=== PATIENT | male | born 1935 | race Caucasian/White ===

== ENCOUNTER 2019-09-14 13:17 | Outpatient (CLI) | payer MEDICARE, SELFPAY ==
--- NOTE | ~2019-09-14 | XR_ITS ---
EXAMINATION: XR lg joint inject/asp w image DATE: 09/14/2019 14:19 INDICATION: Right hip pain TECHNIQUE: A time-out was performed to verify the patient's name, date of , and procedure to b e performed. The procedure including the risks, benefits, and alternatives was discussed with the pat ient. Risks discussed included bleeding and infection. The patient understood the risks and agreed to proceed. The skin overlying the right hip joint was prepped and draped in usual sterile fashion. A nesthetic was administered with 1% lidocaine subcutaneously. A 22 G needle was advanced under fluoro scopic guidance into the joint. Injection of 0.6 mL of Omnipaque 240 confirmed intra-articular posit ion of the needle. Subsequently, injectate consisting of 5 mm of a 3:2 mixture of 1% lidocaine: 10 m g/mL Kenalog for a total dosage of 20 mg Kenalog was instilled. Washout of contrast was seen confirmi ng intra-articular administration. The needle was removed and the entry site was cleaned and dressed. There were no immediate complications. Fluoroscopy exposure time was 0.1 minutes. The total number of images was 2. FINDINGS: Real-time fluoroscopy demonstrates the needle in the right hip joint. Severe right hip oste oarthritis. Patient's pain prior to procedure:5/10. Patient's pain following the procedure: 4/10. IMPRESSION: 1. Right hip injection of local anesthetic and steroid with mild decrease in the patient's presenting pain. Reviewed, dictated and finalized at location A. UNICATIONS MANAGER IMPRESSION: 1. Right hip injection of local anesthetic and steroid with mild decrease in th e patient's presenting pain.
== END 2019-09-14 13:18 | disposition home or self-care (01) ==
PROVIDERS: PCP Family Medicine; Visit Provider Orthopaedic Surgery
DX: M16.11 Unilateral primary osteoarthritis, right hip (principal)
CPT/HCPCS: 20610; 77002; J3301; Q9966

== ENCOUNTER 2020-01-04 11:39 | Outpatient (CLI) | payer MEDICARE, SELFPAY ==
--- NOTE | ~2020-01-04 | XR_ITS ---
EXAMINATION: XR lg joint inject/asp w image DATE: 01/04/2020 12:52 INDICATION: Unilateral primary osteoarthritis of the right hip TECHNIQUE: A time-out was performed to verify the patient's name, date of , and procedure to b e performed. The procedure including the risks, benefits, and alternatives was discussed with the pat ient. Risks discussed included bleeding and infection. The patient understood the risks and agreed to proceed. The skin overlying the right hip joint was prepped and draped in usual sterile fashion. A nesthetic was administered with 1% lidocaine subcutaneously. A 22 G needle was advanced under fluoro scopic guidance into the joint. Injection of 0.6 mL of Omnipaque 240 confirmed intra-articular posit ion of the needle. Subsequently, injectate consisting of 7 mm of a 5:2 mixture of 1% lidocaine: 10 m g/mL Kenalog for a total dose of 20 mg Kenalog was instilled. Washout of contrast was seen confirming intra-articular administration. The needle was removed and the entry site was cleaned and dressed. There were no immediate complications. Fluoroscopy exposure time was 0.1 minutes. The total number of images was 2. FINDINGS: Real-time fluoroscopy demonstrates the needle in the right hip joint. Patient's pain prior to procedure:6/10. Patient's pain following the procedure: 2/10. Severe osteoarthritis of the right hip. IMPRESSION: 1. Right hip injection of local anesthetic and steroid with decrease in the patient's presenting pain . Reviewed, dictated and finalized at location A. IMPRESSION: 1. Right hip injection of local anesthetic and steroid with decrease in the pat ient's presenting pain.
== END 2020-01-04 11:40 | disposition home or self-care (01) ==
PROVIDERS: PCP Family Medicine; Visit Provider Orthopaedic Surgery
DX: M16.11 Unilateral primary osteoarthritis, right hip (principal)
CPT/HCPCS: 20610; 77002; J3301; Q9966

== ENCOUNTER 2020-07-07 13:03 | Outpatient (CLI) | payer MEDICARE, SELFPAY ==
--- NOTE | ~2020-07-07 | XR_ITS ---
EXAMINATION: XR lg joint inject/asp w image DATE: 07/07/2020 13:59 INDICATION: Unilateral primary osteoarthritis of the right hip TECHNIQUE: A time-out was performed to verify the patient's name, date of , and procedure to b e performed. The procedure including the risks, benefits, and alternatives was discussed with the pat ient. Risks discussed included bleeding and infection. The patient understood the risks and agreed to proceed. The skin overlying the right hip joint was prepped and draped in usual sterile fashion. A nesthetic was administered with 1% lidocaine subcutaneously. A 22 G needle was advanced under fluoro scopic guidance into the joint. Injection of 0.4 mL of Omnipaque 240 confirmed intra-articular posit ion of the needle. Subsequently, injectate consisting of 7 mL of a 5:2 mixture of 1% lidocaine: 10 m g/mL Kenalog for a total dosage of 20 mg Kenalog was instilled. Washout of contrast was seen confirmi ng intra-articular administration. The needle was removed and the entry site was cleaned and dressed. There were no immediate complications. Fluoroscopy exposure time was 0.2 minutes. The total number of images was 2. FINDINGS: Real-time fluoroscopy demonstrates the needle in the right hip joint. Patient's pain prior to procedure:9/10. Patient's pain following the procedure: 0/10. IMPRESSION: 1. Right hip joint injection of local anesthetic and steroid with decrease in the patient's presentin g pain. Reviewed, dictated and finalized at location A. MACHINIST IMPRESSION: 1. Right hip joint injection of local anesthetic and steroid with decrease in t he patient's presenting pain.
== END 2020-07-07 13:04 | disposition home or self-care (01) ==
PROVIDERS: PCP Family Medicine; Visit Provider Orthopaedic Surgery
DX: M16.11 Unilateral primary osteoarthritis, right hip (principal)
CPT/HCPCS: 20610; 77002; J3301; Q9966

== ENCOUNTER 2020-09-29 07:59 | Outpatient (CLI) | payer MEDICARE, SELFPAY ==
--- NOTE | 2020-09-29 09:08 | ECG_ITS ---
Measurements Intervals [place] Rate: 80 P: 26 MS: 155 QRS: -51 QRSD: 100 T: 30 QT: 361 QTc: 417 Interpretive Statements SINUS RHYTHM ATRIAL AND VENTRICULAR PREMATURE COMPLEXES LEFT AXIS DEVIATION VOLTAGE CRITERIA FOR LVH BORDERLINE R WAVE PROGRESSION, ANTERIOR LEADS BORDERLINE T WAVE ABNORMALITY- INFERIOR LEADS BASELINE ARTIFACT- I, II, III, AVR, AVL, AVF, V1 BORDERLINE ECG Electronically Signed On 09-29-2020 9:30:46 [employer] by Joseph Devries D.O.
[2020-09-29 09:55] LABS: Basophils Absolute Auto 0.1 K/mm3 (0.0-0.1); Eosinophils Absolute Auto 0.2 K/mm3 (0-0.3); Hematocrit 44.7 % (42.0-52.0); Immature Granulocyte Absolute 0.02 K/mm3 (0.00-0.031); Immature Granulocyte Percent A 0.4 % (0-0.5); Lymphocytes Absolute Auto 1.14 K/mm3 (0.9-3.2); Lymphocytes Percent Auto 22.4 % (18.3-44.2); Mean Corpuscular HGB Conc 33.6 g/dl (32-36); Mean Corpuscular Hemoglobin 32.9 pg (26-34); Mean Platelet Volume 10.6 fl (7.4-10.4); Monocytes Absolute Auto 0.6 K/mm3 (0.1-0.6); Monocytes Percent Auto 10.8 % (2.6-8.5); Neutrophils Absolute Auto 3.2 K/mm3 (1.3-6.7); Neutrophils Percent Auto 62.4 % (45.5-73.1); Platelet Count Result 158 k/mm3 (150-375); Red Blood Count 4.56 M/mm3 (4.6-6.20); Red Cell Distribution Width 12.7 % (11.5-14.5); White Blood Count 5.1 K/mm3 (4.5-10.0)
[2020-09-29 10:04] LABS: Hemoglobin A1C 5.1 % (<5.7)
[2020-09-29 10:15] LABS: Albumin Level 3.8 g/dL (3.5-5.1); Estimated Glomerular Filt Rate > 60; Glucose 90 mg/dL (75-110)
[2020-09-29 18:32] LABS: Urine Cotinine NEGATIVE
== END 2020-09-29 08:00 | disposition home or self-care (01) ==
LOC: ANHSURGERY 08:01
PROVIDERS: PCP Family Medicine; Visit Provider Orthopaedic Surgery
DX: M16.11 Unilateral primary osteoarthritis, right hip (principal); Z01.818 Encounter for other preprocedural examination; R94.31 Abnormal electrocardiogram [ECG] [EKG]
CPT/HCPCS: 80307; 82040; 82565; 82947; 83036; 85025; 86850; 86900; 86901; 87081; 93005

== ENCOUNTER 2020-10-05 12:35 | Outpatient (CLI) | payer MEDICARE, SELFPAY ==
--- NOTE | 2020-10-05 13:00 | ECHO_ITS ---
Patient Info Name: Pablo Isaac Age: 84 years : 1935 Gender: Male Ht: 69 in Wt: 225 lbs BSA: 2.26 m2 HR: 75 bpm BP: 125 / 72 mmHg Technical Quality: Good Exam Date: 10/05/2020 1:24 PM Exam Location: [facility] Patient Status: Outpatient Admit Date: 10/05/2020 Staff Ordering Physician: Gonzalez Braxton MD Manager Quality Systems: Gregg Peters, TEO, RT Attending Provider: Gonzalez Braxton MD Referring Physician: Fox CURRY; Exam Type: CA echo doppler color flow Study Info Indications R01.1 - Cardiac murmur, unspecified Complete two-dimensional, color flow and Doppler transthoracic echocardiogram is performed. Strain analysis performed. Summary 1. Complete two-dimensional, color flow and Doppler transthoracic echocardiogram is performed. 2. Left ventricular chamber dimension is normal. 3. Left ventricular systolic function is normal, estimated at 65-70%. 4. There is moderately increased left ventricular wall thickness. 5. The left ventricular diastolic function is grade I diastolic dysfunction. 6. E/e '11 is mildly elevated. 7. Global longitudinal strain is normal at -22.1%. 8. Left atrial chamber dimension is mildly enlarged. 9. There is moderate aortic valve sclerosis. 10. There is mild to moderate aortic valve regurgitation. 11. There is mild tricuspid valve regurgitation. 12. No pulmonary hypertension, estimated pulmonary arterial systolic pressure is 31 mmHg. Left Ventricle E/e '11 is mildly elevated. Global longitudinal strain is normal at -22.1%. Left ventricular chamber dimension is normal. Left ventricular systolic function is normal, estimated at 65-70%. There is moderately increased left ventricular wall thickness. The left ventricular diastolic function is grade I diastolic dysfunction. Right Ventricle Right ventricular chamber dimension is normal. Right ventricular systolic function is normal. Left Atria Left atrial chamber dimension is mildly enlarged. Right Atria Right atrial chamber dimension is normal. Aortic Valve The aortic valve is trileaflet. There is moderate aortic valve sclerosis. There is no aortic valve stenosis. There is mild to moderate aortic valve regurgitation. Pulmonic Valve There is no pulmonic regurgitation. Mitral Valve There is no mitral valve stenosis. There is no mitral valve regurgitation. Tricuspid Valve There is mild tricuspid valve regurgitation. No pulmonary hypertension, estimated pulmonary arterial systolic pressure is 31 mmHg. Pericardium/Pleural There is no pericardial effusion. Inferior Vena Cava Normal inferior vena cava with >50% collapse upon inspiration consistent with normal right atrial pressure, 5 mmHg. Aorta The aortic root size at the sinus of Valsalva is normal. Left Ventricular Outflow Tract Name Value Normal LVOT 2D LVOT Diameter 2.2 cm LVOT Doppler LVOT Peak Gradient 6 mmHg LVOT Mean Gradient 2 mmHg LVOT VTI 23 cm LVOT VTI/AV VTI Ratio 0.4 LVOT Stroke Vo
== END 2020-10-05 12:36 | disposition home or self-care (01) ==
LOC: ANHCARD 12:36
PROVIDERS: PCP Family Medicine; Visit Provider Family Medicine
DX: R01.1 Cardiac murmur, unspecified (principal); I36.1 Nonrheumatic tricuspid (valve) insufficiency; I35.1 Nonrheumatic aortic (valve) insufficiency
CPT/HCPCS: 93306

== ENCOUNTER → 2020-10-07 00:14 | Outpatient (CLI) | payer MEDICARE, SELFPAY ==
[2020-10-07 18:59] LABS: SARS-CoV-2 RNA PCR Negative
== END ==
PROVIDERS: PCP Family Medicine; Visit Provider Orthopaedic Surgery
DX: Z01.812 Encounter for preprocedural laboratory examination (principal); Z20.822 Contact with and (suspected) exposure to COVID-19
CPT/HCPCS: C9803; U0003; U0005

== ENCOUNTER 2020-10-11 15:28 | Inpatient (IN) | payer MEDICARE, SELFPAY ==
[2020-09-29 08:10] VITALS: BMI 32.3
[2020-09-29 09:12] VITALS: BP 136/75; PULSE 72; RESP 16; TEMP 37.1; O2SAT 98
[2020-10-10] VITALS (15 sets, daily range): BP systolic 106–167; BP diastolic 52–85; PULSE 77–101; RESP 15–26; TEMP 36.3–37; O2SAT 93–100; BMI 31.9
[2020-10-10] MEDS: ACETAMINOPHEN 500 MG TABLET 1000 MG PO ×3 (06:23→21:51)
[2020-10-10] MEDS: LACTATED RINGERS 1,000 ML 30 ML IV CONT ×2 (06:35→10:40)
[2020-10-10] MEDS: TRANEXAMIC ACID 1,000MG/ISO100 1,000 MG/100 ML BAG 200 MG IVPB (06:35)
--- NOTE | 2020-10-10 06:35 | WPDANESEPPF ---
Anes - Initial Pre Proc Eval Procedure: Operation Date: 10/10/20 07:30 Proposed Procedures p Right Total Hip Arthroplasty, Standard Approach - Omer Leger MD Date/Time: 10/10/20 06:35 Surgeon: Omer Leger MD Pre Op Diagnosis: OA Right Hip Patient Data Age: 84 Gender: M Height: 1.78 m Weight: 102.2 kg Last Vital Signs Temp 37.1 C 09/29/20 09:12 Pulse 72 09/29/20 09:12 Resp 16 09/29/20 09:12 BP 136/75 09/29/20 09:12 Pulse Ox 98 09/29/20 09:12 Allergies Allergy/AdvReac Type Severity Reaction Status Date / Time Aminoglycosides Allergy Mild FACIAL Verified 10/04/20 11:42 SWELLING hydrocortisone Allergy Mild FACIAL Verified 10/04/20 11:42 SWELLING neomycin Allergy Mild FACIAL Verified 10/04/20 11:42 SWELLING atropine Allergy Unknown itching Verified 10/04/20 11:42 polymyxin B Allergy FACIAL Verified 10/04/20 11:42 SWELLING codeine AdvReac Unknown Unknown Verified 10/04/20 11:42 hydrocodone AdvReac Unknown caused Verified 10/04/20 11:42 more pain Home Medications Medication Instructions Recorded Confirmed Type oxybutynin chloride 10 mg 10 mg PO PRN PRN 07/08/19 10/04/20 History tablet,extended release 24 hr aspirin 81 mg tablet,delayed 81 mg PO QNOON 08/26/19 10/04/20 History release calcium carbonate 600 mg calcium 600 mg PO DAILY 01/22/20 10/04/20 History (1,500 mg) tablet carboxymethylcellulose sodium 0.5 2 drop EACH EYE DAILY ml 01/22/20 10/04/20 History % eye drops ibuprofen 200 mg tablet 600 mg PO BID PRN tablet 01/22/20 10/04/20 History naproxen sodium 220 mg capsule 440 mg PO BID PRN cap 01/22/20 10/04/20 History polyethylene glycol 3350 17 17 gm PO PRN PRN 01/22/20 10/04/20 History gram/dose oral powder vit C 250 mg-vit E 90 mg-zinc 40 2 tablet PO ONCE cap 01/22/20 10/04/20 History mg-copper 1 ke-rbkabv-htwvfl capsule acetaminophen [Tylenol Arthritis 650 mg PO Q12H PRN 09/29/20 10/04/20 History Pain] cholecalciferol (vitamin D3) 25 mcg PO DAILY 09/29/20 10/04/20 History diclofenac sodium 2 gm TOPICAL DAILY 09/29/20 10/04/20 History doxazosin 8 mg PO QPM 09/29/20 10/04/20 History ketoconazole 1 applic TOPICAL PRN PRN 09/29/20 10/04/20 History vitamin B complex 1 tablet PO DAILY 09/29/20 10/04/20 History rivaroxaban 10 mg tablet 10 mg PO DAILY #14 tablet 10/04/20 10/04/20 Rx Patient hx anesthesia problems: none Family hx anesthesia problems: none PMFSH Past Medical History Medical History (Updated 10/10/20 @ 06:39 by Marco Stuart DO) Aortic regurgitation mild - moderate Cataracts, bilateral Essential (primary) hypertension History of cancer prostate 2010 Osteoarthritis of right hip Surgical History Surgical History H/O cataract extraction H/O hemorrhoidectomy H/O hernia repair H/O prostatectomy History of appendectomy History of knee replacement Hx of tonsillectomy Family History Family History Grandparent Family history of mental disorder Family history of sudden Father Hypertension Family history of malignant neoplasm of stomach Family history of primary malignant neoplasm of liver Social History Social History Additional smoking assessment comments: DENIES ANY FORM OF TOBACCO USE Alcohol intake: current Living arrangements: with family Spiritual care concerns: No Anes - Eval Final PreProcedure Day of Procedure 10/10/20 06:35 Patient weight: obese Heart: regular rate and rhythm Lungs: clear to auscultation and normal air movement Airway: Mallampati scale class III Neurological: alert and oriented Last oral intake: >/= 8 hours ASA classification: III Emergent: no Anesthetic plan: proceed Anesthesia type and monitoring: general ETT and standard monitoring Informed Consent: The patient's
--- NOTE | 2020-10-10 07:16 | WPDHPUPDATE1 ---
History and Physical Update Update Date/Time: 10/10/20 07:16 History and Physical has been reviewed, including an updated exam of the patient. There are NO changes in the patient's condition. Risks, benefits, and alternatives have been discussed and questions answered. Patient agrees to proceed with procedure.
[2020-10-10] MEDS: ceFAZolin 2 GM/D5W 50 ML 2 GM/50 ML BAG IVPB ×3 (07:28→23:34)
[2020-10-10] MEDS: TRANEXAMIC ACID 1,000 MG/10 ML AMPUL 1000 MG TOPICAL (08:40)
[2020-10-10] MEDS: BUPIVACAINE/EPINEPHRINE 0.25% 50 ML VIAL INFILTRATE (08:40)
[2020-10-10] MEDS: ceFAZolin SODIUM 1 GM VIAL IV PUSH (09:33)
--- NOTE | 2020-10-10 10:34 | P.OP_ITS ---
Procedure Note - Detailed Date of procedure: 10/10/20 Pre-op diagnosis: OA Right Hip Post-op diagnosis: same Procedure performed: right total hip replacement - anterolateral approach Description of procedure: Patient was identified and proper site identified. He was taken back to the operating room and transferred to the OR table. After general anesthetic induction and intubation, he was put in the left lateral decubitus position in the usual manner for a right hip procedure taking care to properly pad and position is torso and extremities. The right hip and thigh were prepped and draped in usual sterile fashion. A curvilinear incision was made over proximal femur. Subcutaneous tissue was sharply dissected down to the gluteus fascia and ITB band was divided in line with the incision. The anterior 1/2 of the abductors were dissected sharply off of the greater trochanter. There is an area of abductor insufficiency anteriorly. Capsule was identified and divided in an inverted T-fashion. The hip was dislocated and a neck cut made one fingerbreadth above the level of the lesser trochanter. The acetabulum was exposed and cleared of debris. It was sequentially reamed up to 57 mm. A 58 G7 cup was impacted into position in about 40? of abduction and 15? of anteversion following the patient's anatomy. Trial liner was placed. Attention was turned to the femur. It was reamed and broached up to a size 12 ingrowth s tem. Intraoperative x-rays showed good position of the hardware but that the femur could be sized up one more size. The trial liner was removed and the real liner for the 36 head seated. The femur was reamed and broached up to size 13. A 13 Integral high offset stem was then seated. This construct with a 36+ 0 head gave good sikh of leg lengths with excellent stability. The neck of the femoral component was cleaned and dried and real 36+ 0 ceramic head was seated. Hip again reduced and stability assessed and was noted be stable through range of motion. Wound was irrigated with a copious amount of sterile saline. 60 cc of 0.25% Marcaine and epinephrine solution was injected around the surgical site and 1 g tranexamic acid was left deep in the wound. The capsule was repaired with 2. Vicryl and 2. Ethibond suture. The abductor was repaired back to the greater trochanter with 5. Ethibond passed through a bony bridge and margin oversewn with 2. Vicryl. IT band was reapproximated with 0 looped PDS suture as was the deeper layers of the subcu. Skin reapproximated with two 0 strata fix and tissue adhesive. Sterile dressing was applied. He tolerated procedure well. He was returned to the supine position awakened, extubated transferred to a bed and taken recovery in stable condition. There were no known intraoperative complications. Estimated blood loss 20 50 cc. He received perioperative antibiotics. Anesthesia: GETA Surgeon: Omer Leger MD Regional Climate Change Analyst: Zunilda Martinez Estimated blood loss (mL): 250 Drains: No Packing: No Pathology: none sent Complications: No immediate complications Condition: stable Disposition: PACU
--- NOTE | 2020-10-10 11:00 | ECG_ITS ---
Measurements Intervals [place] Rate: 86 P: 48 MA: 184 QRS: 13 QRSD: 89 T: 57 QT: 348 QTc: 417 Interpretive Statements SINUS RHYTHM ATRIAL PREMATURE COMPLEX LOW QRS VOLTAGE IN LIMB LEADS BASELINE ARTIFACT- III, AVF, V1, V4-V6 BORDERLINE ECG Electronically Signed On 10-10-2020 11:28:39 CDT by Joseph Devries D.O.
[2020-10-10 12:03] LABS: Troponin I < 0.012 ng/mL (0.000-0.034)
--- NOTE | 2020-10-10 12:14 | ADMGEN ---
This patient, Pablo Isaac, was admitted to 2 Medical Room 256-. Patient/family oriented to hospital policies and general routines including ID bracelet, bed and alarms, visiting hours, pain management, procedures, bathroom and other care routines, personal items, smoking policy, room service/diet, and visiting hours. Information on how to activate the Rapid Response Team has been discussed. Patient/Family are encouraged to report perceived risks to care and to ask questions if they do not understand what they are told or what they should do.
[2020-10-10] MEDS: SODIUM CHLORIDE 0.9% IV 1,000 ML 100 ML IV CONT (12:30)
[2020-10-10] MEDS: oxyCODONE HCL (*CRX) 5 MG TAB IR PO ×4 (12:31→21:51)
[2020-10-10 12:35] LABS: Hematocrit 41.7 % (42.0-52.0); Hemoglobin 14.2 g/dL (14.0-18.0)
[2020-10-10 14:40] LABS: Troponin I < 0.012 ng/mL (0.000-0.034)
--- NOTE | 2020-10-10 15:22 | PM.IMCN ---
Assessment and Plan Assessment and plan (1) Chest pain: Code(s): R07.9 - Chest pain, unspecified Status: Acute Assessment and Plan: Pablo sIaac is a 84 year old male with history of hypertension cardiac murmur for which patient had echo which was essentially normal with ejection fraction of 65% and no significant valvular stenosis, patient with severe osteoarthritis of the right knee had right knee total arthroplasty, surgery was uncomplicated however after the surgery patient felt left-sided chest pain and described as a pressure I do recall from anesthesiologist and we were consulted for further management, from OR first trope was ordered and it was negative and there were no acute changes on EKG. Patient currently sitting in the chair, patient is still complains of left-sided chest pain with deep breath and pain is not reproducible, so far 2 sets of cardiac enzymes are negative will follow-up on the 3rd however patient is clinically stable does not appear to be in acute coronary syndrome, does complaint of right hip and knee pain which is chronic and status post right knee total arthroplasty. Patient is present in the room. (2) Essential (primary) hypertension: Code(s): I10 - Essential (primary) hypertension Status: Acute Assessment and Plan: will monitor (3) Knee pain: Code(s): M25.569 - Pain in unspecified knee Status: Acute Assessment and Plan: Plan is above HPI Data of Consult Consult date: 10/10/20 Requesting Physician: Omer Leger MD Primary Care Provider: Gonzalez Braxton MD Consult Narrative Narrative: Pablo Isaac is a 84 year old male with history of hypertension cardiac murmur for which patient had echo which was essentially normal with ejection fraction of 65% and no significant valvular stenosis, patient with severe osteoarthritis of the right knee had right knee total arthroplasty, surgery was uncomplicated however after the surgery patient felt left-sided chest pain and described as a pressure I do recall from anesthesiologist and we were consulted for further management, from OR first trope was ordered and it was negative and there were no acute changes on EKG. Patient currently sitting in the chair, patient is still complains of left-sided chest pain with deep breath and pain is not reproducible, so far 2 sets of cardiac enzymes are negative will follow-up on the 3rd however patient is clinically stable does not appear to be in acute coronary syndrome, does complaint of right hip and knee pain which is chronic and status post right knee total arthroplasty. Patient is present in the room. Review of Systems Review of Systems: All systems reviewed & are unremarkable except as noted in HPI and below PMFSH Past Medical History Medical History (Updated 10/10/20 @ 16:06 by Bobby Yoo MD) Aortic regurgitation mild - moderate Cataracts, bilateral Essential (primary) hypertension History of cancer prostate 2010 Osteoarthritis of right hip Surgical History Surgical History H/O cataract extraction H/O hemorrhoidectomy H/O hernia repair H/O prostatectomy History of appendectomy History of knee replacement Hx of tonsillectomy Family History Family History Grandparent Family history of mental disorder Family history of sudden Father Hypertension Family history of malignant neoplasm of stomach Family history of primary malignant neoplasm of liver Social History Social History Additional smoking assessment comments: DENIES ANY FORM OF TOBACCO USE Alcohol intake: never Substance use: never Substance use type: does not use Spiritual care concerns: No Meds Home Medications and Allergies Home Medications Medication Instructions Rec
[2020-10-10] MEDS: DOCUSATE SODIUM 100 MG CAPSULE PO (17:52)
[2020-10-10] MEDS: DOXAZOSIN MESYLATE 4 MG TABLET 8 MG PO (18:49)
[2020-10-10] MEDS: FAMOTIDINE 20 MG TABLET PO (21:52)
[2020-10-11] VITALS (7 sets, daily range): BP systolic 113–158; BP diastolic 42–85; PULSE 92–106; RESP 16; TEMP 36.3–37; O2SAT 92–97
--- NOTE | ~2020-10-11 | XR_ITS ---
EXAMINATION: XR chest 1V portable DATE: 10/12/2020 05:41 INDICATION: Left pneumothorax. TECHNIQUE: A single frontal view of the chest was obtained. COMPARISON: Chest single view 10/11/2020 FINDINGS: There are airspace opacities in all lung zones bilaterally. No pleural effusion. There is a small left pneumothorax. There is a left-sided chest tube in expected position. The heart size is no rmal. There are prominent paracardial fat pads. IMPRESSION: 1. Worsened small left pneumothorax. Left-sided chest tube in expected position. 2. Stable diffuse lung disease, consistent with pulmonary edema versus pneumonia. Reviewed, dictated and finalized at location A. IMPRESSION: 1. Worsened small left pneumothorax. Left-sided chest tube in expected position . 2. Stable diffuse lung disease, consistent with pulmonary edema versus pneumoni a.
--- NOTE | ~2020-10-11 | XR_ITS ---
EXAMINATION: XR chest 1V portable DATE: 10/15/2020 05:47 INDICATION: Pneumothorax TECHNIQUE: frontal view of the chest was obtained. COMPARISON: Chest radiograph dated 10/14/2020 FINDINGS: Unchanged left chest tube projecting over the mid left lung zone. Tiny residual left pneumothorax. Th ere is extensive chest wall gas projecting over the left and right hemithoraces. Small lung volumes. Opacities in the bilateral lower lung zones. No pneumothorax or definitive pleural effusion. Cardiome les. IMPRESSION: 1. No interval change in a left chest tube or of a tiny residual left pneumothorax. 2. Small lung volumes with opacities in bilateral lower lung zones which could represent atelectasis and/or pneumonia. Reviewed, dictated and finalized at location A. IMPRESSION: 1. No interval change in a left chest tube or of a tiny residual left pneumotho rax. 2. Small lung volumes with opacities in bilateral lower lung zones which could represent atelectasis and/or pneumonia.
--- NOTE | ~2020-10-11 | XR_ITS ---
EXAMINATION: XR chest 1V portable DATE: 10/14/2020 05:54 INDICATION: Left pneumothorax. TECHNIQUE: A single frontal view of the chest was obtained. COMPARISON: Chest single view 10/13/2020 FINDINGS: There are airspace opacities in the mid and lower lung zones. No pleural effusion or pneumo thorax. There is a left-sided chest tube in expected position. The heart size is normal. There are pr ominent paracardial fat pads. There is gas in left chest wall. IMPRESSION: 1. Left-sided chest tube in expected position. No pneumothorax. 2. Stable airspace opacities in the mid and lower lung zones, consistent with atelectasis versus pneu monia. Reviewed, dictated and finalized at location A. IMPRESSION: 1. Left-sided chest tube in expected position. No pneumothorax. 2. Stable airspace opacities in the mid and lower lung zones, consistent with a telectasis versus pneumonia.
--- NOTE | ~2020-10-11 | XR_ITS ---
EXAMINATION: XR chest 1V portable EXAM DATE: 10/14/2020 14:03 INDICATION: Follow-up left-sided pneumothorax. TECHNIQUE: Portable AP frontal chest x-ray was obtained. Comparison is made to prior examination from earlier same date. FINDINGS: Much more extensive subcutaneous gas is present. There is a left-sided chest tube in positi on. Probable identification of the small left pneumothorax, pleural reflection indicated. This appear s unchanged compared to prior study. There is patchy bibasilar atelectasis, edema or pneumonia. There is tortuosity of the aorta. No sizable pleural effusion. Cardiac silhouette is enlarged but stable i n size compared to prior exam. Thoracic spondylosis and diffuse idiopathic skeletal hyperostosis. IMPRESSION: 1. Small left pneumothorax unchanged. 2. Patchy bibasilar atelectasis, edema and/or pneumonia. 3. Progression of subcutaneous emphysema. Reviewed, dictated and finalized at location A.
--- NOTE | ~2020-10-11 | XR_ITS ---
EXAMINATION: XR surgery orthopedic DATE: 10/10/2020 09:27 INDICATION: Intraoperative evaluation during right total hip arthroplasty TECHNIQUE: Frontal view of the right hip was obtained. COMPARISON: 10/04/2020 FINDINGS: Intraoperative image during a right total hip arthroplasty demonstrate placement of an acetabular com ponent which appears in near anatomic alignment on the single image provided. Again seen is some mixe d lucency and sclerosis at the cephalad aspect of the acetabulum likely related to the prior advanced osteoarthritis. A femoral broach is in place with the proximal tip centered over the acetabular comp onent. Portions of the pelvis are obscured by overlying surgical instrumentation. No fractures in the visualized bones. IMPRESSION: 1. Expected appearance during right total hip arthroplasty. Reviewed, dictated and finalized at location B.
--- NOTE | ~2020-10-11 | XR_ITS ---
EXAMINATION: XR chest 1V portable DATE: 10/14/2020 08:37 INDICATION: Left pneumothorax. Chest tube placed to waterseal. TECHNIQUE: A single frontal view of the chest was obtained. COMPARISON: Chest single view at 5:37 AM FINDINGS: There are airspace opacities in the mid and lower lung zones. No pleural. There is a small left pneumothorax. The heart size is normal. There are prominent paracardial fat pads. There is a lef t-sided chest tube in expected position. There is gas in left chest wall. IMPRESSION: 1. Worsened small left pneumothorax. Left-sided chest tube in expected position. 2. Stable airspace opacities in the mid and lower lung zones, consistent with atelectasis versus pneu monia. Reviewed, dictated and finalized at location A. IMPRESSION: 1. Worsened small left pneumothorax. Left-sided chest tube in expected position . 2. Stable airspace opacities in the mid and lower lung zones, consistent with a telectasis versus pneumonia.
--- NOTE | ~2020-10-11 | XR_ITS ---
EXAMINATION: XR hip RT min 2V EXAM DATE: 10/10/2020 10:51 INDICATION: Postoperative right hip replacement. TECHNIQUE: Portable frontal projection right hip obtained immediately following arthroplasty. Proce soniyae performed by Omer Leger MD. FINDINGS: Patient is status post right hip arthroplasty. The orthopedic hardware is in expected pos ition. There is small amount of subcutaneous gas, some soft tissue swelling. Correlate with proce dure note. IMPRESSION: Status post right hip arthroplasty. Reviewed, dictated and finalized at location A.
--- NOTE | ~2020-10-11 | XR_ITS ---
EXAMINATION: XR chest 1V portable DATE: 10/16/2020 05:46 INDICATION: Pneumothorax TECHNIQUE: frontal view of the chest was obtained. COMPARISON: Chest radiograph dated 10/15/2020 FINDINGS: No interval change in a chest tube projecting obliquely across the mid left hemithorax. There is exte nsive subcutaneous edema bilaterally throughout the chest and extending into the neck which somewhat limits assessment of underlying fine pulmonary parenchymal detail. No evident pneumothorax or pleural effusion. Persistent opacities in the bilateral mid and lower lung zones. Borderline heart size acco unting for AP technique. IMPRESSION: 1. Unchanged left chest tube with no discernible residual pneumothorax. Sensitivity for small pneumot horax is however decreased by the superimposed pattern of extensive subcutaneous edema. Line 2. Persistent mild opacities in the bilateral mid and lower lung zones which could represent atelecta sis and/or pneumonia. Reviewed, dictated and finalized at location A. IMPRESSION: 1. Unchanged left chest tube with no discernible residual pneumothorax. Sensiti vity for small pneumothorax is however decreased by the superimposed pattern of extensive subcutaneous edema. Line 2. Persistent mild opacities in the bilateral mid and lower lung zones which co uld represent atelectasis and/or pneumonia.
--- NOTE | ~2020-10-11 | XR_ITS ---
EXAMINATION: XR chest-chest tube insert/pos EXAM DATE: 10/11/2020 15:20 INDICATION: Chest tube placement. TECHNIQUE: Portable AP frontal chest x-ray was obtained. Comparison is made to prior examination from earlier same date. FINDINGS: Interval insertion of a left-sided chest tube, reexpansion of the left lung. There is some residual reexpansion atelectasis. There is cardiomegaly and pulmonary vascular congestion. Indistinct bilateral reticulation, consider edema and/or infection. Possible small pleural effusions. There are bony degenerative changes. IMPRESSION: 1. Resolution left pneumothorax following chest tube insertion. Reexpanding atelectasis. 2. Bilateral indistinct reticulation, moderate amount of edema and/or infection. Reviewed, dictated and finalized at location A. IMPRESSION: 1. Resolution left pneumothorax following chest tube insertion. Reexpanding at [facility]. 2. Bilateral indistinct reticulation, moderate amount of edema and/or infectio n.
--- NOTE | ~2020-10-11 | XR_ITS ---
EXAMINATION: XR chest 1V portable DATE: 10/11/2020 13:55 INDICATION: Dyspnea. TECHNIQUE: A single frontal view of the chest was obtained. COMPARISON: Chest 2 views 05/01/13 FINDINGS: The patient is rotated to his left. There is a large left pneumothorax. There are mild airs pace opacities in right lung. No pleural effusion. The heart size is normal. IMPRESSION: 1. Large left pneumothorax. I called this result to Dr. Yoo. 2. Mild airspace opacities in right lung, consistent with atelectasis versus pulmonary edema versus p neumonia. Reviewed, dictated and finalized at location A. IMPRESSION: 1. Large left pneumothorax. I called this result to Dr. Yoo. 2. Mild airspace opacities in right lung, consistent with atelectasis versus pu lmonary edema versus pneumonia.
--- NOTE | ~2020-10-11 | XR_ITS ---
XR chest 1V portable 10/17/2020 05:57 Indication: Follow-up pneumothorax Procedure: AP portable chest Comparison: Comparison to multiple prior studies sequentially, with oldest reviewed study dated 10/14. Findings: Interval removal of left chest tube. No definite residual pneumothorax identified. There is extensive subcutaneous emphysema of the chest wall. There is diffuse bilateral airspace disease whic h may represent edema or pneumonia. Small left pleural effusion. Impression: 1: Persistent unchanged bilateral airspace disease which comparison pneumonia or edema. 2: No definite pneumothorax identified post chest tube removal. Reviewed, dictated and finalized at location A. Impression: 1: Persistent unchanged bilateral airspace disease which comparison pneumonia o r edema. 2: No definite pneumothorax identified post chest tube removal.
--- NOTE | ~2020-10-11 | XR_ITS ---
EXAMINATION: XR chest 1V portable DATE: 10/13/2020 05:45 INDICATION: Left pneumothorax. TECHNIQUE: A single frontal view of the chest was obtained. COMPARISON: Chest single view 10/12/2020 FINDINGS: There are airspace opacities in all lung zones bilaterally with a lower lung predominance. No pleural effusion or pneumothorax. There is a left-sided chest tube in expected position. The heart size is normal. There are prominent paracardial fat pads. There is gas in left chest wall. IMPRESSION: 1. No pneumothorax. Left-sided chest tube in expected position. 2. Stable diffuse lung disease, consistent with pulmonary edema versus pneumonia. Reviewed, dictated and finalized at location A. IMPRESSION: 1. No pneumothorax. Left-sided chest tube in expected position. 2. Stable diffuse lung disease, consistent with pulmonary edema versus pneumoni a.
[2020-10-11] MEDS: oxyCODONE HCL (*CRX) 5 MG TAB IR 10 MG PO (01:53)
[2020-10-11 05:48] LABS: Anion Gap 2 mmol/L (8-16); Blood Urea Nitrogen 20 mg/dL (9-20); Calcium 8.2 mg/dL (8.4-10.2); Carbon Dioxide 27 mmol/L (22-30); Chloride 101 mmol/L (98-107); Estimated CRCL calculation 74 ml/min; Estimated Glomerular Filt Rate > 60; Glucose 134 mg/dL (75-110); Potassium 4.2 mmol/L (3.4-5.0); Sodium 130 mmol/L (137-145)
[2020-10-11] MEDS: ACETAMINOPHEN 500 MG TABLET 1000 MG PO ×3 (06:38→20:41)
[2020-10-11] MEDS: ceFAZolin 2 GM/D5W 50 ML 2 GM/50 ML BAG IVPB (06:38)
[2020-10-11] MEDS: oxyCODONE HCL (*CRX) 5 MG TAB IR PO ×3 (06:38→15:50)
--- NOTE | 2020-10-11 07:30 | PM.PNORT ---
Progress Note: A&P Assessment and Plan (1) History of hip replacement: Qualifiers: Laterality: right Qualified Code(s): Z96.641 - Presence of right artificial hip joint Code(s): Z96.649 - Presence of unspecified artificial hip joint Status: Acute Assessment and Plan: 84-year-old male postop day 1 right total hip replacement done through an anterolateral approach. So far he is doing well. I think the chest wall pain that he had was likely secondary to the position of the axillary roll. It has completely resolved. Given his age and ability to get around, I think that he would probably be be a good candidate for a short-term rehab stay. We will work on that and see if that would be available for him tomorrow. Appreciate hospitalist input. Time Spent With Patient Time with patient: 15 - 25 minutes Subjective Subjective Date/Time Seen: 10/11/20 07:30 Interval history: This document created with [id number] technology and is subject to pediatric physician irregularities. 84-year-old male postop day 1 right total hip replacement. Chest wall pain that he had yesterday afternoon and evening has resolved. EKG noted to be unremarkable and troponins as well. Review of Systems Constitutional: Constitutional: Denies chills and Denies fever(s) Eyes: Eyes: Reports no additional eye complaints ENT: Reports system reviewed and no additional complaints, except as documented Cardiovascular: Cardiovascular: Denies chest pain and Denies dyspnea on exertion Respiratory: Respiratory: Reports no additional respiratory complaints and Denies dyspnea on exertion Gastrointestinal: Gastrointestinal: Denies abdominal pain and Denies bloating Exam Const: General: cooperative, no acute distress and alert Nutritional Appearance: other Orientation/consciousness: patient oriented x3 Limitations: no limitations HENMT: Head: normal to inspection Ears: hearing grossly normal bilaterally Face and sinus: face symmetric Mouth: Yes moist mucous membranes Teeth and gingiva: fair dentition Eyes: Alignment and Position: alignment normal and position normal Sclera: sclerae normal Neck: Neck: normal visual inspection and nontender Chest: Chest palpation & inspection: normal inspection of the chest Resp: Effort & Inspection: normal respiratory effort and able to speak in complete sentences GI: Inspection: other (Obese but nondistended) Skin: General skin exam: normal color Rashes: no rashes Neuro: General: patient oriented x3 Cognition (Neuro): normal cognition Speech: normal speech Gait exam (Neuro): Other gait observations present Sensory Exam: normal sensation Extrem: General: normal to inspection and other Other: Exam of the right hip wound shows it to be well opposed and the dressing is dry. No erythema and very little swelling. CT is negative. Grossly motor and sensory function intact to right lower extremity. Exam limited somewhat secondary to right hip. Pain. Psych: Appearance: grossly normal Mental Status: mental status grossly normal Objective Data Vital Signs Vital Signs: Vital Signs - 24 hr 10/10/20 10:40 10/10/20 10:45 10/10/20 11:00 Temperature 98.6 F Pulse Rate 77 79 83 Respiratory Rate 18 20 26 H Blood Pressure 119/52 L 138/54 L 124/64 Pulse Oximetry 98 99 95 10/10/20 11:15 10/10/20 11:30 10/10/20 11:45 Temperature Pulse Rate 86 91 90 Respiratory Rate 21 H 24 H 15 Blood Pressure 143/68 H 137/65 145/72 H Pulse Oximetry 96 95 96 10/10/20 12:00 10/10/20 12:07 10/10/20 12:15 Temperature 97.3 F L Pulse Rate 94 91 92 Respiratory Rate 21 H 20 16 Blood Pressure 148/79 H 144/75 H 146/68 H Pulse Oximetry 99 98 96 10/10/20 12:30 10/10/20 13:00 10/10/20 14:00 Temperature 97.4 F L 97.4 F L 97.8 F Pulse Rate 98 101 H 98 Respiratory Rate 16 16 16 Blood Pressure 147/63 H 149/65 H 106/85 Pulse Oximetry 97 100 93 10/10/20 18:00 10/10/20 22:00 10/11/20 01:54 Temperat
[2020-10-11] MEDS: CHOLECALCIFEROL 1,000 UNITS TABLET 1000 UNITS PO (08:21)
[2020-10-11] MEDS: CALCIUM CARBONATE (OSCAL) 500 MG TABLET PO (08:21)
[2020-10-11] MEDS: DOCUSATE SODIUM 100 MG CAPSULE PO ×2 (08:21→17:26)
[2020-10-11] MEDS: RIVAROXABAN 10 MG TABLET PO (08:22)
[2020-10-11] MEDS: FAMOTIDINE 20 MG TABLET PO ×2 (08:22→20:41)
--- NOTE | 2020-10-11 09:07 | WPDANESPN ---
Anes - Prog Note Post-Op Date/Time: 10/11/20 09:07 Cardiovascular status: normal Respiratory status: normal Airway patency: baseline Mental status: baseline Post-Op hydration status: normal Vital Signs: Last Vital Signs Temp 36.4 C L 10/11/20 05:54 Pulse 92 10/11/20 05:54 Resp 16 10/11/20 05:54 BP 130/42 L 10/11/20 05:54 Pulse Ox 94 10/11/20 05:54 Pain Score (VAS): 0/10. Patient resting up to bedside chair at time of assessment, appears comfortable. PT at bedside. I/O: Intake & Output 10/10/20 10/11/20 10/11/20 23:59 07:59 15:59 Intake Total 1490 500 480 Output Total 300 500 Balance 1190 0 480 Laboratory Tests 10/10/20 12:28 10/11/20 05:14 10/10/20 10/10/20 10/10/20 11:33 12:28 14:11 Hgb 14.2 Hct 41.7 L Sodium Potassium Chloride Carbon Dioxide Anion Gap BUN Creatinine Estim Creat Clear Calc Estimated GFR Glucose Calcium Troponin I < 0.012 < 0.012 10/11/20 05:14 Hgb Hct Sodium 130 L Potassium 4.2 Chloride 101 Carbon Dioxide 27 Anion Gap 2 L BUN 20 Creatinine 0.80 Estim Creat Clear Calc 74 Estimated GFR > 60 Glucose 134 H Calcium 8.2 L Troponin I Post-procedural complaints: none Patient Feedback: Patient satisfied with anesthetic care.
--- NOTE | 2020-10-11 09:57 | PCOTNOTE ---
Attempted to see patient, patient declined at this time due to fatigue. Will attempt patient later this AM or early PM to see for OT.
[2020-10-11 11:36] LABS: Glucose Point of Care 151 (65-105)
--- NOTE | 2020-10-11 13:16 | PM.IMPN ---
Progress Note: A&P Assessment and Plan (1) Chest pain: Code(s): R07.9 - Chest pain, unspecified Status: Acute Assessment and Plan: 10/11/20 13:16 10/10 Pablo Isaac is a 84 year old male with history of hypertension cardiac murmur for which patient had echo which was essentially normal with ejection fraction of 65% and no significant valvular stenosis, patient with severe osteoarthritis of the right knee had right knee total arthroplasty, surgery was uncomplicated however after the surgery patient felt left-sided chest pain and described as a pressure I receive a call from anesthesiologist and we were consulted for further management, from OR first trope was ordered and it was negative and there were no acute changes on EKG. Patient currently sitting in the chair, patient is still complains of left-sided chest pain with deep breath and pain is not reproducible, so far 2 sets of cardiac enzymes are negative will follow-up on the however patient is clinically stable does not appear to be in acute coronary syndrome, does complaint of right hip and knee pain which is chronic and status post right knee total arthroplasty. Patient is present in the room. 10/05 today patient lying in the bed chest pain has resolved patient 3 sets of cardiac enzymes are negative unlikely coronary artery syndrome most likely secondary to mechanical support placed on the left side to to prevent injury to left brachial plexus, did participate in physical therapy, discussed with orthopedic surgeon will monitor patient overnight and continue physical therapy, patient will benefit going to rehab before going home. (2) Essential (primary) hypertension: Code(s): I10 - Essential (primary) hypertension Status: Acute Assessment and Plan: will monitor (3) Knee pain: Code(s): M25.569 - Pain in unspecified knee Status: Acute Assessment and Plan: Plan is above Subjective Date/time seen: 10/11/20 13:16 10/10 Pablo Isaac is a 84 year old male with history of hypertension cardiac murmur for which patient had echo which was essentially normal with ejection fraction of 65% and no significant valvular stenosis, patient with severe osteoarthritis of the right knee had right knee total arthroplasty, surgery was uncomplicated however after the surgery patient felt left-sided chest pain and described as a pressure I receive a call from anesthesiologist and we were consulted for further management, from OR first trope was ordered and it was negative and there were no acute changes on EKG. Patient currently sitting in the chair, patient is still complains of left-sided chest pain with deep breath and pain is not reproducible, so far 2 sets of cardiac enzymes are negative will follow-up on the however patient is clinically stable does not appear to be in acute coronary syndrome, does complaint of right hip and knee pain which is chronic and status post right knee total arthroplasty. Patient is present in the room. 10/05 today patient lying in the bed chest pain has resolved patient 3 sets of cardiac enzymes are negative unlikely coronary artery syndrome most likely secondary to mechanical support placed on the left side to to prevent injury to left brachial plexus, did participate in physical therapy, discussed with orthopedic surgeon will monitor patient overnight and continue physical therapy, patient will benefit going to rehab before going home. Review of Systems Review of Systems: All systems reviewed & are unremarkable except as noted in HPI and below Exam Narrative: Exam Narrative: Moderately obese Patient is comfortable, NAD HEENT: eyes are clear and none icteric LUNGS:CTA HEART: RR S1S2 ABD: BS+, Soft and nontender Lower extremities: no edema MS: Right knee in wound dressing SKIN: nonjaundiced Neuro: grossly intact. Objective Data Vital Signs Vital Signs: Vital Signs - 24 hr 10/10/20
--- NOTE | 2020-10-11 13:30 | PC.NURSE ---
Patient has not voided since catheter removed at 0600 this morning. Patient has attempted to void several times without success. Patient sitting up in chair and denies urge to void. Patient has been drinking po fluids all day. Assisted patient back to bed with assistance of MACHINE OPERATOR HAY STACKER, walker and gait belt. Bladder scanned patient. Scanner reveals < 100 cc urine in bladder. VS obtained. Patient noted to be tachycardic with HR in the low 100s and O2 sat 79-80% on room air. O2 applied at 2 liters per nasal cannula. After taking deep breaths for several minutes, O2 sat increased to 94% on 2 liters. Patient appears slightly short of breath but also c/o pain to right hip after transferring to bed. Notified Dr. Yoo of O2 sat and patient's bladder scan results. Orders received for stat portable CXR.
--- NOTE | 2020-10-11 14:00 | PC.NURSE ---
CXR results revealed large left sided pneumothorax. Dr. Liang consult obtained. Supplies ordered for chest tube insertion and consent obtained. Results explained to patient by Dr. Yoo. Attempted to call patient's without success. Will discuss with her when she arrives back at the hospital.
--- NOTE | 2020-10-11 14:30 | PC.NURSE ---
Kay Leger of pneumothorax and chest tube insertion.
--- NOTE | 2020-10-11 15:00 | PC.NURSE ---
Patient's here. Discussed chest tube insertion with and gave her education on pneumothorax and chest tube. verbalized her understanding of both.
[2020-10-11] MEDS: LIDO 1%/EPINEPHRINE 1:100,000 20 ML VIAL INFILTRATE ×2 (15:10)
[2020-10-11] MEDS: MORPHINE SULFATE (*CRX) 2 MG/ML INJ IV PUSH (15:12)
--- NOTE | 2020-10-11 15:16 | PM.CNGS ---
Assessment and Plan Assessment and plan (1) Pneumothorax, left: Code(s): J93.9 - Pneumothorax, unspecified Status: Acute Assessment and Plan: Patient is post-op day 1 right total hip replacement. Found to have a large left pneumothorax on chest x-ray today. Discussed the patient's case with Dr. Liang. He will urgently place a left-sided chest tube at the bedside today (see procedure note). I discussed the treatment plan with the patient, including the procedure, risks, benefits, and expected outcomes. I also discussed with him that we would expect the chest tube to remain in place for a few days while this resolves. We will continue to monitor him with serial chest x-rays and exams. Will put the chest tube to -20 cm wall suction for today and repeat a chest x-ray in the morning. Encouraged him to continue IS use. Thank you for allowing us to see the patient in consultation and we will continue to follow along with you. (2) Chest pain: Code(s): R07.9 - Chest pain, unspecified Status: Acute Assessment and Plan: Secondary to the left pneumothorax. Cardiac work-up negative. See plan above. (3) History of hip replacement: Qualifiers: Laterality: right Qualified Code(s): Z96.641 - Presence of right artificial hip joint Code(s): Z96.649 - Presence of unspecified artificial hip joint Status: Acute (4) Essential (primary) hypertension: Code(s): I10 - Essential (primary) hypertension Status: Acute Additional Plan Discussed the patient's case and plan of care with Dr. Liang. 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 Following surgery, he had complaints of left-sided chest pain and Hospitalist was consulted. EKG showed no acute ischemic changes. Labs showed negative Troponins x 2. The patient has been on the medical floor and apparently got up with nursing staff to try and use the urinal. He was noted to have increased shortness of breath with exertion. After getting back to bed, the patient remained short of breath and his vital signs were checked with an oxygen saturation of 79%. Chest x-ray was obtained and showed a large left pneumothorax. Our service was subsequently consulted for chest tube placement. The patient is now seen on the medical floor. He is still short of breath at rest. His oxygen saturation is 95% on 3L O2 and his heart rate is 105. No other complaints at this time. Denies ever having a pneumothorax in the past. Lifelong non-smoker. Review of Systems Constitutional: Constitutional: Reports as per HPI, Denies chills, Denies fatigue, Denies fever(s) and Denies headache(s) Eyes: Eyes: Reports no additional eye complaints, Denies change in vision, Denies diplopia and Denies loss of vision ENT: Reports Normal hearing present, Denies dizziness and Denies headache(s) Cardiovascular: Cardiovascular: Reports no additional cardiovascular complaints, Reports chest pain (left-sided chest pain, resolved) and Reports dyspnea Respiratory: Respiratory: Reports no additional respiratory complaints, Reports dyspnea, Reports dyspnea on exertion and Reports wheezing Gastrointestinal: Gastrointestinal: Reports no additional gastrointestinal complaints, Denies abdominal pain and Denies vomiting Genitourinary: Genitourinary: Reports no additional male genitourinary complaints and Reports oliguria Musculoskeletal: Musculoskeletal: Reports no additional musculoskeletal complaints, Reports as per HPI and Reports arthralgias (right hip, s/p YOSI) Neurologic: Reports system reviewed and no additional complaints, except as documented, Denies confusion and Denies dizziness PMFSH Past Medical History Medical History (Reviewed 10/11/20 @ 15:3
--- NOTE | 2020-10-11 15:24 | PCPTNOTE ---
The patient treatment was not able to be completed this afternoon due to patient having procedure bedside. Will plan to continue treatment per plan of care.
--- NOTE | 2020-10-11 16:46 | P.OP_ITS ---
Procedure Note - Detailed Date of procedure: 10/11/20 Pre-op diagnosis: Spontaneous left pneumothorax Spontaneous left pneumothorax Post-op diagnosis: same Procedure performed: Placement left chest tube Description of procedure: Patient was in his hospital bed slightly short of breath but in no acute distress. The left anterior chest was prepped with chlorhexidine. Local anesthetic was infiltrated medial to the nipple areola complex overlying the 6th rib in the midclavicular line. Additional local was infiltrated in the subcutaneous and in the pectoralis major muscle. More local was infiltrated overlying the 6th rib into the intercostal muscle. I then used a curved clamp and bluntly dissected a tunnel down into the intercostal muscle over the 6th rib. A 28 Cuban trocar chest tube was then slowly advanced just over the 6th rib and into the left pleural space. A bateman of air came through the chest tube. Little or no pleural fluid came back. The tube was placed immediately to Pleur-Evac suction. There was some bubbling consistent with air leak but not a severe leak. A sterile occlusive dressing was placed over the site. Portable chest x-ray was performed and showed the chest tube to be in go od position with complete re-expansion of the lung. Patient tolerated the procedure well. Anesthesia: local (0.5% lidocaine with epinephrine) Surgeon: Leobardo iLang MD Software Engineer Developer: ISELA Rahman Estimated blood loss (mL): 2 Drains: Yes (Left chest tube) Packing: No Pathology: none sent Complications: No immediate complications Condition: stable Disposition: floor Findings: Left chest tube in good position by postprocedure chest x-ray, left lung fully re-expanded.
[2020-10-11 17:21] LABS: Hematocrit 39.2 % (42.0-52.0); Hemoglobin 13.5 g/dL (14.0-18.0); Mean Corpuscular HGB Conc 34.4 g/dl (32-36); Mean Corpuscular Hemoglobin 33.5 pg (26-34); Mean Corpuscular Volume 97.3 fl (80-100); Mean Platelet Volume 10.2 fl (7.4-10.4); Platelet Count Result 148 k/mm3 (150-375); Red Blood Count 4.03 M/mm3 (4.6-6.20); Red Cell Distribution Width 12.6 % (11.5-14.5); White Blood Count 13.6 K/mm3 (4.5-10.0)
[2020-10-11] MEDS: DOXAZOSIN MESYLATE 4 MG TABLET 8 MG PO (17:26)
[2020-10-11 23:58] LABS: SARS-CoV-2 RNA PCR Negative
[2020-10-12] VITALS (8 sets, daily range): BP systolic 127–153; BP diastolic 57–76; PULSE 97–108; RESP 16–18; TEMP 36.3–36.9; O2SAT 94–96
[2020-10-12] MEDS: oxyCODONE HCL (*CRX) 5 MG TAB IR 10 MG PO ×2 (01:34→20:33)
[2020-10-12 05:52] LABS: Anion Gap 4 mmol/L (8-16); Blood Urea Nitrogen 19 mg/dL (9-20); Calcium 8.6 mg/dL (8.4-10.2); Carbon Dioxide 29 mmol/L (22-30); Chloride 101 mmol/L (98-107); Estimated CRCL calculation 60 ml/min; Estimated Glomerular Filt Rate > 60; Glucose 110 mg/dL (75-110); Potassium 4.2 mmol/L (3.4-5.0); Sodium 134 mmol/L (137-145)
[2020-10-12] MEDS: ACETAMINOPHEN 500 MG TABLET 1000 MG PO ×3 (06:08→20:34)
[2020-10-12] MEDS: CHOLECALCIFEROL 1,000 UNITS TABLET 1000 UNITS PO (08:59)
[2020-10-12] MEDS: DOCUSATE SODIUM 100 MG CAPSULE PO ×2 (08:59→16:43)
[2020-10-12] MEDS: FAMOTIDINE 20 MG TABLET PO ×2 (08:59→20:34)
[2020-10-12] MEDS: FUROSEMIDE INJ 40 MG/4 ML VIAL IV PUSH (08:59)
[2020-10-12] MEDS: CALCIUM CARBONATE (OSCAL) 500 MG TABLET PO (09:00)
[2020-10-12] MEDS: RIVAROXABAN 10 MG TABLET PO (09:00)
--- NOTE | 2020-10-12 09:16 | PM.PNGS ---
Progress Note: A&P Assessment and Plan (1) Pneumothorax, left: Code(s): J93.9 - Pneumothorax, unspecified Status: Acute Assessment and Plan: Continue chest tube to continuous suction today. Doubt a tiny apical pneumothorax will change his progress significantly. Recheck chest x-ray again tomorrow. Probably place chest tube to water seal tomorrow. Hopefully remove chest tube Saturday or at latest Saturday. Subjective Subjective Date/Time Seen: 10/12/20 09:16 Post Op day: 1 Patient reports: no new complaints, feels better and pain is less Review of Systems Review of Systems: All systems reviewed & are unremarkable except as noted in HPI and below Constitutional: Constitutional: Denies headache(s) Cardiovascular: Cardiovascular: Denies chest pain and Denies dyspnea Respiratory: Respiratory: Denies cough and Denies dyspnea Neurologic: Denies confusion and Denies headache(s) Exam Const: General: comfortable and no acute distress; No confusion Orientation/consciousness: patient oriented x3 and No confusion Resp: Effort & Inspection: normal respiratory effort and other (No pleural leak noted) Auscultation: clear to auscultation bilaterally Neuro: General: patient oriented x3, no focal motor deficits and No confusion Objective Data Vital Signs Vital Signs: Vital Signs - 24 hr 10/11/20 10:00 10/11/20 13:57 10/11/20 17:55 Temperature 36.3 C L 37.0 C Pulse Rate 106 H 100 Respiratory Rate 16 16 Blood Pressure 113/44 L 140/52 L Pulse Oximetry 93 92 97 10/11/20 20:00 10/11/20 22:00 10/12/20 02:00 Temperature 36.9 C 36.7 C Pulse Rate 100 95 97 Respiratory Rate 16 16 18 Blood Pressure 158/85 H 128/71 Pulse Oximetry 97 94 96 10/12/20 06:00 10/12/20 07:45 Temperature 36.3 C L 36.9 C Pulse Rate 102 H 108 H Respiratory Rate 18 18 Blood Pressure 148/76 H 140/75 Pulse Oximetry 96 95 Intake/Output Intake/Output: Intake & Output 10/09/20 10/10/20 10/11/20 10/12/20 23:59 23:59 23:59 23:59 Intake Total 1840 1610 550 Output Total 500 950 800 Balance 1340 660 -250 Meds/Results Medications: Active Medications Generic Name Dose Route Start Last Admin Trade Name Freq PRN Reason Stop Dose Admin Acetaminophen 1,000 mg 10/10/20 14:00 10/12/20 06:08 Acetaminophen 500 Mg Tablet PO 1,000 mg Q8H MAIKEL Administration Calcium Carbonate 500 mg 10/11/20 09:00 10/12/20 09:00 Calcium Carbonate (Oscal) 500 Mg Tablet PO 500 mg QAM MIAKEL Administration Docusate Sodium 100 mg 10/10/20 17:00 10/12/20 08:59 Docusate Sodium 100 Mg Capsule PO 100 mg BID MAIKEL Administration Doxazosin Mesylate 8 mg 10/10/20 18:00 10/11/20 17:26 Doxazosin Mesylate 4 Mg Tablet PO 8 mg QPM MAIKEL Administration Famotidine 20 mg 10/10/20 21:00 10/12/20 08:59 Famotidine 20 Mg Tablet PO 20 mg Q12HR MAIKEL Administration Hydroxyzine HCl 50 mg 10/10/20 12:09 Hydroxyzine Hcl 25 Mg Tablet PO Q4H PRN Itching Cefazolin Sodium 1 gm in 50 mls @ 100 mls/hr 10/11/20 17:00 10/12/20 09:00 Ancef 1 Gm/D5w 50 Ml Pm IVPB 100 mls/hr Q8H MAIKEL Administration Magnesium Hydroxide 30 ml 10/10/20 12:09 Magnesium Hydroxide Susp 30 Ml Udc PO BID PRN Constipation Morphine Sulfate 1 mg 10/11/20 16:52 Morphine Sulfate (*Crx) 2 Mg/Ml Inj IV PUSH Q2H PRN Pain Rated 4-6 Morphine Sulfate 2 mg 10/11/20 16:55 Morphine Sulfate (*Crx) 2 Mg/Ml Inj IV PUSH Q2H PRN Pain Rated 7-10 Naloxone HCl 0.1 mg 10/10/20 12:09 Naloxone Hcl 0.4 Mg/Ml Vial IV PUSH Q2M PRN Opiate Reversal Ondansetron HCl 4 mg 10/10/20 12:09 Ondansetron Inj 4 Mg/2 Ml Vial IV PUSH Q4H PRN Nausea And Vomiting Oxybutynin Chloride 10 mg 10/10/20 12:09 10/12/20 06:11 Oxybutynin Chloride Xl 5 Mg Tab.Er.24 PO 10 mg PRN PRN Administration Bladder Spasms Oxycodone HCl 5 mg 10/10/20 12:09 10/11/20 15:50 Oxycod
--- NOTE | 2020-10-12 12:07 | PM.IMPN ---
Progress Note: A&P Assessment and Plan (1) Chest pain: Code(s): R07.9 - Chest pain, unspecified Status: Acute Assessment and Plan: 10/12/20 12:07 10/10 Pablo Isaac is a 84 year old male with history of hypertension cardiac murmur for which patient had echo which was essentially normal with ejection fraction of 65% and no significant valvular stenosis, patient with severe osteoarthritis of the right knee had right knee total arthroplasty, surgery was uncomplicated however after the surgery patient felt left-sided chest pain and described as a pressure I receive a call from anesthesiologist and we were consulted for further management, from OR first trope was ordered and it was negative and there were no acute changes on EKG. Patient currently sitting in the chair, patient is still complains of left-sided chest pain with deep breath and pain is not reproducible, so far 2 sets of cardiac enzymes are negative will follow-up on the however patient is clinically stable does not appear to be in acute coronary syndrome, does complaint of right hip and knee pain which is chronic and status post right knee total arthroplasty. Patient is present in the room. 10/11 today patient lying in the bed chest pain has resolved patient 3 sets of cardiac enzymes are negative unlikely coronary artery syndrome most likely secondary to mechanical support placed on the left side to to prevent injury to left brachial plexus, did participate in physical therapy, discussed with orthopedic surgeon will monitor patient overnight and continue physical therapy, patient will benefit going to rehab before going home. 10/12, late afternoon pm 10/11 patient left sided chest patient was getting worse and he was short of breath, to further evaluate patient had CXR, received the call from radiologist that patient has a large left sided pneumothorax, I called Dr. Liang and Dr Liang came and place a chest tube and repeat chest x-ray showed resolution of the pneumothorax, this morning patient was seen by Garth, repeat chest x-ray showed small apical pneumo, patient chest tube continous suction, will continue to monitor and further recommendation to follow, chest x-ray is concerning for pulmonary congestion will give Laxis 40mg IV x1. patient will be seen by his orthopedic and further recommendation to follow. (2) Essential (primary) hypertension: Code(s): I10 - Essential (primary) hypertension Status: Acute Assessment and Plan: will monitor (3) Knee pain: Code(s): M25.569 - Pain in unspecified knee Status: Acute Assessment and Plan: Plan is above Subjective Date/time seen: 10/12/20 12:07 10/10 Pablo Isaac is a 84 year old male with history of hypertension cardiac murmur for which patient had echo which was essentially normal with ejection fraction of 65% and no significant valvular stenosis, patient with severe osteoarthritis of the right knee had right knee total arthroplasty, surgery was uncomplicated however after the surgery patient felt left-sided chest pain and described as a pressure I receive a call from anesthesiologist and we were consulted for further management, from OR first trope was ordered and it was negative and there were no acute changes on EKG. Patient currently sitting in the chair, patient is still complains of left-sided chest pain with deep breath and pain is not reproducible, so far 2 sets of cardiac enzymes are negative will follow-up on the however patient is clinically stable does not appear to be in acute coronary syndrome, does complaint of right hip and knee pain which is chronic and status post right knee total arthroplasty. Patient is present in the room. 10/11 today patient lying in the bed chest pain has resolved patient 3 sets of cardiac enzymes are negative unlikely coronary artery syndrome most likely secondary to mechanical support placed on the left side to to prevent injur
--- NOTE | 2020-10-12 12:08 | PM.PNORT ---
Progress Note: A&P Assessment and Plan (1) History of hip replacement: Qualifiers: Laterality: right Qualified Code(s): Z96.641 - Presence of right artificial hip joint Code(s): Z96.649 - Presence of unspecified artificial hip joint Status: Acute Assessment and Plan: Continue with the rehab at this point as his comfort allows. Currently on the total hip therapy protocol. Anticipate discharge to SNF later this week. Appreciate the input of the hospitalists and General surgery. (2) Pneumothorax, left: Code(s): J93.9 - Pneumothorax, unspecified Status: Acute Assessment and Plan: Chest tube management plans per Dr. Liang. Subjective Subjective Date/Time Seen: 10/12/20 12:08 Post Op day: 2 Principal diagnosis: Status post right total hip replacement Interval history: This document created with [id number] technology and is subject to plug making operator irregularities. 82-year-old male who is postop day two right total hip replacement. He was diagnosed with a left pneumothorax yesterday and had a chest tube placed. He feels much better today. Does complain of some stiffness in his right hip area. Pain is well controlled. Review of Systems Constitutional: Constitutional: Denies chills and Denies fever(s) Eyes: Eyes: Reports no additional eye complaints ENT: Reports system reviewed and no additional complaints, except as documented Cardiovascular: Cardiovascular: Denies chest pain and Denies dyspnea on exertion Respiratory: Respiratory: Reports no additional respiratory complaints and Denies dyspnea on exertion Gastrointestinal: Gastrointestinal: Denies abdominal pain and Denies bloating Exam Const: General: cooperative, no acute distress and alert Nutritional Appearance: other Orientation/consciousness: patient oriented x3 Limitations: no limitations HENMT: Head: normal to inspection Ears: hearing grossly normal bilaterally Face and sinus: face symmetric Mouth: Yes moist mucous membranes Teeth and gingiva: fair dentition Eyes: Alignment and Position: alignment normal and position normal Sclera: sclerae normal Neck: Neck: normal visual inspection and nontender Chest: Chest palpation & inspection: normal inspection of the chest Resp: Effort & Inspection: normal respiratory effort and able to speak in complete sentences GI: Inspection: other (Nondistended) Skin: General skin exam: normal color Rashes: no rashes Neuro: General: patient oriented x3 Cognition (Neuro): normal cognition Speech: normal speech Gait exam (Neuro): Other gait observations present Motor exam (neuro): 5/5 motor strength present throughout Sensory Exam: normal sensation Extrem: General: normal to inspection and other Other: Exam of the right hip shows dry dressing, minimal swelling, no erythema. Neurovascular status right lower extremity unremarkable. Psych: Appearance: grossly normal Mental Status: mental status grossly normal Objective Data Vital Signs Vital Signs: Vital Signs - 24 hr 10/11/20 13:57 10/11/20 17:55 10/11/20 20:00 Temperature 98.6 F Pulse Rate 100 100 Respiratory Rate 16 16 Blood Pressure 140/52 L Pulse Oximetry 92 97 97 10/11/20 22:00 10/12/20 02:00 10/12/20 06:00 Temperature 98.4 F 98.0 F 97.4 F L Pulse Rate 95 97 102 H Respiratory Rate 16 18 18 Blood Pressure 158/85 H 128/71 148/76 H Pulse Oximetry 94 96 96 10/12/20 07:45 10/12/20 08:45 Temperature 98.4 F Pulse Rate 108 H Respiratory Rate 18 Blood Pressure 140/75 132/76 Pulse Oximetry 95 96 Intake/Output Intake/Output: Intake & Output 10/09/20 10/10/20 10/11/20 10/12/20 23:59 23:59 23:59 23:59 Intake Total 1840 / 1840 1610 / 1610 600 / 600 Output Total 500 / 500 950 / 950 800 / 800 Balance 1340 / 1340 660 / 660 -200 / -200 Meds/Results Medications: Active Medications Generic Name Dose Route Start Last Admin Trade Name Freq PRN Reason Stop Dose Admin A
--- NOTE | 2020-10-12 15:16 | PC.NURSE ---
On 10/12/20, the student, [Cristina Garnett ], provided care and completed [facility] documentation on this patient. I have reviewed the student's documentation and agree with the findings.
[2020-10-12] MEDS: DOXAZOSIN MESYLATE 4 MG TABLET 8 MG PO (16:46)
[2020-10-12 17:37] LABS: Hematocrit 38.9 % (42.0-52.0); Hemoglobin 13.5 g/dL (14.0-18.0); Mean Corpuscular HGB Conc 34.7 g/dl (32-36); Mean Corpuscular Hemoglobin 33.6 pg (26-34); Mean Corpuscular Volume 96.8 fl (80-100); Mean Platelet Volume 10.4 fl (7.4-10.4); Platelet Count Result 147 k/mm3 (150-375); Red Blood Count 4.02 M/mm3 (4.6-6.20); Red Cell Distribution Width 12.7 % (11.5-14.5); White Blood Count 13.8 K/mm3 (4.5-10.0)
[2020-10-13] VITALS (11 sets, daily range): BP systolic 117–134; BP diastolic 68–77; PULSE 86–107; RESP 16–22; TEMP 36.3–36.6; O2SAT 95–97
[2020-10-13 06:01] LABS: Anion Gap 5 mmol/L (8-16); Blood Urea Nitrogen 31 mg/dL (9-20); Calcium 8.9 mg/dL (8.4-10.2); Carbon Dioxide 26 mmol/L (22-30); Chloride 100 mmol/L (98-107); Estimated CRCL calculation 38 ml/min; Estimated Glomerular Filt Rate 42; Glucose 106 mg/dL (75-110); Potassium 4.1 mmol/L (3.4-5.0); Sodium 131 mmol/L (137-145)
[2020-10-13] MEDS: ACETAMINOPHEN 500 MG TABLET 1000 MG PO ×3 (06:07→21:50)
--- NOTE | 2020-10-13 09:58 | PM.PNGS ---
Progress Note: A&P Assessment and Plan (1) Pneumothorax, left: Code(s): J93.9 - Pneumothorax, unspecified Status: Acute Assessment and Plan: Still has an air leak. Will continue chest tube to suction again today. Recheck chest x-ray again tomorrow. (2) History of hip replacement: Qualifiers: Laterality: right Qualified Code(s): Z96.641 - Presence of right artificial hip joint Code(s): Z96.649 - Presence of unspecified artificial hip joint Status: Acute Subjective Subjective Date/Time Seen: 10/13/20 09:58 Post Op day: 2 Patient reports: feels better, pain is less and other (Breathing better today) Review of Systems Review of Systems: All systems reviewed & are unremarkable except as noted in HPI and below Constitutional: Constitutional: Denies headache(s) Cardiovascular: Cardiovascular: Denies chest pain and Denies dyspnea Respiratory: Respiratory: Denies cough and Denies dyspnea Neurologic: Denies confusion and Denies headache(s) Exam Const: General: comfortable and no acute distress; No confusion Orientation/consciousness: patient oriented x3 and No confusion Resp: Effort & Inspection: normal respiratory effort, able to speak in complete sentences, no audible wheezes, no cough and other (Still has some bubbling consistent with air leak from chest tube.) Auscultation: clear to auscultation bilaterally Neuro: General: patient oriented x3, no focal motor deficits and No confusion Extrem: General: no calf tenderness and no edema Psych: Affect: normal affect Insight: Good insight present (Psych) Judgement: Good judgement present (Psych) Objective Data Vital Signs Vital Signs: Vital Signs - 24 hr 10/12/20 14:00 10/12/20 18:00 10/12/20 20:00 Temperature 36.7 C 36.9 C Pulse Rate 105 H 106 H 106 H Respiratory Rate 18 18 18 Blood Pressure 153/76 H 127/57 L Pulse Oximetry 95 95 95 10/12/20 22:00 10/13/20 02:00 10/13/20 06:00 Temperature 36.8 C 36.6 C 36.5 C Pulse Rate 100 86 100 Respiratory Rate 16 16 16 Blood Pressure 130/64 117/68 126/72 Pulse Oximetry 94 95 95 10/13/20 08:10 Temperature Pulse Rate Respiratory Rate Blood Pressure Pulse Oximetry 96 Intake/Output Intake/Output: Intake & Output 10/10/20 10/11/20 10/12/20 10/13/20 23:59 23:59 23:59 23:59 Intake Total 1840 1610 1280 540 Output Total 326 278 3814 160 Balance 1340 660 280 380 Meds/Results Medications: Active Medications Generic Name Dose Route Start Last Admin Trade Name Freq PRN Reason Stop Dose Admin Acetaminophen 1,000 mg 10/10/20 14:00 10/13/20 06:07 Acetaminophen 500 Mg Tablet PO 1,000 mg Q8H MAIKEL Administration Calcium Carbonate 500 mg 10/11/20 09:00 10/12/20 09:00 Calcium Carbonate (Oscal) 500 Mg Tablet PO 500 mg QAM MAIKEL Administration Docusate Sodium 100 mg 10/10/20 17:00 10/12/20 16:43 Docusate Sodium 100 Mg Capsule PO 100 mg BID MAIKEL Administration Doxazosin Mesylate 8 mg 10/10/20 18:00 10/12/20 16:46 Doxazosin Mesylate 4 Mg Tablet PO 8 mg QPM MAIKEL Administration Famotidine 20 mg 10/10/20 21:00 10/12/20 20:34 Famotidine 20 Mg Tablet PO 20 mg Q12HR MAIKEL Administration Hydroxyzine HCl 50 mg 10/10/20 12:09 Hydroxyzine Hcl 25 Mg Tablet PO Q4H PRN Itching Cefazolin Sodium 1 gm in 50 mls @ 100 mls/hr 10/11/20 17:00 10/13/20 01:51 Ancef 1 Gm/D5w 50 Ml Pm IVPB Infused Q8H MAIKEL Infusion Magnesium Hydroxide 30 ml 10/10/20 12:09 Magnesium Hydroxide Susp 30 Ml Udc PO BID PRN Constipation Morphine Sulfate 1 mg 10/11/20 16:52 Morphine Sulfate (*Crx) 2 Mg/Ml Inj IV PUSH Q2H PRN Pain Rated 4-6 Morphine Sulfate 2 mg 10/11/20 16:55 Morphine Sulfate (*Crx) 2 Mg/Ml Inj IV PUSH Q2H PRN Pain Rated 7-10 Naloxone HCl 0.1 mg 10/10/20 12:09 Naloxone Hcl 0.4 Mg/Ml Vial IV PUSH Q2M PRN Opiate Reversal Ondansetron HCl 4 mg
[2020-10-13] MEDS: RIVAROXABAN 10 MG TABLET PO (09:59)
[2020-10-13] MEDS: CALCIUM CARBONATE (OSCAL) 500 MG TABLET PO (10:00)
[2020-10-13] MEDS: DOCUSATE SODIUM 100 MG CAPSULE PO ×2 (10:00→17:06)
[2020-10-13] MEDS: MAGNESIUM HYDROXIDE SUSP 30 ML UDC PO (10:00)
[2020-10-13] MEDS: FAMOTIDINE 20 MG TABLET PO ×2 (10:00→20:06)
[2020-10-13] MEDS: CHOLECALCIFEROL 1,000 UNITS TABLET 1000 UNITS PO (10:00)
--- NOTE | 2020-10-13 12:08 | PM.PNORT ---
Progress Note: A&P Assessment and Plan (1) History of hip replacement: Qualifiers: Laterality: right Qualified Code(s): Z96.641 - Presence of right artificial hip joint Code(s): Z96.649 - Presence of unspecified artificial hip joint Status: Acute (2) Pneumothorax, left: Code(s): J93.9 - Pneumothorax, unspecified Status: Acute Assessment and Plan: 84-year-old male postop day three right hip replacement. He is doing well with respect to that. Chest to being managed by Dr. Liang. His note was reviewed and his input/management appreciated. It looks like the patient may be able to go to the skilled facility over the weekend possibly. No change in therapy orders at this point. Currently on Xarelto for DVT prophylaxis. Subjective Subjective Date/Time Seen: 10/13/20 12:08 Post Op day: 3 Principal diagnosis: Status post right total hip replacement Interval history: This document created with [id number] technology and is subject to business intelligence developer irregularities. 84-year-old male postop day three right total hip replacement. Still as the chest to but not having any breathing difficulties. Tolerating therapy. Review of Systems Constitutional: Constitutional: Denies chills and Denies fever(s) Eyes: Eyes: Reports no additional eye complaints ENT: Reports system reviewed and no additional complaints, except as documented Cardiovascular: Cardiovascular: Denies chest pain and Denies dyspnea on exertion Respiratory: Respiratory: Reports no additional respiratory complaints and Denies dyspnea on exertion Gastrointestinal: Gastrointestinal: Denies abdominal pain and Denies bloating Exam Const: General: cooperative, no acute distress and alert Nutritional Appearance: other Orientation/consciousness: patient oriented x3 Resp: Effort & Inspection: normal respiratory effort and able to speak in complete sentences GI: Inspection: other (Nondistended, nontender) Extrem: General: normal to inspection and other Other: Exam of right hip wound shows that the dressing is dry. Very little swelling and no erythema. Neurovascular status right lower extremity is intact. Psych: Appearance: grossly normal Mental Status: mental status grossly normal Objective Data Vital Signs Vital Signs: Vital Signs - 24 hr 10/12/20 14:00 10/12/20 18:00 10/12/20 20:00 Temperature 98.1 F 98.5 F Pulse Rate 105 H 106 H 106 H Respiratory Rate 18 18 18 Blood Pressure 153/76 H 127/57 L Pulse Oximetry 95 95 95 10/12/20 22:00 10/13/20 02:00 10/13/20 06:00 Temperature 98.3 F 97.9 F 97.7 F Pulse Rate 100 86 100 Respiratory Rate 16 16 16 Blood Pressure 130/64 117/68 126/72 Pulse Oximetry 94 95 95 10/13/20 08:10 Temperature Pulse Rate Respiratory Rate Blood Pressure Pulse Oximetry 96 Intake/Output Intake/Output: Intake & Output 10/10/20 10/11/20 10/12/20 10/13/20 23:59 23:59 23:59 23:59 Intake Total 1840 / 1840 1610 / 1610 1280 / 1280 590 / 590 Output Total 500 / 500 950 / 950 1000 / 1000 160 / 160 Balance 1340 / 1340 660 / 660 280 / 280 430 / 430 Meds/Results Medications: Active Medications Generic Name Dose Route Start Last Admin Trade Name Freq PRN Reason Stop Dose Admin Acetaminophen 1,000 mg 10/10/20 14:00 10/13/20 06:07 Acetaminophen 500 Mg Tablet PO 1,000 mg Q8H MAIKEL Administration Calcium Carbonate 500 mg 10/11/20 09:00 10/13/20 10:00 Calcium Carbonate (Oscal) 500 Mg Tablet PO 500 mg QAM MAIKEL Administration Docusate Sodium 100 mg 10/10/20 17:00 10/13/20 10:00 Docusate Sodium 100 Mg Capsule PO 100 mg BID MAIKEL Administration Doxazosin Mesylate 8 mg 10/10/20 18:00 10/12/20 16:46 Doxazosin Mesylate 4 Mg Tablet PO 8 mg QPM MAIKEL Administration Famotidine 20 mg 10/10/20 21:00 10/13/20 10:00 Famotidine 20 Mg Tablet PO 20 mg Q12HR MAIKEL Administration Hydroxyzine HCl 50 mg 10/10/20 12:09 Hydroxyzine Hcl 25 Mg Ta
--- NOTE | 2020-10-13 12:18 | PM.IMPN ---
Progress Note: A&P Assessment and Plan (1) Chest pain: Code(s): R07.9 - Chest pain, unspecified Status: Acute Assessment and Plan: 10/13/20 12:18 10/10 Pablo Isaac is a 84 year old male with history of hypertension cardiac murmur for which patient had echo which was essentially normal with ejection fraction of 65% and no significant valvular stenosis, patient with severe osteoarthritis of the right knee had right knee total arthroplasty, surgery was uncomplicated however after the surgery patient felt left-sided chest pain and described as a pressure I receive a call from anesthesiologist and we were consulted for further management, from OR first trope was ordered and it was negative and there were no acute changes on EKG. Patient currently sitting in the chair, patient is still complains of left-sided chest pain with deep breath and pain is not reproducible, so far 2 sets of cardiac enzymes are negative will follow-up on the however patient is clinically stable does not appear to be in acute coronary syndrome, does complaint of right hip and knee pain which is chronic and status post right knee total arthroplasty. Patient is present in the room. 10/11 today patient lying in the bed chest pain has resolved patient 3 sets of cardiac enzymes are negative unlikely coronary artery syndrome most likely secondary to mechanical support placed on the left side to to prevent injury to left brachial plexus, did participate in physical therapy, discussed with orthopedic surgeon will monitor patient overnight and continue physical therapy, patient will benefit going to rehab before going home. 10/12, late afternoon pm 10/11 patient left sided chest patient was getting worse and he was short of breath, to further evaluate patient had CXR, received the call from radiologist that patient has a large left sided pneumothorax, I called Dr. Liang and Dr Liang came and place a chest tube and repeat chest x-ray showed resolution of the pneumothorax, this morning patient was seen by Garth, repeat chest x-ray showed small apical pneumo, patient chest tube continous suction, will continue to monitor and further recommendation to follow, chest x-ray is concerning for pulmonary congestion will give Laxis 40mg IV x1. patient will be seen by his orthopedic and further recommendation to follow. 10/13 today patient stats he is feeling better and not as short of breath and denies any CP, currently working with PT, chest x-ray shows resolution however seen by Dr. Liang, still has air leak, recommended to continue chest tube to suction today and reassess tomorrow. will continue to monitor and plan. (2) Essential (primary) hypertension: Code(s): I10 - Essential (primary) hypertension Status: Acute Assessment and Plan: will monitor (3) Knee pain: Code(s): M25.569 - Pain in unspecified knee Status: Acute Assessment and Plan: Plan is above Subjective Date/time seen: 10/13/20 12:18 10/10 Pablo Isaac is a 84 year old male with history of hypertension cardiac murmur for which patient had echo which was essentially normal with ejection fraction of 65% and no significant valvular stenosis, patient with severe osteoarthritis of the right knee had right knee total arthroplasty, surgery was uncomplicated however after the surgery patient felt left-sided chest pain and described as a pressure I receive a call from anesthesiologist and we were consulted for further management, from OR first trope was ordered and it was negative and there were no acute changes on EKG. Patient currently sitting in the chair, patient is still complains of left-sided chest pain with deep breath and pain is not reproducible, so far 2 sets of cardiac enzymes are negative will follow-up on the however patient is clinically stable does not appear to be in acute coronary syndrome, does complaint of right hip and knee pain which is chronic and statu
[2020-10-13] MEDS: oxyCODONE HCL (*CRX) 5 MG TAB IR PO (14:51)
--- NOTE | 2020-10-13 15:37 | PC.NURSE ---
On 10/13/20, the student, [Little Jean ], provided care and [facility] I have reviewed the student's documentation and agree with the findings.
--- NOTE | 2020-10-13 15:41 | PC.NURSE ---
On 10/13/20, the student, [ Little Jean], provided care and completed [facility]. I have reviewed the student's documentation and agree with the findings.
[2020-10-13] MEDS: DOXAZOSIN MESYLATE 4 MG TABLET 8 MG PO (17:06)
[2020-10-13 17:31] LABS: Hematocrit 39.8 % (42.0-52.0); Hemoglobin 13.7 g/dL (14.0-18.0); Mean Corpuscular HGB Conc 34.4 g/dl (32-36); Mean Corpuscular Hemoglobin 33.3 pg (26-34); Mean Corpuscular Volume 96.6 fl (80-100); Mean Platelet Volume 10.5 fl (7.4-10.4); Platelet Count Result 177 k/mm3 (150-375); Red Blood Count 4.12 M/mm3 (4.6-6.20); Red Cell Distribution Width 12.7 % (11.5-14.5); White Blood Count 14.3 K/mm3 (4.5-10.0)
[2020-10-14] VITALS (10 sets, daily range): BP systolic 130–167; BP diastolic 54–77; PULSE 98–101; RESP 18–22; TEMP 36.2–36.9; O2SAT 91–98
[2020-10-14 05:48] LABS: Anion Gap 4 mmol/L (8-16); Blood Urea Nitrogen 38 mg/dL (9-20); Calcium 8.9 mg/dL (8.4-10.2); Carbon Dioxide 29 mmol/L (22-30); Chloride 98 mmol/L (98-107); Estimated CRCL calculation 34 ml/min; Estimated Glomerular Filt Rate 36; Glucose 112 mg/dL (75-110); Sodium 131 mmol/L (137-145)
[2020-10-14] MEDS: ACETAMINOPHEN 500 MG TABLET 1000 MG PO ×3 (06:03→22:04)
--- NOTE | 2020-10-14 07:18 | PM.PNGS ---
Progress Note: A&P Assessment and Plan (1) Pneumothorax, left: Code(s): J93.9 - Pneumothorax, unspecified Status: Acute Assessment and Plan: Pleural leak appears to have resolved. Will place chest tube to water seal. If leak remains resolved and chest x-ray looks good tomorrow, chest tube can be removed tomorrow. (2) History of hip replacement: Qualifiers: Laterality: right Qualified Code(s): Z96.641 - Presence of right artificial hip joint Code(s): Z96.649 - Presence of unspecified artificial hip joint Status: Acute Subjective Subjective Date/Time Seen: 10/14/20 07:18 Post Op day: 3 (Left chest tube placed 10/11/2020) Patient reports: feels better (Feels a little better each day), pain is less, afebrile and other (Breathing continues to improve) Review of Systems Review of Systems: All systems reviewed & are unremarkable except as noted in HPI and below Constitutional: Constitutional: Denies headache(s) Cardiovascular: Cardiovascular: Denies chest pain and Denies dyspnea Respiratory: Respiratory: Denies cough and Denies dyspnea Neurologic: Denies confusion and Denies headache(s) Exam Const: General: comfortable and no acute distress; No confusion Orientation/consciousness: patient oriented x3 and No confusion Resp: Effort & Inspection: normal respiratory effort, able to speak in complete sentences, no cough and other (No pleural leak this morning) Auscultation: clear to auscultation bilaterally Neuro: General: patient oriented x3, no focal motor deficits and No confusion Extrem: General: no calf tenderness and no edema Psych: Affect: normal affect Insight: Good insight present (Psych) Judgement: Good judgement present (Psych) Objective Data Vital Signs Vital Signs: Vital Signs - 24 hr 10/13/20 08:10 10/13/20 10:35 10/13/20 12:12 Temperature 36.4 C Pulse Rate 102 H 102 H Respiratory Rate 22 H 22 H Blood Pressure 128/69 Pulse Oximetry 96 95 95 10/13/20 14:20 10/13/20 15:00 10/13/20 16:22 Temperature 36.6 C 36.6 C Pulse Rate 107 H 107 H Respiratory Rate 22 H 22 H Blood Pressure 127/77 127/77 Pulse Oximetry 95 95 95 10/13/20 18:00 10/13/20 20:00 10/13/20 22:00 Temperature 36.6 C 36.3 C L Pulse Rate 98 101 H Respiratory Rate 22 H 18 Blood Pressure 134/73 123/69 Pulse Oximetry 96 97 96 10/14/20 02:00 Temperature 36.3 C L Pulse Rate 98 Respiratory Rate 18 Blood Pressure 130/70 Pulse Oximetry 97 Intake/Output Intake/Output: Intake & Output 10/11/20 10/12/20 10/13/20 10/14/20 23:59 23:59 23:59 23:59 Intake Total 1610 1280 1120 50 Output Total 950 1000 160 Balance 660 280 960 50 Meds/Results Medications: Active Medications Generic Name Dose Route Start Last Admin Trade Name Freq PRN Reason Stop Dose Admin Acetaminophen 1,000 mg 10/10/20 14:00 10/14/20 06:03 Acetaminophen 500 Mg Tablet PO 1,000 mg Q8H MAIKEL Administration Calcium Carbonate 500 mg 10/11/20 09:00 10/13/20 10:00 Calcium Carbonate (Oscal) 500 Mg Tablet PO 500 mg QAM MAIKEL Administration Docusate Sodium 100 mg 10/10/20 17:00 10/13/20 17:06 Docusate Sodium 100 Mg Capsule PO 100 mg BID MAIKEL Administration Doxazosin Mesylate 8 mg 10/10/20 18:00 10/13/20 17:06 Doxazosin Mesylate 4 Mg Tablet PO 8 mg QPM MAIKEL Administration Famotidine 20 mg 10/10/20 21:00 10/13/20 20:06 Famotidine 20 Mg Tablet PO 20 mg Q12HR MAIKEL Administration Hydroxyzine HCl 50 mg 10/10/20 12:09 Hydroxyzine Hcl 25 Mg Tablet PO Q4H PRN Itching Cefazolin Sodium 1 gm in 50 mls @ 100 mls/hr 10/11/20 17:00 10/14/20 01:28 Ancef 1 Gm/D5w 50 Ml Pm IVPB Infused Q8H MAIKEL Infusion Magnesium Hydroxide 30 ml 10/10/20 12:09 10/13/20 10:00 Magnesium Hydroxide Susp 30 Ml Udc PO 30 ml BID PRN Administration Constipation Morphine Sulfate 1 mg 10/11/20 16:52 Morphine Sulfate (*Crx) 2 Mg/Ml Inj I
--- NOTE | 2020-10-14 07:35 | PC.NURSE ---
Filter Changing Technician placed pt on water seal per MD orders, Radiology notified.
--- NOTE | 2020-10-14 08:02 | PM.PNORT ---
Progress Note: A&P Assessment and Plan (1) History of hip replacement: Qualifiers: Laterality: right Qualified Code(s): Z96.641 - Presence of right artificial hip joint Code(s): Z96.649 - Presence of unspecified artificial hip joint Status: Acute (2) Pneumothorax, left: Code(s): J93.9 - Pneumothorax, unspecified Status: Acute Assessment and Plan: 84-year-old male four days out right hip replacement. Day three of chest tube placement. Dr. rodriguez note indicates water-seal today possibly removal of chest tube tomorrow. Would anticipate being able to go to SNF on Saturday then. Appreciate input from all services. Time Spent With Patient Time with patient: 15 - 25 minutes Subjective Subjective Date/Time Seen: 10/14/20 08:02 Post Op day: 4 (Status post right total hip replacement) Principal diagnosis: Left pneumothorax Interval history: This document created with [id number] technology and is subject to venetian blind cleaner and repairer irregularities. 84-year-old male who is postop day for right total hip replacement. No issues regarding the hip. Very little chest discomfort and no breathing difficulties noted. Review of Systems Constitutional: Constitutional: Denies chills and Denies fever(s) Eyes: Eyes: Reports no additional eye complaints ENT: Reports system reviewed and no additional complaints, except as documented Cardiovascular: Cardiovascular: Denies chest pain and Denies dyspnea on exertion Respiratory: Respiratory: Reports no additional respiratory complaints and Denies dyspnea on exertion Gastrointestinal: Gastrointestinal: Denies abdominal pain and Denies bloating Exam Const: General: cooperative, no acute distress and alert Nutritional Appearance: obese Orientation/consciousness: patient oriented x3 Limitations: no limitations HENMT: Head: normal to inspection Ears: hearing grossly normal bilaterally Face and sinus: face symmetric Mouth: Yes moist mucous membranes Teeth and gingiva: fair dentition Eyes: Alignment and Position: alignment normal and position normal Sclera: sclerae normal Neck: Neck: normal visual inspection and nontender Chest: Chest palpation & inspection: normal inspection of the chest Resp: Effort & Inspection: normal respiratory effort and able to speak in complete sentences GI: Inspection: other (Obese but nondistended and nontender) Skin: General skin exam: normal color Rashes: no rashes Neuro: General: patient oriented x3 Cognition (Neuro): normal cognition Speech: normal speech Sensory Exam: normal sensation Extrem: General: normal to inspection and other Other: Exam of right hip shows dry incision with no erythema and very little swelling. Grossly motor and sensory function intact to right lower extremity. Calves negative. Psych: Appearance: grossly normal Mental Status: mental status grossly normal Objective Data Vital Signs Vital Signs: Vital Signs - 24 hr 10/13/20 08:10 10/13/20 10:35 10/13/20 12:12 Temperature 97.6 F Pulse Rate 102 H 102 H Respiratory Rate 22 H 22 H Blood Pressure 128/69 Pulse Oximetry 96 95 95 10/13/20 14:20 10/13/20 15:00 10/13/20 16:22 Temperature 97.9 F 97.9 F Pulse Rate 107 H 107 H Respiratory Rate 22 H 22 H Blood Pressure 127/77 127/77 Pulse Oximetry 95 95 95 10/13/20 18:00 10/13/20 20:00 10/13/20 22:00 Temperature 97.8 F 97.3 F L Pulse Rate 98 101 H Respiratory Rate 22 H 18 Blood Pressure 134/73 123/69 Pulse Oximetry 96 97 96 10/14/20 02:00 10/14/20 06:00 Temperature 97.4 F L 97.1 F L Pulse Rate 98 101 H Respiratory Rate 18 18 Blood Pressure 130/70 139/77 Pulse Oximetry 97 96 Intake/Output Intake/Output: Intake & Output 10/11/20 10/12/20 10/13/20 10/14/20 23:59 23:59 23:59 23:59 Intake Total 1610 / 1610 1280 / 1280 1120 / 1120 700 / 700 Output Total 950 / 950 1000 / 1000 160 / 160 Balance 660 / 660 280 / 280 960 / 960 700 / 700 Meds/Results M
[2020-10-14] MEDS: CALCIUM CARBONATE (OSCAL) 500 MG TABLET PO (09:10)
[2020-10-14] MEDS: RIVAROXABAN 10 MG TABLET PO (09:11)
[2020-10-14] MEDS: CHOLECALCIFEROL 1,000 UNITS TABLET 1000 UNITS PO (09:11)
[2020-10-14] MEDS: FAMOTIDINE 20 MG TABLET PO ×2 (09:11→20:06)
[2020-10-14] MEDS: DOCUSATE SODIUM 100 MG CAPSULE PO ×2 (09:25→17:03)
[2020-10-14] MEDS: polyethylene glycoL 3350 17 GM POWD.PACK PO (09:30)
--- NOTE | 2020-10-14 09:49 | PC.NURSE ---
0900 Met[employer] Yarn Slitting Machine Operator callled Dr. Liang regarding X-ray results. MD report keep on water seal and recheck chest-x ray at 1400
--- NOTE | 2020-10-14 14:31 | PC.NURSE ---
Pants Busheler spoke with Fredo regarding pt c/o unable to void, racebook writer bladder scanned pt and showed 600ml Dr. Yoo reports to place order to consult urology
--- NOTE | 2020-10-14 14:57 | PC.NURSE ---
On 10/14/20, the student, [ Blayne Bonilla], provided care and completed [facility] documentation on this patient. I have reviewed the student's documentation and agree with the findings.
--- NOTE | 2020-10-14 15:00 | PC.NURSE ---
Clerk Travel Reservations called 1400 chest x-ray results to Dr. Liang.
--- NOTE | 2020-10-14 15:15 | PC.NURSE ---
Car Worker Helper spoke with Dr. Yoo who reports may give ditropan for retention, and st. Cath pt times one.
--- NOTE | 2020-10-14 15:37 | PM.IMPN ---
Progress Note: A&P Assessment and Plan (1) Chest pain: Code(s): R07.9 - Chest pain, unspecified Status: Acute Assessment and Plan: 10/14/20 15:37 10/10 Pablo Isaac is a 84 year old male with history of hypertension cardiac murmur for which patient had echo which was essentially normal with ejection fraction of 65% and no significant valvular stenosis, patient with severe osteoarthritis of the right knee had right knee total arthroplasty, surgery was uncomplicated however after the surgery patient felt left-sided chest pain and described as a pressure I receive a call from anesthesiologist and we were consulted for further management, from OR first trope was ordered and it was negative and there were no acute changes on EKG. Patient currently sitting in the chair, patient is still complains of left-sided chest pain with deep breath and pain is not reproducible, so far 2 sets of cardiac enzymes are negative will follow-up on the however patient is clinically stable does not appear to be in acute coronary syndrome, does complaint of right hip and knee pain which is chronic and status post right knee total arthroplasty. Patient is present in the room. 10/11 today patient lying in the bed chest pain has resolved patient 3 sets of cardiac enzymes are negative unlikely coronary artery syndrome most likely secondary to mechanical support placed on the left side to to prevent injury to left brachial plexus, did participate in physical therapy, discussed with orthopedic surgeon will monitor patient overnight and continue physical therapy, patient will benefit going to rehab before going home. 10/12, late afternoon pm 10/11 patient left sided chest patient was getting worse and he was short of breath, to further evaluate patient had CXR, received the call from radiologist that patient has a large left sided pneumothorax, I called Dr. Liang and Dr Liang came and place a chest tube and repeat chest x-ray showed resolution of the pneumothorax, this morning patient was seen by Garth, repeat chest x-ray showed small apical pneumo, patient chest tube continous suction, will continue to monitor and further recommendation to follow, chest x-ray is concerning for pulmonary congestion will give Laxis 40mg IV x1. patient will be seen by his orthopedic and further recommendation to follow. 10/13 today patient stats he is feeling better and not as short of breath and denies any CP, currently working with PT, chest x-ray shows resolution however seen by Dr. Liang, still has air leak, recommended to continue chest tube to suction today and reassess tomorrow. will continue to monitor 10/14 today patient stats he is feeling better and not as short of breath and denies any CP, currently working with PT, patient was seen by Dr. Liang, air leak has resolved and chest tube placed on water seal, will reassess tomorrow if leaks remain resolved and patient is clinically stable, will remove the tube, patient is having significant urinary retention, 600ml in bladder will do straight cath and consult urologist for further recommendation. (2) Essential (primary) hypertension: Code(s): I10 - Essential (primary) hypertension Status: Acute Assessment and Plan: will monitor (3) Knee pain: Code(s): M25.569 - Pain in unspecified knee Status: Acute Assessment and Plan: Plan is above Subjective Date/time seen: 10/14/20 15:37 10/10 Pablo Isaac is a 84 year old male with history of hypertension cardiac murmur for which patient had echo which was essentially normal with ejection fraction of 65% and no significant valvular stenosis, patient with severe osteoarthritis of the right knee had right knee total arthroplasty, surgery was uncomplicated however after the surgery patient felt left-sided chest pain and described as a pressure I receive a call from anesthesiologist and we were consulted for further management, from [facility]
--- NOTE | 2020-10-14 16:56 | WPDURCON ---
Assessment and Plan Assessment and plan (1) Urinary retention: Code(s): R33.9 - Retention of urine, unspecified Status: Acute Assessment and Plan: Place 16fr walker catheter and keep in for 7-10 days likely secondary to anesthesia. He is unable to perform CIC. Stop Oxybutynin. No further evaluation needed. Follow up in the office in 7-10 days for a voiding trial. (2) Acute kidney injury: Code(s): N17.9 - Acute kidney failure, unspecified Status: Acute Assessment and Plan: Secondary to retention, will continue to monitor, but will likely resolve after catheter placement. Urology Consult Note HPI Date Seen: 10/14/20 Requesting Physician: Omer Leger MD Primary Care Provider: Gonzalez Braxton MD Consult Narrative Narrative: Pablo Isaac is a 84 year old male who initially had a right total hip replacement on 10/10/2020, then a left chest tube placement on 10/11/2020. He is on Oxybutynin for incontinence and urgency s/p prostatectomy in 2012. He is also on doxazosin. The patient states he has struggled with OAB symptoms for years and only takes Oxybutynin when his symptoms are worse but not daily. He denies dysuria, hematuria, flank pain, abdominal pain, nausea or vomiting. He was straight catheterized d/t inability to empty his bladder and 600cc were noted on return. The patient is not a candidate for CIC d/t limited dexterity. His WBC is elevated at 14.3 and creatinine has increased since admission, it is now 1.80 and was 0.80 three days ago. He has not had a UA done. Review of Systems Cardiovascular: Cardiovascular: Denies chest pain Respiratory: Respiratory: Reports no additional respiratory complaints Gastrointestinal: Gastrointestinal: Denies abdominal pain, Denies nausea and Denies vomiting Genitourinary: Genitourinary: Denies hematuria, Denies dysuria, Denies flank pain, Reports urinary frequency, Reports urinary hesitancy and Reports urinary urgency PMFSH Past Medical History Medical History Aortic regurgitation mild - moderate Cataracts, bilateral Essential (primary) hypertension History of cancer prostate 2010 Osteoarthritis of right hip Surgical History Surgical History H/O cataract extraction H/O hemorrhoidectomy H/O hernia repair H/O prostatectomy History of appendectomy History of hip replacement Right YOSI September 30, 2020 History of knee replacement Hx of tonsillectomy Family History Family History Grandparent Family history of mental disorder Family history of sudden Father Hypertension Family history of malignant neoplasm of stomach Family history of primary malignant neoplasm of liver Social History Social History Smoking status: Never smoker Additional smoking assessment comments: DENIES ANY FORM OF TOBACCO USE Alcohol intake: never Substance use: never Substance use type: does not use Living arrangements: with family Spiritual care concerns: No Meds Home Medications and Allergies Home Medications Medication Instructions Recorded Confirmed Type oxybutynin chloride 10 mg 10 mg PO PRN PRN 07/08/19 10/10/20 History tablet,extended release 24 hr aspirin 81 mg tablet,delayed 81 mg PO QNOON 08/26/19 10/10/20 History release calcium carbonate 600 mg calcium 600 mg PO DAILY 01/22/20 10/10/20 History (1,500 mg) tablet carboxymethylcellulose sodium 0.5 2 drop EACH EYE DAILY ml 01/22/20 10/10/20 History % eye drops ibuprofen 200 mg tablet 600 mg PO BID PRN tablet 01/22/20 10/10/20 History naproxen sodium 220 mg capsule 440 mg PO BID PRN cap 01/22/20 10/10/20 History polyethylene glycol 3350 17 17 gm PO PRN PRN 01/22/20 10/04/20 History gram/dose oral powder vit C 250 mg-vit E
[2020-10-14] MEDS: DOXAZOSIN MESYLATE 4 MG TABLET 8 MG PO (17:03)
[2020-10-14] MEDS: MAGNESIUM HYDROXIDE SUSP 30 ML UDC PO (17:04)
[2020-10-14 17:42] LABS: Hematocrit 37.6 % (42.0-52.0); Hemoglobin 12.9 g/dL (14.0-18.0); Mean Corpuscular HGB Conc 34.3 g/dl (32-36); Mean Corpuscular Volume 96.2 fl (80-100); Mean Platelet Volume 10.5 fl (7.4-10.4); Platelet Count Result 184 k/mm3 (150-375); Red Blood Count 3.91 M/mm3 (4.6-6.20); Red Cell Distribution Width 12.8 % (11.5-14.5); White Blood Count 15.6 K/mm3 (4.5-10.0)
[2020-10-15] MEDS: ACETAMINOPHEN 500 MG TABLET 1000 MG PO ×3 (05:20→21:36)
[2020-10-15 06:00] VITALS: BP 138/68; PULSE 92; RESP 20; TEMP 36.9; O2SAT 95
[2020-10-15 08:17] VITALS: O2SAT 91
--- NOTE | 2020-10-15 08:29 | PM.PNORT ---
Progress Note: A&P Assessment and Plan (1) History of hip replacement: Qualifiers: Laterality: right Qualified Code(s): Z96.641 - Presence of right artificial hip joint Code(s): Z96.649 - Presence of unspecified artificial hip joint Status: Acute (2) Pneumothorax, left: Code(s): J93.9 - Pneumothorax, unspecified Status: Acute (3) Urinary retention: Code(s): R33.9 - Retention of urine, unspecified Status: Acute Assessment and Plan: 84-year-old male postop day five right hip replacement. Regarding hip he is doing fine. Question of pneumonia on chest x-ray. Discussed with Dr. Peterson. He is going to change the antibiotics. Urinary retention noted as well the plan. Possible chest tube removal today per General surgery. Continue with PT/OT. Discussed with patient. Subjective Subjective Date/Time Seen: 10/15/20 08:29 Post Op day: 5 Principal diagnosis: Right total hip replacement Interval history: This document created with [id number] technology and is subject to sawmill or timber yard worker irregularities. 84-year-old male postop day five right total hip replacement. Regarding the pneumothorax he is really not having any breathing difficulty. He is having very little in the way of right hip discomfort at this point and tolerating the little bit therapy that he is getting. Review of Systems Constitutional: Constitutional: Denies chills and Denies fever(s) Eyes: Eyes: Reports no additional eye complaints ENT: Reports system reviewed and no additional complaints, except as documented Cardiovascular: Cardiovascular: Denies chest pain Respiratory: Respiratory: Reports no additional respiratory complaints Gastrointestinal: Gastrointestinal: Denies abdominal pain and Denies bloating Exam Const: General: cooperative, no acute distress and alert Nutritional Appearance: obese Orientation/consciousness: patient oriented x3 Limitations: no limitations HENMT: Head: normal to inspection Ears: hearing grossly normal bilaterally Face and sinus: face symmetric Mouth: Yes moist mucous membranes Teeth and gingiva: fair dentition Eyes: Alignment and Position: alignment normal and position normal Sclera: sclerae normal Neck: Neck: normal visual inspection and nontender Chest: Chest palpation & inspection: normal inspection of the chest Resp: Effort & Inspection: normal respiratory effort and able to speak in complete sentences GI: Inspection: other (Nontender, nondistended) Skin: General skin exam: normal color Rashes: no rashes Neuro: General: patient oriented x3 Cognition (Neuro): normal cognition Speech: normal speech Sensory Exam: normal sensation Extrem: General: normal to inspection and other Other: Exam of the right hip shows dry dressing, no erythema and very little swelling. Motor and sensory function right lower extremity grossly intact. Calves negative. Psych: Appearance: grossly normal Mental Status: mental status grossly normal Objective Data Vital Signs Vital Signs: Vital Signs - 24 hr 10/14/20 09:03 10/14/20 12:52 10/14/20 20:00 Temperature 98 F Pulse Rate 98 Respiratory Rate 22 H Blood Pressure 167/54 H Pulse Oximetry 91 98 95 10/14/20 20:28 10/14/20 22:00 10/15/20 06:00 Temperature 98.3 F 98.4 F Pulse Rate 101 H 98 92 Respiratory Rate 22 H 20 Blood Pressure 139/62 138/68 Pulse Oximetry 91 94 95 10/15/20 08:17 Temperature Pulse Rate Respiratory Rate Blood Pressure Pulse Oximetry 91 Intake/Output Intake/Output: Intake & Output 10/12/20 10/13/20 10/14/20 10/15/20 23:59 23:59 23:59 23:59 Intake Total 1280 / 1280 1120 / 1120 1880 / 1880 715 / 715 Output Total 1000 / 1000 1060 / 1060 30 / 30 2049 / 2049 Balance 280 / 280 60 / 60 1850 / 1850 -1335 / -1335 Meds/Results Medications: Active Medications Generic Name Dose Route Start Last Admin Trade Name Freq PRN Reason Stop Dose Admin Acetaminoph
[2020-10-15] MEDS: FAMOTIDINE 20 MG TABLET PO ×2 (08:54→21:36)
[2020-10-15] MEDS: CALCIUM CARBONATE (OSCAL) 500 MG TABLET PO (08:54)
[2020-10-15] MEDS: CHOLECALCIFEROL 1,000 UNITS TABLET 1000 UNITS PO (08:55)
[2020-10-15] MEDS: RIVAROXABAN 10 MG TABLET PO (08:55)
[2020-10-15 08:56] VITALS: RESP 20; O2SAT 91
[2020-10-15] MEDS: DOCUSATE SODIUM 100 MG CAPSULE PO ×2 (08:56→16:46)
--- NOTE | 2020-10-15 09:37 | PM.PNGS ---
Progress Note: A&P Assessment and Plan (1) Pneumothorax, left: Code(s): J93.9 - Pneumothorax, unspecified Status: Acute Assessment and Plan: still c small air leak and small apical PTX on CXR, will leave to water seal and recheck XR in am (2) History of hip replacement: Qualifiers: Laterality: right Qualified Code(s): Z96.641 - Presence of right artificial hip joint Code(s): Z96.649 - Presence of unspecified artificial hip joint Status: Acute Assessment and Plan: stable, mgmt per ortho (3) Acute kidney injury: Code(s): N17.9 - Acute kidney failure, unspecified Status: Acute Assessment and Plan: will recheck renal fxn this am, if worsening will get nephrology cx Subjective Subjective Date/Time Seen: 10/15/20 09:37 no acute issues overnight, denies any worsening SOB Review of Systems Review of Systems: All systems reviewed & are unremarkable except as noted in HPI and below Exam Const: General: cooperative, comfortable and no acute distress Nutritional Appearance: obese Orientation/consciousness: patient oriented x3 Limitations: no limitations Chest: Chest palpation & inspection: normal inspection of the chest Other: L CT - still c small air leak Resp: Effort & Inspection: normal respiratory effort and able to speak in complete sentences Auscultation: diminished lung sounds Cardio: Rate: regular rate Rhythm: regular rhythm GI: Inspection: normal to inspection and non-distended GI Palp: Yes Soft to palpation Objective Data Vital Signs Vital Signs: Vital Signs - 24 hr 10/14/20 12:52 10/14/20 20:00 10/14/20 20:28 Temperature 36.6 C Pulse Rate 98 101 H Respiratory Rate 22 H Blood Pressure 167/54 H Pulse Oximetry 98 95 91 10/14/20 22:00 10/15/20 06:00 10/15/20 08:17 Temperature 36.8 C 36.9 C Pulse Rate 98 92 Respiratory Rate 22 H 20 Blood Pressure 139/62 138/68 Pulse Oximetry 94 95 91 Intake/Output Intake/Output: Intake & Output 10/12/20 10/13/20 10/14/20 10/15/20 23:59 23:59 23:59 23:59 Intake Total 1280 1120 1880 715 Output Total 1000 1060 30 2050 Balance 170 22 6950 -1335 Meds/Results Medications: Active Medications Generic Name Dose Route Start Last Admin Trade Name Freq PRN Reason Stop Dose Admin Acetaminophen 1,000 mg 10/10/20 14:00 10/15/20 05:20 Acetaminophen 500 Mg Tablet PO 1,000 mg Q8H MAIKEL Administration Calcium Carbonate 500 mg 10/11/20 09:00 10/15/20 08:54 Calcium Carbonate (Oscal) 500 Mg Tablet PO 500 mg QAM MAIKEL Administration Docusate Sodium 100 mg 10/10/20 17:00 10/15/20 08:56 Docusate Sodium 100 Mg Capsule PO 100 mg BID MAIKEL Administration Doxazosin Mesylate 8 mg 10/10/20 18:00 10/14/20 17:03 Doxazosin Mesylate 4 Mg Tablet PO 8 mg QPM MAIKEL Administration Famotidine 20 mg 10/10/20 21:00 10/15/20 08:54 Famotidine 20 Mg Tablet PO 20 mg Q12HR MAIKEL Administration Hydroxyzine HCl 50 mg 10/10/20 12:09 Hydroxyzine Hcl 25 Mg Tablet PO Q4H PRN Itching Doxycycline Hyclate 100 mg in 100 mls @ 100 mls/hr 10/15/20 09:00 Vibramycin 100 Mg/D5w 100 Ml IVPB Q12H MAIKEL Magnesium Hydroxide 30 ml 10/10/20 12:09 10/14/20 17:04 Magnesium Hydroxide Susp 30 Ml Udc PO 30 ml BID PRN Administration Constipation Morphine Sulfate 1 mg 10/11/20 16:52 Morphine Sulfate (*Crx) 2 Mg/Ml Inj IV PUSH Q2H PRN Pain Rated 4-6 Morphine Sulfate 2 mg 10/11/20 16:55 Morphine Sulfate (*Crx) 2 Mg/Ml Inj IV PUSH Q2H PRN Pain Rated 7-10 Naloxone HCl 0.1 mg 10/10/20 12:09 Naloxone Hcl 0.4 Mg/Ml Vial IV PUSH Q2M PRN Opiate Reversal Ondansetron HCl 4 mg 10/10/20 12:09 Ondansetron Inj 4 Mg/2 Ml Vial IV PUSH Q4H PRN Nausea And Vomiting Oxycodone HCl 5 mg 10/10/20 12:09 10/13/20 14:51 Oxycodone Hcl (*Crx) 5 Mg Tab Ir PO 5 mg Q4H PRN Administration Pa
[2020-10-15 10:17] LABS: Anion Gap 5 mmol/L (8-16); Blood Urea Nitrogen 33 mg/dL (9-20); Calcium 8.5 mg/dL (8.4-10.2); Carbon Dioxide 27 mmol/L (22-30); Chloride 99 mmol/L (98-107); Estimated CRCL calculation 50 ml/min; Estimated Glomerular Filt Rate 58; Glucose 143 mg/dL (75-110); Potassium 4.3 mmol/L (3.4-5.0); Sodium 131 mmol/L (137-145)
[2020-10-15] MEDS: MAGNESIUM HYDROXIDE SUSP 30 ML UDC PO (13:30)
[2020-10-15 14:00] VITALS: BP 133/65; PULSE 91; RESP 18; TEMP 36.9; O2SAT 97
--- NOTE | 2020-10-15 14:15 | PM.IMPN ---
Progress Note: A&P Assessment and Plan (1) Chest pain: Code(s): R07.9 - Chest pain, unspecified Status: Acute Assessment and Plan: 10/15/20 14:15 10/10 Pablo Isaac is a 84 year old male with history of hypertension cardiac murmur for which patient had echo which was essentially normal with ejection fraction of 65% and no significant valvular stenosis, patient with severe osteoarthritis of the right knee had right knee total arthroplasty, surgery was uncomplicated however after the surgery patient felt left-sided chest pain and described as a pressure I receive a call from anesthesiologist and we were consulted for further management, from OR first trope was ordered and it was negative and there were no acute changes on EKG. Patient currently sitting in the chair, patient is still complains of left-sided chest pain with deep breath and pain is not reproducible, so far 2 sets of cardiac enzymes are negative will follow-up on the however patient is clinically stable does not appear to be in acute coronary syndrome, does complaint of right hip and knee pain which is chronic and status post right knee total arthroplasty. Patient is present in the room. 10/11 today patient lying in the bed chest pain has resolved patient 3 sets of cardiac enzymes are negative unlikely coronary artery syndrome most likely secondary to mechanical support placed on the left side to to prevent injury to left brachial plexus, did participate in physical therapy, discussed with orthopedic surgeon will monitor patient overnight and continue physical therapy, patient will benefit going to rehab before going home. 10/12, late afternoon pm 10/11 patient left sided chest patient was getting worse and he was short of breath, to further evaluate patient had CXR, received the call from radiologist that patient has a large left sided pneumothorax, I called Dr. Liang and Dr Liang came and place a chest tube and repeat chest x-ray showed resolution of the pneumothorax, this morning patient was seen by Garth, repeat chest x-ray showed small apical pneumo, patient chest tube continous suction, will continue to monitor and further recommendation to follow, chest x-ray is concerning for pulmonary congestion will give Laxis 40mg IV x1. patient will be seen by his orthopedic and further recommendation to follow. 10/13 today patient stats he is feeling better and not as short of breath and denies any CP, currently working with PT, chest x-ray shows resolution however seen by Dr. Liang, still has air leak, recommended to continue chest tube to suction today and reassess tomorrow. will continue to monitor 10/14 today patient stats he is feeling better and not as short of breath and denies any CP, currently working with PT, patient was seen by Dr. Liang, air leak has resolved and chest tube placed on water seal, will reassess tomorrow if leaks remain resolved and patient is clinically stable, will remove the tube, patient is having significant urinary retention, 600ml in bladder will do straight cath and consult urologist for further recommendation. 10/15 today repeat x-ray shows improvement in pneumothorax however developed pneumonia however clinically patient does not have significant complaint of cough shortness of breath fever or chills, will start the patient on Zosyn and doxycycline, encourage patient to use inspirometer, patient was seen by his surgeon recommending to monitor 1 more day with chest tube, will continue present management and further recommendation to follow (2) Essential (primary) hypertension: Code(s): I10 - Essential (primary) hypertension Status: Acute Assessment and Plan: will monitor (3) Knee pain: Code(s): M25.569 - Pain in unspecified knee Status: Acute Assessment and Plan: Plan is above Subjective Date/time seen: 10/15/20 14:15 10/10 aPblo Isaac is a 84 year old male with history of hypertension
[2020-10-15] MEDS: DOXAZOSIN MESYLATE 4 MG TABLET 8 MG PO (17:27)
[2020-10-16] VITALS (8 sets, daily range): BP systolic 131–143; BP diastolic 58–62; PULSE 90–95; RESP 18; TEMP 36.6–36.7; O2SAT 93–97
[2020-10-16 05:47] LABS: Potassium 4.4 mmol/L (3.4-5.0)
[2020-10-16 06:09] LABS: Anion Gap -3 mmol/L (8-16); Blood Urea Nitrogen 27 mg/dL (9-20); Calcium 8.3 mg/dL (8.4-10.2); Carbon Dioxide 31 mmol/L (22-30); Chloride 101 mmol/L (98-107); Estimated CRCL calculation 60 ml/min; Estimated Glomerular Filt Rate > 60; Glucose 95 mg/dL (75-110); Sodium 129 mmol/L (137-145)
[2020-10-16] MEDS: ACETAMINOPHEN 500 MG TABLET 1000 MG PO ×3 (06:10→22:06)
--- NOTE | 2020-10-16 07:21 | PM.PNORT ---
Progress Note: A&P Assessment and Plan (1) Urinary retention: Code(s): R33.9 - Retention of urine, unspecified Status: Acute (2) History of hip replacement: Qualifiers: Laterality: right Qualified Code(s): Z96.641 - Presence of right artificial hip joint Code(s): Z96.649 - Presence of unspecified artificial hip joint Status: Acute (3) Pneumothorax, left: Code(s): J93.9 - Pneumothorax, unspecified Status: Acute Assessment and Plan: 84-year-old male postop day six right hip replacement. The hip is doing well. Possibly to get the chest tube out today. Being treated for a bilateral lower lobe pneumonia. Continue deep breathing encouraged. Will check with urology to see of voiding trial could be done prior to his discharge from hospital. Xarelto for DVT prophylaxis. Subjective Subjective Date/Time Seen: 10/16/20 07:21 Post Op day: POD 6 Principal diagnosis: Right total hip replacement Interval history: This document created with [id number] technology and is subject to fraud investigator irregularities. A 4-year-old male postop day six right total hip replacement. Having no issues with his hip. Chest do not remove yesterday because a small apical residual pneumo. No breathing difficulties. Understandably a little bit frustrated about the situation but understands the need for thoroughness and be safe. Has Rice catheter in due to urinary retention. Review of Systems Constitutional: Constitutional: Denies chills and Denies fever(s) Eyes: Eyes: Reports no additional eye complaints ENT: Reports system reviewed and no additional complaints, except as documented Cardiovascular: Cardiovascular: Denies chest pain and Denies dyspnea on exertion Respiratory: Respiratory: Reports no additional respiratory complaints and Denies dyspnea on exertion Gastrointestinal: Gastrointestinal: Denies abdominal pain and Denies bloating Exam Const: General: cooperative, no acute distress and alert Nutritional Appearance: other Orientation/consciousness: patient oriented x3 Limitations: no limitations HENMT: Head: normal to inspection Ears: hearing grossly normal bilaterally Face and sinus: face symmetric Mouth: Yes moist mucous membranes Teeth and gingiva: fair dentition Eyes: Alignment and Position: alignment normal and position normal Sclera: sclerae normal Neck: Neck: normal visual inspection and nontender Chest: Chest palpation & inspection: normal inspection of the chest Resp: Effort & Inspection: normal respiratory effort and able to speak in complete sentences GI: Inspection: other (Nontender, nondistended) Skin: General skin exam: normal color Rashes: no rashes Neuro: General: patient oriented x3 Cognition (Neuro): normal cognition Speech: normal speech Gait exam (Neuro): Other gait observations present Motor exam (neuro): 5/5 motor strength present throughout (Extremities) Sensory Exam: normal sensation (Right lower extremity) Extrem: General: normal to inspection and other Other: Exam of right hip wound shows it to be dry, non erythematous and very little swelling. Healing well. Psych: Appearance: grossly normal Mental Status: mental status grossly normal Objective Data Vital Signs Vital Signs: Vital Signs - 24 hr 10/15/20 08:17 10/15/20 08:56 10/15/20 14:00 Temperature 98.5 F Pulse Rate 91 Respiratory Rate 20 18 Blood Pressure 133/65 Pulse Oximetry 91 91 97 10/16/20 00:36 Temperature Pulse Rate Respiratory Rate Blood Pressure Pulse Oximetry 93 Intake/Output Intake/Output: Intake & Output 10/13/20 10/14/20 10/15/20 10/16/20 23:59 23:59 23:59 23:59 Intake Total 1120 / 1120 1880 / 1880 2445 / 2445 Output Total 1060 / 1060 30 / 30 3250 / 3250 650 / 650 Balance 60 / 60 1850 / 1850 -805 / -805 -650 / -650 Meds/Results Medications: Active Medications Generic Name Dose Route Start Last Admin Trade Name
[2020-10-16] MEDS: RIVAROXABAN 10 MG TABLET PO (09:47)
[2020-10-16] MEDS: FAMOTIDINE 20 MG TABLET PO ×2 (09:47→20:12)
[2020-10-16] MEDS: CALCIUM CARBONATE (OSCAL) 500 MG TABLET PO (09:47)
[2020-10-16] MEDS: CHOLECALCIFEROL 1,000 UNITS TABLET 1000 UNITS PO (09:47)
[2020-10-16] MEDS: DOCUSATE SODIUM 100 MG CAPSULE PO ×2 (09:56→17:35)
--- NOTE | 2020-10-16 12:18 | PM.PNGS ---
Progress Note: A&P Assessment and Plan (1) Pneumothorax, left: Code(s): J93.9 - Pneumothorax, unspecified Status: Acute Assessment and Plan: resolved, no leak on exam this am, CT removed at bedside (2) Acute kidney injury: Code(s): N17.9 - Acute kidney failure, unspecified Status: Acute Assessment and Plan: kidney fxn normalized Subjective Subjective Date/Time Seen: 10/16/20 12:18 feels good, no acute issues, no air leak today Review of Systems Review of Systems: All systems reviewed & are unremarkable except as noted in HPI and below Exam Const: General: cooperative, comfortable and no acute distress Resp: Effort & Inspection: normal respiratory effort Auscultation: diminished lung sounds Other: L CT removed, no air leak Cardio: Rate: regular rate Rhythm: regular rhythm GI: Inspection: normal to inspection and non-distended GI Palp: Yes Soft to palpation and No Tenderness to palpation present (GI) Objective Data Vital Signs Vital Signs: Vital Signs - 24 hr 10/15/20 14:00 10/16/20 00:36 10/16/20 09:48 Temperature 36.9 C Pulse Rate 91 Respiratory Rate 18 18 Blood Pressure 133/65 Pulse Oximetry 97 93 96 10/16/20 10:15 Temperature 36.6 C Pulse Rate 93 Respiratory Rate 18 Blood Pressure 131/58 L Pulse Oximetry 96 Intake/Output Intake/Output: Intake & Output 10/13/20 10/14/20 10/15/20 10/16/20 23:59 23:59 23:59 23:59 Intake Total 1120 1880 2445 340 Output Total 1060 30 3250 650 Balance 60 5120 -135 -310 Meds/Results Medications: Active Medications Generic Name Dose Route Start Last Admin Trade Name Freq PRN Reason Stop Dose Admin Acetaminophen 1,000 mg 10/10/20 14:00 10/16/20 06:10 Acetaminophen 500 Mg Tablet PO 1,000 mg Q8H MAIKEL Administration Calcium Carbonate 500 mg 10/11/20 09:00 10/16/20 09:47 Calcium Carbonate (Oscal) 500 Mg Tablet PO 500 mg QAM MAIKEL Administration Docusate Sodium 100 mg 10/10/20 17:00 10/16/20 09:56 Docusate Sodium 100 Mg Capsule PO 100 mg BID MAIKEL Administration Doxazosin Mesylate 8 mg 10/10/20 18:00 10/15/20 17:27 Doxazosin Mesylate 4 Mg Tablet PO 8 mg QPM MAIKEL Administration Famotidine 20 mg 10/10/20 21:00 10/16/20 09:47 Famotidine 20 Mg Tablet PO 20 mg Q12HR MAIKEL Administration Hydroxyzine HCl 50 mg 10/10/20 12:09 Hydroxyzine Hcl 25 Mg Tablet PO Q4H PRN Itching Doxycycline Hyclate 100 mg in 100 mls @ 100 mls/hr 10/15/20 09:00 10/16/20 10:48 Vibramycin 100 Mg/D5w 100 Ml IVPB Infused Q12H MAIKEL Infusion Magnesium Hydroxide 30 ml 10/10/20 12:09 10/15/20 13:30 Magnesium Hydroxide Susp 30 Ml Udc PO 30 ml BID PRN Administration Constipation Morphine Sulfate 1 mg 10/11/20 16:52 Morphine Sulfate (*Crx) 2 Mg/Ml Inj IV PUSH Q2H PRN Pain Rated 4-6 Morphine Sulfate 2 mg 10/11/20 16:55 Morphine Sulfate (*Crx) 2 Mg/Ml Inj IV PUSH Q2H PRN Pain Rated 7-10 Naloxone HCl 0.1 mg 10/10/20 12:09 Naloxone Hcl 0.4 Mg/Ml Vial IV PUSH Q2M PRN Opiate Reversal Ondansetron HCl 4 mg 10/10/20 12:09 Ondansetron Inj 4 Mg/2 Ml Vial IV PUSH Q4H PRN Nausea And Vomiting Oxycodone HCl 5 mg 10/10/20 12:09 10/13/20 14:51 Oxycodone Hcl (*Crx) 5 Mg Tab Ir PO 5 mg Q4H PRN Administration Pain Rated 4-6 Oxycodone HCl 10 mg 10/11/20 01:51 10/12/20 20:33 Oxycodone Hcl (*Crx) 5 Mg Tab Ir PO 10 mg Q4H PRN Administration Pain Rated 7-10 Polyethylene Glycol 17 gm 10/10/20 12:09 10/14/20 09:30 Polyethylene Glycol 3350 17 Gm Powd.Pack PO 17 gm PRN PRN Administration Constipation Rivaroxaban 10 mg 10/11/20 09:00 10/16/20 09:47 Rivaroxaban 10 Mg Tablet PO 11/14/20 09:01 10 mg QAM MAIKEL Administration Vitamin D 1,000 units 10/11/20 09:00 10/16/20 09:47 Cholecalciferol 1,000 Units Tablet PO 1,000 units DAILY MAIKEL Administration
--- NOTE | 2020-10-16 14:09 | P.PNIM_ITS ---
Progress Note: A&P Assessment and Plan (1) Chest pain: Code(s): R07.9 - Chest pain, unspecified Status: Acute Assessment and Plan: 10/16/20 14:09 10/10 Pablo Isaac is a 84 year old male with history of hypertension cardiac murmur for which patient had echo which was essentially normal with ejection fraction of 65% and no significant valvular stenosis, patient with severe osteoarthritis of the right knee had right knee total arthroplasty, surgery was uncomplicated however after the surgery patient felt left-sided chest pain and described as a pressure I receive a call from anesthesiologist and we were consulted for further management, from OR first trope was ordered and it was negative and there were no acute changes on EKG. Patient currently sitting in the chair, patient is still complains of left-sided chest pain with deep breath and pain is not reproducible, so far 2 sets of cardiac enzymes are negative will follow-up on the however patient is clinically stable does not appear to be in acute coronary syndrome, does complaint of right hip and knee pain which is chronic and status post right knee total arthroplasty. Patient is present in the room. 10/11 today patient lying in the bed chest pain has resolved patient 3 sets of cardiac enzymes are negative unlikely coronary artery syndrome most likely secondary to mechanical support placed on the left side to to prevent injury to left brachial plexus, did participate in physical therapy, discussed with orthopedic surgeon will monitor patient overnight and continue physical therapy, patient will benefit going to rehab before going home. 10/12, late afternoon pm 10/11 patient left sided chest patient was getting worse and he was short of breath, to further evaluate patient had CXR, received the call from radiologist that patient has a large left sided pneumothorax, I called Dr. Liang and Dr Liang came and place a chest tube and repeat chest x-ray showed resolution of the pneumothorax, this morning patient was seen by Garth, repeat chest x-ray showed small apical pneumo, patient chest tube continous suction, will continue to monitor and further recommendation to follow, chest x- ray is concerning for pulmonary congestion will give Laxis 40mg IV x1. patient will be seen by his orthopedic and further recommendation to follow. 10/13 today patient stats he is feeling better and not as short of breath and denies any CP, currently working with PT, chest x-ray shows resolution however seen by Dr. Liang, still has air leak, recommended to continue chest tube to suction today and reassess tomorrow. will continue to monitor 10/14 today patient stats he is feeling better and not as short of breath and denies any CP, currently working with PT, patient was seen by Dr. Liang, air leak has resolved and chest tube placed on water seal, will reassess tomorrow if leaks remain resolved and patient is clinically stable, will remove the tube, patient is having significant urinary retention, 600ml in bladder will do straight cath and consult urologist for further recommendation. 10/15 today repeat x-ray shows improvement in pneumothorax however developed pneumonia however clinically patient does not have significant complaint of cough shortness of breath fever or chills, will start the patient on Zosyn and doxycycline, encourage patient to use inspirometer, patient was seen by his surgeon recommending to monitor 1 more day with chest tube, will continue present management and further recommendation to follow. 10/16 today a chest x-ray shows near resolution of pneumothorax seen by surgery service and chest tube is removed, patient states is feeling much better, chest x-ray also showed mild persistent atel
[2020-10-16] MEDS: DOXAZOSIN MESYLATE 4 MG TABLET 8 MG PO (17:35)
[2020-10-17 02:00] VITALS: BP 142/70; PULSE 88; RESP 18; TEMP 36.4; O2SAT 97
[2020-10-17] MEDS: ACETAMINOPHEN 500 MG TABLET 1000 MG PO ×3 (05:50→21:58)
[2020-10-17 06:00] VITALS: BP 115/52; PULSE 75; RESP 18; TEMP 36.2; O2SAT 96
[2020-10-17 06:01] LABS: Anion Gap -1 mmol/L (8-16); Blood Urea Nitrogen 22 mg/dL (9-20); Calcium 7.9 mg/dL (8.4-10.2); Carbon Dioxide 32 mmol/L (22-30); Chloride 102 mmol/L (98-107); Estimated CRCL calculation 66 ml/min; Estimated Glomerular Filt Rate > 60; Glucose 91 mg/dL (75-110); Potassium 4.5 mmol/L (3.4-5.0); Sodium 133 mmol/L (137-145)
[2020-10-17] MEDS: CALCIUM CARBONATE (OSCAL) 500 MG TABLET PO (08:43)
[2020-10-17] MEDS: RIVAROXABAN 10 MG TABLET PO (08:43)
[2020-10-17] MEDS: CHOLECALCIFEROL 1,000 UNITS TABLET 1000 UNITS PO (08:43)
[2020-10-17] MEDS: DOCUSATE SODIUM 100 MG CAPSULE PO ×2 (08:43→17:28)
[2020-10-17] MEDS: FAMOTIDINE 20 MG TABLET PO ×2 (08:43→20:14)
--- NOTE | 2020-10-17 08:44 | PM.PNGS ---
Progress Note: A&P Assessment and Plan (1) Pneumothorax, left: Code(s): J93.9 - Pneumothorax, unspecified Status: Acute Assessment and Plan: Chest x-ray this morning showed no pneumothorax. Leave dressing in place for 2 more days, then he may remove this on Saturday. Follow-up only as needed with our service. We will sign off at this point. Let us know if any other surgical needs arise in the future. Additional Plan Discussed plan of care with Dr. Liang. Subjective Subjective Date/Time Seen: 10/17/20 08:44 Patient reports: no new complaints and feels better Interval history: Denies any shortness of breath or difficulty breathing. Sitting in the chair for a sponge bath this morning. No other complaints. Review of Systems Review of Systems: All systems reviewed & are unremarkable except as noted in HPI and below Exam Const: General: comfortable, no acute distress, alert and awake Orientation/consciousness: patient oriented x3 Chest: Other: Left chest dressing dry and intact. Resp: Effort & Inspection: normal respiratory effort and able to speak in complete sentences Auscultation: clear to auscultation bilaterally Cardio: Rate: regular rate Rhythm: regular rhythm Neuro: General: moves all extremities and no focal motor deficits Extrem: General: normal to inspection and no clubbing, cyanosis or edema Objective Data Vital Signs Vital Signs: Vital Signs - 24 hr 10/16/20 09:48 10/16/20 10:15 10/16/20 12:10 Temperature 97.8 F Pulse Rate 93 Respiratory Rate 18 18 18 Blood Pressure 131/58 L Pulse Oximetry 96 96 97 10/16/20 14:03 10/16/20 15:21 10/16/20 21:31 Temperature 98.0 F Pulse Rate 95 90 Respiratory Rate 18 18 Blood Pressure 143/61 H Pulse Oximetry 97 95 97 10/16/20 22:00 10/17/20 02:00 10/17/20 06:00 Temperature 97.8 F 97.5 F L 97.2 F L Pulse Rate 90 88 75 Respiratory Rate 18 18 18 Blood Pressure 140/62 142/70 H 115/52 L Pulse Oximetry 95 97 96 Intake/Output Intake/Output: Intake & Output 10/14/20 10/15/20 10/16/20 10/17/20 23:59 23:59 23:59 23:59 Intake Total 1880 2445 1270 360 Output Total 30 9920 1450 1000 Balance 1850 -805 -180 -640 Meds/Results Medications: Active Medications Generic Name Dose Route Start Last Admin Trade Name Freq PRN Reason Stop Dose Admin Acetaminophen 1,000 mg 10/10/20 14:00 10/17/20 05:50 Acetaminophen 500 Mg Tablet PO 1,000 mg Q8H MAIKEL Administration Calcium Carbonate 500 mg 10/11/20 09:00 10/17/20 08:43 Calcium Carbonate (Oscal) 500 Mg Tablet PO 500 mg QAM MAIKEL Administration Docusate Sodium 100 mg 10/10/20 17:00 10/17/20 08:43 Docusate Sodium 100 Mg Capsule PO 100 mg BID [facility] Administration Doxazosin Mesylate 8 mg 10/10/20 18:00 10/16/20 17:35 Doxazosin Mesylate 4 Mg Tablet PO 8 mg QPM [facility] Administration Famotidine 20 mg 10/10/20 21:00 10/17/20 08:43 Famotidine 20 Mg Tablet PO 20 mg Q12HR MAIKEL Administration Hydroxyzine HCl 50 mg 10/10/20 12:09 Hydroxyzine Hcl 25 Mg Tablet PO Q4H PRN Itching Doxycycline Hyclate 100 mg in 100 mls @ 100 mls/hr 10/15/20 09:00 10/17/20 08:43 Vibramycin 100 Mg/D5w 100 Ml IVPB 100 mls/hr Q12H [facility] Administration Piperacillin/Tazobactam/Dextrose 3.375 gm in 50 mls @ 100 mls/hr 10/17/20 08:45 Zosyn 3.375 Gm/D5w 50ml Pm IVPB Q6HR [facility] Magnesium Hydroxide 30 ml 10/10/20 12:09 10/15/20 13:30 Magnesium Hydroxide Susp 30 Ml Udc PO 30 ml BID PRN Administration Constipation Morphine Sulfate 1 mg 10/11/20 16:52 Morphine Sulfate (*Crx) 2 Mg/Ml Inj IV PUSH Q2H PRN Pain Rated 4-6 Morphine Sulfate 2 mg 10/11/20 16:55 Morphine Sulfate (*Crx) 2 Mg/Ml Inj IV PUSH Q2H PRN Pain Rated 7-10 Naloxone HCl 0.1 mg 10/10/20 12:09 Naloxone Hcl 0.4 Mg/Ml Vial IV PUSH Q2M PRN Opiate Reversal Ondansetron HCl 4 mg 10/10/20 12:09 Ondansetron Inj
--- NOTE | 2020-10-17 13:42 | PM.PNORT ---
Progress Note: A&P Assessment and Plan (1) Urinary retention: Code(s): R33.9 - Retention of urine, unspecified Status: Acute (2) History of hip replacement: Qualifiers: Laterality: right Qualified Code(s): Z96.641 - Presence of right artificial hip joint Code(s): Z96.649 - Presence of unspecified artificial hip joint Status: Acute (3) Pneumothorax, left: Code(s): J93.9 - Pneumothorax, unspecified Status: Acute Assessment and Plan: 84-year-old male postop day seven right hip replacement. Overall he has done well with his hip. He is glad the chest tube out. Would anticipate him being in the be transferred to retirement facility tomorrow pending COVID swab. Will be on p.o. antibiotics for another week or so. Continue PT/OT. Subjective Subjective Date/Time Seen: 10/17/20 13:42 Post Op day: POD 7 Principal diagnosis: Status post right total hip replacement Interval history: This document created with [id number] technology and is subject to molten iron pourer irregularities. 84-year-old male postop day seven right hip replacement. No issues with the hip. Chest tube removed yesterday. No issues there. Still has walker in. We are checking to see whether or not voiding study could be done prior to discharge. Review of Systems Constitutional: Constitutional: Denies chills and Denies fever(s) Eyes: Eyes: Reports no additional eye complaints ENT: Reports system reviewed and no additional complaints, except as documented Cardiovascular: Cardiovascular: Denies chest pain and Denies dyspnea on exertion Respiratory: Respiratory: Reports no additional respiratory complaints and Denies dyspnea on exertion Gastrointestinal: Gastrointestinal: Denies abdominal pain and Denies bloating Exam Const: General: cooperative, no acute distress and alert Nutritional Appearance: other Orientation/consciousness: patient oriented x3 Limitations: no limitations HENMT: Head: normal to inspection Ears: hearing grossly normal bilaterally Face and sinus: face symmetric Mouth: Yes moist mucous membranes Teeth and gingiva: fair dentition Eyes: Alignment and Position: alignment normal and position normal Sclera: sclerae normal Neck: Neck: normal visual inspection and nontender Chest: Chest palpation & inspection: normal inspection of the chest Resp: Effort & Inspection: normal respiratory effort and able to speak in complete sentences GI: Inspection: other (Nontender, nondistended) Skin: General skin exam: normal color Rashes: no rashes Neuro: General: patient oriented x3 Cognition (Neuro): normal cognition Speech: normal speech Sensory Exam: normal sensation Extrem: General: normal to inspection and other Other: Exam of right hip shows wound healing very nicely. No drainage, no erythema and minimal swelling. Neurovascular status right lower extremity intact. Psych: Appearance: grossly normal Mental Status: mental status grossly normal Objective Data Vital Signs Vital Signs: Vital Signs - 24 hr 10/16/20 14:03 10/16/20 15:21 10/16/20 21:31 Temperature 98.0 F Pulse Rate 95 90 Respiratory Rate 18 18 Blood Pressure 143/61 H Pulse Oximetry 97 95 97 10/16/20 22:00 10/17/20 02:00 10/17/20 06:00 Temperature 97.8 F 97.5 F L 97.2 F L Pulse Rate 90 88 75 Respiratory Rate 18 18 18 Blood Pressure 140/62 142/70 H 115/52 L Pulse Oximetry 95 97 96 Intake/Output Intake/Output: Intake & Output 10/14/20 10/15/20 10/16/20 10/17/20 23:59 23:59 23:59 23:59 Intake Total 1880 / 1880 2445 / 2445 1270 / 1270 990 / 990 Output Total 30 / 30 3250 / 3250 1450 / 1450 1000 / 1000 Balance 1850 / 1850 -805 / -805 -180 / -180 -10 / -10 Meds/Results Medications: Active Medications Generic Name Dose Route Start Last Admin Trade Name Yas PRN Reason Stop Dose Admin Acetaminophen 1,000 mg 10/10/20 14:00 10/17/20 05:50 Acetaminophen 500 Mg Tablet PO 1,0
--- NOTE | 2020-10-17 14:14 | PM.DS ---
DS: Summary Time Spent with Patient Time attestation: Total time spent providing and/or coordinating discharge services: DS: Data Data Completed and Pending Labs on day of discharge: Labs from last 24 hours 10/17/20 10/17/20 12:27 05:21 Sodium 133 L Potassium 4.5 Chloride 102 Carbon Dioxide 32 H Anion Gap -1 L BUN 22 H Creatinine 0.90 Estim Creat Clear Calc 66 Estimated GFR > 60 Glucose 91 Calcium 7.9 L SARS-CoV-2 RNA (RT-PCR) Pending Preliminary micro results at discharge 10/15/20 09:33 Blood Culture - Preliminary Blood 10/15/20 09:37 Blood Culture - Preliminary Blood Discharge Plan Discharge Attending physician on discharge: Bobby Yoo Consulting providers: Bobby Yoo ; Leobardo Liang Discharging Clinician: Bobby Yoo Patient Disposition: Inpatient Rehab Facility Discharge Instructions: Orthopedic instructions: 3 times daily for 20 minutes each time, reclining in bed with ice packs over the incision and a pillow underneath the calf of the affected leg, not under the knee. Your wound is glued so it is okay to get into the shower and get the wound wet in two days. Be sure to read through all the information that came from a my office and the hospital. Most of the answers you will need can be found that material. Call the office with any questions that you cannot find answers to, or concerns you may have. After the Xarelto is completed, start taking one coated 325 mg aspirin daily and do this for four more weeks. Please call [facility] at as soon as possible to verify follow-up appointment to be seen in about 7 weeks from now. Also, call the office with any orthopedic/surgical related questions prior to follow-up. Be sure to get up and move around several times daily but do not overdo it. Take the arthritis formula Tylenol 650 mg tablet on an 8 hour schedule. A good 8 hour schedule is: 6:00 a.m., 2:00 p.m., 10:00 p.m. you may take the prescribed pain medication along with the Tylenol; it is not to be taken instead of the Tylenol. I would like for you to take the Tylenol on a schedule for 2-3 weeks. Once the Xarelto is completed, if you wish to supplement your pain regimen with [id number]-[id number] anti-inflammatory such as Advil or Aleve, that is fine. Follow the label instructions. Do not take this medicine if you have an allergy to NSAIDs. You will be using her walker for a minimum of eight weeks from the point of surgery.At the eight week point, we will discuss possibly using a cane. UROLOGY INSTRUCTIONS: Call office to set up a voiding trial in 7-10 days in the office. Call if catheter is obstructed and will not drain, bloody urine is present or cloudy/malodorous urine is present. GENERAL SURGERY INSTRUCTIONS: Leave chest dressing in place until Saturday, then you may remove this. After Saturday, you may apply gauze dressings daily just as needed.. If you begin having shortness of breath, chest pain, or any difficulty breathing, go to the nearest ER. Patient to follow discharge care instructions from his orthopedic surgeon, general surgeon, and urologist patient to follow up with his primary care provider as soon as possible. Patient Instructions: Antibiotic Form, Rivaroxaban (By mouth), Spontaneous Pneumothorax (GEN), Traumatic Pneumothorax (GEN), Chest Tubes (GEN) Stand Alone Forms: General Discharge Information, General Discharge Instructions Follow-up/Referrals: Bobby Yoo MD [Physician] - Gonzalez Braxton MD [Primary Care Provider] - Carolynn Franks APRN [Advanced Practice Nurse] - Omer Leger MD [Physician] - Discharge Medications: New oxycodone 5 mg Tablet 5 mg PO Q4H PRN (Reason: Pain Rated 4-6) Qty: 20 RF: 0 famotidine 20 mg Tablet 20 mg PO Q12HR Qty: 60 RF: 0 Xarelto 10 mg Tablet 10 mg PO QAM Qty: 28 RF: 0 amoxicillin-pot clavulanate [Augmentin] 500-125 mg tablet
[2020-10-17] MEDS: DOXAZOSIN MESYLATE 4 MG TABLET 8 MG PO (17:28)
[2020-10-17 20:23] LABS: SARS-CoV-2 RNA PCR Negative
[2020-10-17 22:00] VITALS: BP 138/60; PULSE 86; RESP 18; TEMP 36.4; O2SAT 96
[2020-10-18 02:00] VITALS: BP 141/68; PULSE 82; RESP 20; TEMP 36.1; O2SAT 98
[2020-10-18 05:42] LABS: Anion Gap 1 mmol/L (8-16); Blood Urea Nitrogen 16 mg/dL (9-20); Calcium 7.9 mg/dL (8.4-10.2); Carbon Dioxide 30 mmol/L (22-30); Chloride 102 mmol/L (98-107); Estimated CRCL calculation 66 ml/min; Estimated Glomerular Filt Rate > 60; Glucose 94 mg/dL (75-110); Potassium 4.4 mmol/L (3.4-5.0); Sodium 133 mmol/L (137-145)
[2020-10-18 06:00] VITALS: BP 128/69; PULSE 77; RESP 20; TEMP 36.3; O2SAT 98
[2020-10-18] MEDS: ACETAMINOPHEN 500 MG TABLET 1000 MG PO ×3 (06:00→21:02)
--- NOTE | 2020-10-18 06:58 | PM.DS ---
DS: Admitting Diagnosis Admitting Diagnosis Admitting Diagnosis: Osteoarthritis right hip DS: Discharge Diagnosis Discharge Diagnosis (1) History of hip replacement: Qualifiers: Laterality: right Qualified Code(s): Z96.641 - Presence of right artificial hip joint Code(s): Z96.649 - Presence of unspecified artificial hip joint Status: Acute (2) Urinary retention: Code(s): R33.9 - Retention of urine, unspecified Status: Acute (3) Pneumothorax, left: Code(s): J93.9 - Pneumothorax, unspecified Status: Acute Assessment and Plan: Plan on discharge to rehab facility. He is going to be on p.o. antibiotics for another week for the pneumonia. Chest tube dressing will be removed in two more days. Needs to be arranged for catheter removal. DS: Summary Hospital Course Reason for hospitalization: Initially following the patient's surgery he was admitted for observation and pain control following the right hip replacement surgery. See below. Hospital Course: Following the patient's surgery, he was admitted to the floor. Regarding the hip he did well postoperatively and had no issues. On postop day one, it was discovered that he had a left pneumothorax which was treated by Dr. Liang with a chest tube. He was also experiencing urinary retention so the fully catheter was inserted. Removal of that will be handled by Dr. Alicea' office. He was also diagnosed with a lower lobe pneumonia. He was put on IV antibiotics were switched to p.o.. These will be running for one more week in the nursing facility. Status at Discharge Functional status at discharge: uses cane/walker Overall status at discharge: patient is not back to baseline Time Spent with Patient Time attestation: Total time spent providing and/or coordinating discharge services: Time spent: Less than 30 minutes Exam Const: General: cooperative Nutritional Appearance: well nourished HENMT: Head: normal to inspection Neck: Neck: normal visual inspection Chest: Chest palpation & inspection: normal inspection of the chest Resp: Effort & Inspection: normal respiratory effort and able to speak in complete sentences Cardio: Rate: regular rate Peripheral pulses: Peripheral pulses 2+ throughout (Lower extremities) Extrem: Other: Right hip wound healing very nicely. No drainage. No bruising and very little swelling noted. Neurovascular status grossly intact right lower extremity Psych: Thought content: Yes Normal thought content present DS: Data Data Completed and Pending Labs on day of discharge: Labs from last 24 hours 10/18/20 10/17/20 05:14 12:27 Sodium 133 L Potassium 4.4 Chloride 102 Carbon Dioxide 30 Anion Gap 1 L BUN 16 Creatinine 0.90 Estim Creat Clear Calc 66 Estimated GFR > 60 Glucose 94 Calcium 7.9 L SARS-CoV-2 RNA (RT-PCR) Negative Preliminary micro results at discharge 10/15/20 09:33 Blood Culture - Preliminary Blood 10/15/20 09:37 Blood Culture - Preliminary Blood Discharge Plan Discharge Attending physician on discharge: Bobby Yoo Consulting providers: Bobby Yoo Discharging Clinician: Bobby Yoo Anticipated Discharge Date/Time: 10/18/20 12:00 Patient Disposition: Inpatient Rehab Facility Activity: may shower and other - see discharge instructions Diet: regular Wound Care Instructions: incision open to air and other - see discharge instructions Discharge Instructions: Orthopedic instructions: 3 times daily for 20 minutes each time, reclining in bed with ice packs over the incision and a pillow underneath the calf of the affected leg, not under the knee. Your wound is glued so it is okay to get into the shower and get the wound wet in the shower. Be sure to read through all the information that came from a my office and the hospital. Most of the answers you will need can be found those materials. Call the of
[2020-10-18] MEDS: CALCIUM CARBONATE (OSCAL) 500 MG TABLET PO (08:17)
[2020-10-18] MEDS: FAMOTIDINE 20 MG TABLET PO ×2 (08:18→21:00)
[2020-10-18] MEDS: RIVAROXABAN 10 MG TABLET PO (08:18)
[2020-10-18] MEDS: DOCUSATE SODIUM 100 MG CAPSULE PO (08:18)
[2020-10-18] MEDS: CHOLECALCIFEROL 1,000 UNITS TABLET 1000 UNITS PO (08:18)
[2020-10-18] MEDS: DOXYCYCLINE HYCLATE 100 MG TABLET PO ×2 (10:18→21:00)
--- NOTE | 2020-10-18 10:48 | PCNWS ---
Weekly nutritional screen. Patient is tolerating current diet with adequate intake consuming 100% of meals and enjoying the food. No weight loss reported. No nutritional needs at this time.
--- NOTE | 2020-10-18 11:07 | PCNSR ---
On 10/18/20, the student, Priscilla Steiner, provided care and completed [facility] documentation on this patient. I have reviewed the student's documentation and agree with the findings.
--- NOTE | 2020-10-18 13:40 | PM.IMPN ---
Progress Note: A&P Assessment and Plan (1) Chest pain: Code(s): R07.9 - Chest pain, unspecified Status: Acute Assessment and Plan: 10/17/2010/10 Pablo Isaac is a 84 year old male with history of hypertension cardiac murmur for which patient had echo which was essentially normal with ejection fraction of 65% and no significant valvular stenosis, patient with severe osteoarthritis of the right knee had right knee total arthroplasty, surgery was uncomplicated however after the surgery patient felt left-sided chest pain and described as a pressure I receive a call from anesthesiologist and we were consulted for further management, from OR first trope was ordered and it was negative and there were no acute changes on EKG. Patient currently sitting in the chair, patient is still complains of left-sided chest pain with deep breath and pain is not reproducible, so far 2 sets of cardiac enzymes are negative will follow-up on the however patient is clinically stable does not appear to be in acute coronary syndrome, does complaint of right hip and knee pain which is chronic and status post right knee total arthroplasty. Patient is present in the room. 10/11 today patient lying in the bed chest pain has resolved patient 3 sets of cardiac enzymes are negative unlikely coronary artery syndrome most likely secondary to mechanical support placed on the left side to to prevent injury to left brachial plexus, did participate in physical therapy, discussed with orthopedic surgeon will monitor patient overnight and continue physical therapy, patient will benefit going to rehab before going home. 10/12, late afternoon pm 10/11 patient left sided chest patient was getting worse and he was short of breath, to further evaluate patient had CXR, received the call from radiologist that patient has a large left sided pneumothorax, I called Dr. Liang and Dr Liang came and place a chest tube and repeat chest x-ray showed resolution of the pneumothorax, this morning patient was seen by Garth, repeat chest x-ray showed small apical pneumo, patient chest tube continous suction, will continue to monitor and further recommendation to follow, chest x-ray is concerning for pulmonary congestion will give Laxis 40mg IV x1. patient will be seen by his orthopedic and further recommendation to follow. 10/13 today patient stats he is feeling better and not as short of breath and denies any CP, currently working with PT, chest x-ray shows resolution however seen by Dr. Liang, still has air leak, recommended to continue chest tube to suction today and reassess tomorrow. will continue to monitor 10/14 today patient stats he is feeling better and not as short of breath and denies any CP, currently working with PT, patient was seen by Dr. Liang, air leak has resolved and chest tube placed on water seal, will reassess tomorrow if leaks remain resolved and patient is clinically stable, will remove the tube, patient is having significant urinary retention, 600ml in bladder will do straight cath and consult urologist for further recommendation. 10/15 today repeat x-ray shows improvement in pneumothorax however developed pneumonia however clinically patient does not have significant complaint of cough shortness of breath fever or chills, will start the patient on Zosyn and doxycycline, encourage patient to use inspirometer, patient was seen by his surgeon recommending to monitor 1 more day with chest tube, will continue present management and further recommendation to follow. 10/16 today a chest x-ray shows near resolution of pneumothorax seen by surgery service and chest tube is removed, patient states is feeling much better, chest x-ray also showed mild persistent atelectasis versus pneumonia patient is clinically improved has no fever, may discharge the patient home tomorrow on oral antibiotic, patient's sodium is trending low patient instructed to reduce free water intake and will continu
[2020-10-18] MEDS: DOXAZOSIN MESYLATE 4 MG TABLET 8 MG PO (17:47)
[2020-10-18 20:47] VITALS: BP 131/66; PULSE 90; RESP 18; TEMP 36.9; O2SAT 95
[2020-10-19] VITALS (7 sets, daily range): BP systolic 121–141; BP diastolic 43–78; PULSE 76–96; RESP 16–18; TEMP 36.4–36.8; O2SAT 94–99
[2020-10-19] MEDS: ACETAMINOPHEN 500 MG TABLET 1000 MG PO ×2 (08:00→13:24)
[2020-10-19] MEDS: FAMOTIDINE 20 MG TABLET PO (08:01)
[2020-10-19] MEDS: CALCIUM CARBONATE (OSCAL) 500 MG TABLET PO (08:01)
[2020-10-19] MEDS: DOCUSATE SODIUM 100 MG CAPSULE PO (08:02)
[2020-10-19] MEDS: RIVAROXABAN 10 MG TABLET PO (08:02)
[2020-10-19] MEDS: CHOLECALCIFEROL 1,000 UNITS TABLET 1000 UNITS PO (08:02)
[2020-10-19] MEDS: DOXYCYCLINE HYCLATE 100 MG TABLET PO (08:02)
--- NOTE | 2020-10-19 13:42 | PC.NURSE ---
On 10/19/20, the student, [Nanda Nevarez ], provided care and completed [employer] documentation on this patient. I have reviewed the student's documentation and agree with the findings.
--- NOTE | 2020-10-19 14:54 | PM.DS ---
DS: Admitting Diagnosis Admitting Diagnosis Admitting Diagnosis: Chest pain shortness of breath DS: Discharge Diagnosis Discharge Diagnosis (1) Chest pain: Code(s): R07.9 - Chest pain, unspecified Status: Acute Assessment and Plan: 10/18/20 13:57 10/10 Pablo Isaac is a 84 year old male with history of hypertension cardiac murmur for which patient had echo which was essentially normal with ejection fraction of 65% and no significant valvular stenosis, patient with severe osteoarthritis of the right knee had right knee total arthroplasty, surgery was uncomplicated however after the surgery patient felt left-sided chest pain and described as a pressure I receive a call from anesthesiologist and we were consulted for further management, from OR first trope was ordered and it was negative and there were no acute changes on EKG. Patient currently sitting in the chair, patient is still complains of left-sided chest pain with deep breath and pain is not reproducible, so far 2 sets of cardiac enzymes are negative will follow-up on the however patient is clinically stable does not appear to be in acute coronary syndrome, does complaint of right hip and knee pain which is chronic and status post right knee total arthroplasty. Patient is present in the room. 10/11 today patient lying in the bed chest pain has resolved patient 3 sets of cardiac enzymes are negative unlikely coronary artery syndrome most likely secondary to mechanical support placed on the left side to to prevent injury to left brachial plexus, did participate in physical therapy, discussed with orthopedic surgeon will monitor patient overnight and continue physical therapy, patient will benefit going to rehab before going home. 10/12, late afternoon pm 10/11 patient left sided chest patient was getting worse and he was short of breath, to further evaluate patient had CXR, received the call from radiologist that patient has a large left sided pneumothorax, I called Dr. Liang and Dr Liang came and place a chest tube and repeat chest x-ray showed resolution of the pneumothorax, this morning patient was seen by Garth, repeat chest x-ray showed small apical pneumo, patient chest tube continous suction, will continue to monitor and further recommendation to follow, chest x-ray is concerning for pulmonary congestion will give Laxis 40mg IV x1. patient will be seen by his orthopedic and further recommendation to follow. 10/13 today patient stats he is feeling better and not as short of breath and denies any CP, currently working with PT, chest x-ray shows resolution however seen by Dr. Liang, still has air leak, recommended to continue chest tube to suction today and reassess tomorrow. will continue to monitor 10/14 today patient stats he is feeling better and not as short of breath and denies any CP, currently working with PT, patient was seen by Dr. Liang, air leak has resolved and chest tube placed on water seal, will reassess tomorrow if leaks remain resolved and patient is clinically stable, will remove the tube, patient is having significant urinary retention, 600ml in bladder will do straight cath and consult urologist for further recommendation. 10/15 today repeat x-ray shows improvement in pneumothorax however developed pneumonia however clinically patient does not have significant complaint of cough shortness of breath fever or chills, will start the patient on Zosyn and doxycycline, encourage patient to use inspirometer, patient was seen by his surgeon recommending to monitor 1 more day with chest tube, will continue present management and further recommendation to follow. 10/16 today a chest x-ray shows near resolution of pneumothorax seen by surgery service and chest tube is removed, patient states is feeling much better, chest x-ray also showed mild persistent atelectasis versus pneumonia patient is clinically improved has no fever, may discharge the patient home tomorrow on
== END 2020-10-19 16:15 | disposition home health service (06) | DRG 469 ==
LOC: ANHSURGERY 15:34 → ANH2MED 15:34
PROVIDERS: Anesthesiology; Surgery; Admitting Provider Orthopaedic Surgery; PCP Family Medicine; Visit Provider Family Medicine
PROC: 0SR904Z Replacement of Right Hip Joint with Ceramic on Polyethylene Synthetic Substitute, Open Approach (ICD-10-PCS; CPT 27130; principal; 2020-10-10 07:30)
DX: M16.11 Unilateral primary osteoarthritis, right hip (principal); J18.9 Pneumonia, unspecified organism; J93.83 Other pneumothorax; N17.9 Acute kidney failure, unspecified; R33.9 Retention of urine, unspecified; Z20.828 Contact with and (suspected) exposure to other viral communicable diseases; I35.1 Nonrheumatic aortic (valve) insufficiency; I10 Essential (primary) hypertension; M25.561 Pain in right knee; Z79.01 Long term (current) use of anticoagulants; Z79.82 Long term (current) use of aspirin; Z85.46 Personal history of malignant neoplasm of prostate; Z90.79 Acquired absence of other genital organ(s); Z98.49 Cataract extraction status, unspecified eye
CPT/HCPCS: 36415; 71045; 73502; 80048; 82948; 84484; 85014; 85018; 85027; 87040; 93005; 97110; 97116; 97161; 97165; 97530; 97535; A9270; C1776; C9803; G0378; J0690; J1100; J1940; J2270; J2405; J2543; J2704; J2710; J3010; J7030; J7120; U0003; U0005

== ENCOUNTER 2020-10-24 13:09 | Outpatient (CLI) | payer MEDICARE, SELFPAY ==
--- NOTE | ~2020-10-24 | US_ITS ---
EXAMINATION: US venous doppler LE RT EXAM DATE: 10/24/2020 13:53 INDICATION: Right leg pain and swelling. Right hip replacement 2 weeks ago. TECHNIQUE: Multiple grayscale, color flow and Doppler images of the right lower extremity deep venous system were obtained and reviewed. Correlation is made to CT abdomen pelvis 02/19/2013. FINDINGS: The right common femoral, femoral and profunda veins demonstrate normal color flow, respira tory variation, augmentation and compressibility. Compressibility, color flow confirmed within the r ight popliteal, posterior tibial, peroneal, and greater saphenous veins. Focal region was measured in the right groin measuring 3.2 x 1.5 cm, nonspecific. Could be lipoma or inguinal fat-containing hernia, which was demonstrated on a CT scan in 2012. IMPRESSION: 1. No right lower extremity deep venous thrombosis. 2. Nonspecific subcutaneous right groin region, could be lipoma or fat-containing inguinal hernia. Reviewed, dictated and finalized at location A. IMPRESSION: 1. No right lower extremity deep venous thrombosis. 2. Nonspecific subcutaneous right groin region, could be lipoma or fat-contain ing inguinal hernia.
== END 2020-10-24 13:10 | disposition home or self-care (01) ==
PROVIDERS: PCP Family Medicine; Visit Provider Orthopaedic Surgery
DX: M79.661 Pain in right lower leg (principal); M79.89 Other specified soft tissue disorders
CPT/HCPCS: 93971

== ENCOUNTER 2021-03-03 08:15 | Outpatient (CLI) | payer MEDICARE, SELFPAY ==
--- NOTE | ~2021-03-03 | XR_ITS ---
XR ankle LT min 3V DATE: 03/03/2021 08:53 INDICATION: Left ankle pain TECHNIQUE: 4 views COMPARISON: None FINDINGS: Diffuse osteopenia. Pes planus. Plantar calcaneal enthesopathy. Prominent osteoarthritic changes are noted at the tarsal and tarsometatarsal joints. There is soft tissue swelling of the ankle, most prominent laterally. No ankle fracture or dislocation or disruption of the ankle mortise is detected. IMPRESSION: Soft tissue swelling, especially laterally Prominent osteoarthritic change of the tarsal and tarsometatarsal joints Plantar calcaneal enthesopathy Reviewed, dictated and finalized at location B.
--- NOTE | ~2021-03-03 | XR_ITS ---
XR knee LT min 4V DATE: 03/03/2021 08:53 INDICATION: Left knee pain TECHNIQUE: Standing AP and PA views. [place] and lateral views. COMPARISON: None FINDINGS: There is osteopenia. There is valgus deformity. There is severe narrowing at the patellofemoral and lateral compartments. There is prominent periarti cular spurring of the patellofemoral joint. Lesser periarticular spurring of the lateral tibial plate au. Chondrocalcinosis is noted at the medial and lateral compartments. No fracture or dislocation, periosteal reaction or bone destruction. Small suprapatellar knee joint e ffusion. IMPRESSION: Diffuse osteopenia Valgus deformity Severe osteoarthritic change at the patellofemoral and lateral compartments Chondrocalcinosis Reviewed, dictated and finalized at location B.
== END 2021-03-03 08:16 | disposition home or self-care (01) ==
PROVIDERS: PCP Family Medicine; Visit Provider Family Medicine
DX: M85.862 Other specified disorders of bone density and structure, left lower leg (principal); M17.12 Unilateral primary osteoarthritis, left knee; M19.072 Primary osteoarthritis, left ankle and foot; M77.32 Calcaneal spur, left foot
CPT/HCPCS: 73564; 73610

== ENCOUNTER 2022-04-09 13:04 | Outpatient (CLI) | payer MEDICARE, SELFPAY ==
--- NOTE | ~2022-04-09 | US_ITS ---
EXAMINATION: US soft tissue LE RT DATE: 04/09/2022 14:21 INDICATION: Soft tissue swelling lateral to right hip. Right hip pain. TECHNIQUE: Multiple grayscale and Doppler ultrasound images of the right lower limb were obtained. COMPARISON: Right hip radiographs 04/04/2022 FINDINGS: Lateral to right hip, there is a 4.3 x 1.5 x 3.1 cm hypoechoic mass. IMPRESSION: 1. Mass lateral to right hip, most likely a hematoma. Reviewed, dictated and finalized at location A.
== END 2022-04-09 13:05 | disposition home or self-care (01) ==
PROVIDERS: PCP Physician Assistant; Visit Provider Nurse Practitioner
DX: M79.89 Other specified soft tissue disorders (principal); M25.551 Pain in right hip
CPT/HCPCS: 76882

== ENCOUNTER 2022-09-28 09:00 | Outpatient (RCR) | payer MEDICARE, SELFPAY ==
--- NOTE | 2022-08-16 10:58 | PTOPEVAL1 ---
Assessment and note entered by Alexa Tariq DPT Evaluation Information Assessment Status Evaluation Subjective Information Pt reports previous R hip and knee replacements. Reports he needs a L replacement but he and MD are unsure due to complications with a previous surgery. Has been having cortisone injections in his L knee and wearing a brace and using a cane. Reports some relief of pain with the brace and his most recent injection. Was having significant difficulty with sit to stand and walking (used a walker at times). 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 MD wants to try therapy before anything else at this point. Highest pain 8-9/10 and lowest 2/10. Difficulty sleeping due to pain, standing more than 20 minutes to do activities at home. Reported Pain Level Pain Score 3: Self Report Assessment PT Clinical Summary The patient is presenting to skilled therapy with a diagnosis of L knee OA and knee pain. He presents with decreased range of motion, decreased strength, balance and gait impairments which are contributing to his pain and difficulty with walking, sit to stand, and standing to do activities at home. He will benefit from skilled therapy to address these impairments and safely reduce pain and dysfunction. Plan of Care Interventions Hot Pack/Cold Pack,Manual Therapy,Neuro Re- education,Patient/Caregiver Education,Therapeutic Activities,Therapeutic Exercise,Self-Care/Home Management PT Services Indicated Yes Treatment Frequency and 2 times a week for 6 weeks Duration These treatments will address the objective and functional deficits as defined above. The patient will be advanced safely and appropriately in order for the patient to progress towards his/her prior level of function. Additional exercises will be introduced and as well as a comprehensive home exercise program upon discharge, if needed, ?to ensure carryover of functional gains achieved in the clinic. This treatment plan has been reviewed and agreement upon by the patient.
--- NOTE | 2022-09-28 09:40 | PTOPEVAL1 ---
Assessment and note entered by Alexa Tariq DPT Evaluation Information Assessment Status Discharge Subjective Information Pt reports he has noticed a good improvement with therapy. Highest pain in the last week 2-3/10, lowest 0/10. States he can stand if he has to stand without a problem. Has been going to the [facility] and trying to work on standing up with using his hands Reported Pain Level Pain Score 0: Self Report Assessment PT Clinical Summary The patient has made good progress in therapy. He reports greatly decreased pain overall and less difficulty with standing activities. He demonstrates improved knee range of motion, improved LE strength, improved walking speed and 5 time sit to stand. Due to his progress, plan for discharge at this time. He has been educated in a thorough HEP and to follow up with MD and/or PT as needed. Plan of Care PT Services Indicated No These treatments will address the objective and functional deficits as defined above. The patient will be advanced safely and appropriately in order for the patient to progress towards his/her prior level of function. Additional exercises will be introduced and as well as a comprehensive home exercise program upon discharge, if needed, ?to ensure carryover of functional gains achieved in the clinic. This treatment plan has been reviewed and agreement upon by the patient.
== END 2022-09-28 14:23 | disposition home or self-care (01) ==
LOC: ANHPT 09:00
PROVIDERS: PCP Physician Assistant; Visit Provider Nurse Practitioner
DX: M17.12 Unilateral primary osteoarthritis, left knee (principal)
CPT/HCPCS: 97014; 97110; 97112; 97161; 97530; G0283

== ENCOUNTER 2025-01-20 13:43 | Outpatient (CLI) | payer MEDICARE, SELFPAY ==
--- NOTE | ~2025-01-20 | DEXA_ITS ---
Bone Density Report Name: KELLY CHAVEZ Age: 89 Sex: Male Ethnicity: White Date of : 1935 Indication: screening for osteoporosis; height loss; Referring Provider: SHARAN, IAM Johnson Study: Bone densitometry was performed. Exam Date: January 20, 2025 Accession number: [id number] Bone Density: Region BMD T-score Z-score Classification AP Spine(L1-L4) 1.093 0.0 1.3 Normal Femoral Neck (Left) 0.690 -1.8 -0.1 Osteopenia Total Hip (Left) 0.812 -1.5 -0.2 Osteopenia World Health Organization criteria for BMD impression classify patients as: Normal (T-score at or above -1.0), Osteopenia (T-score between -1.0 and -2.5), or Osteoporosis (T-score at or below -2.5). 10-year Fracture Risk(1): Major Osteoporotic Fracture 6.5% Hip Fracture 2.7% Reported Risk Factors: [place] (), Neck BMD=0.690, BMI=32.9 (1) FRAX(R) Version 3.08. Fracture probability calculated for an untreated patient. Fracture probability may be lower if the patient has received treatment. Previous Exams: -- Region Exam Age BMD T-score BMD Change BMD Change Date g/cm2 vs Baseline vs Previous -- AP Spine (L1-L4) 01/20/2025 89 1.093 0.0 1.9% 1.9% 05/30/2015 79 1.072 -0.2 Total Hip(Left) 01/20/2025 89 0.812 -1.5 -8.4%* -8.4%* 05/30/2015 79 0.887 -1.0 -- *Denotes significance at 95% confidence level, LSC for AP Spine = 0.022 g/cm2, LSC for Total Hip = 0.027 g/cm2 Clinical Information Provided by Patient: Has used the following medications: Vitamin D, Calcium Patient maximum height was 72 No regular weight bearing exercise Drinks caffeinated beverages Impression: The patient has low bone mass, based on the Left Femoral Neck T-score. The patient has an estimated ten-year risk of hip fracture of 2.7% and an estimated ten-year risk of major fracture of 6.5%, based on the WHO FRAX algorithm. The BMD for the Total Hip(Left) decreased, changing by -8.4% since the last DXA exam. Discussion: BONE DENSITY IS LOW AT ONE OR MORE SKELETAL SITES. This patient's lowest T-score is low at one or more skeletal sites. It meets the World Health Organization's (WHO) criteria for ?low bone mass? (T-score between -1.0 and -2.5). The patient's 10-year risk of fracture as calculated by FRAX is less than the threshold where pharmacological therapy is recommended by the National Osteoporosis Foundation (NOF). However, all treatment decisions require clinical judgment and consideration of individual patient factors, including patient preferences, comorbidities, previous drug use, risk factors not captured in the FRAX model (e.g., frailty, falls, vitamin D deficiency, increased bone turnover, interval significant decline in bone density) and possible under or overestimation of fracture risk by FRAX. The patient should follow a healthful lifestyle (good nutrition with adequate calcium and vitamin D, and appropriate weight-bearing exercise). Follow-Up: Consider repeating this study in 2 years to reassess this patient's status, or sooner if there is some new clinical indication. Reported by: CHIO on 01/20/2025 2:11:00 PM. Reviewed, dictated and finalized at location A.
== END 2025-01-20 13:44 | disposition home or self-care (01) ==
LOC: MICIMG 13:44
PROVIDERS: PCP Student in an Organized Health Care Education/Training Program; Visit Provider Orthopaedic Surgery Sports Medicine
DX: M85.819 Other specified disorders of bone density and structure, unspecified shoulder (principal); M80.00XD Age-related osteoporosis with current pathological fracture, unspecified site, subsequent encounter for fracture with routine healing
CPT/HCPCS: 77080

== ENCOUNTER 2025-02-11 13:38 | Outpatient (CLI) | payer MEDICARE, SELFPAY ==
--- OUTSIDE RECORDS SUMMARY | 2025-02-11 13:46 | XMS_ITS | Continuity of Care Document ---
Author Organization [facility] - Main Address [address] [address] Insurance Providers Payer Plan Claims Address Claims Phone Policy Number Group Number Relation Employer Guarantor Name Guarantor Guarantor Address Guarantor Phone [employer] [facility] [id number] Self Pablo Isaac [address] [place] [address] [id number] [place] [facility] [id number] Self Pablo Isaac [address] [place] [address] [id number] [employer] [address], [place] [address] tel:[phone] [place] [address] [phone] Self Pablo Isaac [address] [place] [address] [id number] Problems Condition ICD9 code ICD10 code SNOMED code Start Date End Date S tatus Unilateral primary osteoarthritis, left knee M17.12 Working Obesity, unspecified E66.9 Wor adryan Pain in unspecified foot M79.673 Working Pain in left knee M25.562 Workin g Pain, unspecified R52 Results No Results Allergies, adverse reactions, alerts No known allergies and adverse reactions Medications No administered medications reported Vital Signs No vital signs reported Social History No smoking Hx information available
--- OUTSIDE RECORDS SUMMARY | 2025-02-11 13:46 | XMS_ITS | Encounter Summary ---
Author Organization [facility] Address [address] [place] [address] Care Team Providers Care Torch Burner Name Role Phone Sagar Corley Primary Care Provider Unavailmelissa e Encounter Details Date Type Department Care Team (Latest Contact Info) Description 02/11/2025 Travel Social History Tobacco Use Types Packs/Day Years Used Date Smoking Tobacco: Never Smokeless Tobacco: Never Alcohol Use Standard Drinks/Week Comments Never 0 (1 standard drink = 0.6 oz pur e alcohol) PHQ-2 Answer Date Recorded Patient Health Questionnaire-2 Score 1 02/09/2025 Sex and Gender Information Value Date Recorded Sex Assigned at Not on file Legal Sex Male 11:52 AM CDT Gender Identity Not on file Sexual Orientation Not on file documented as of this encounter Plan of Treatment Upcoming Encounters Date Type Department Care Team (Late st Contact Info) Description 02/15/2025 9:15 AM CDT Office Visit [facility] - Orthopedic Surgery [address] [address] Shelby Arrieta, PAAllyssaC [address] [place] [address] 03/01/2025 9:50 AM CDT Office Visit [facility] [address] [place] [id number] Ai Helms, [employer]IG[employer]ACHINE [employer] S[employer] [address] [place] [address] documented as of this encounter Visit Diagnoses Not on filedocumented in this encounter Care Teams Torch Burner Relationship Specialty Start Date End Date Sagar Corley PCP - General 12/25/24 documented as of this encounter
--- OUTSIDE RECORDS SUMMARY | 2025-02-11 13:46 | XMS_ITS | Clinical Summary ---
Author Organization [facility] Mobile Address [address] [place] [address] Care Team Providers Care Supervisor [employer] Name Role Phone JorySagar Primary Care Provider Unavailabl e Source Comments [facility],non-owned Affiliates and Associated Physician Practices is amultiple site organization consisting of ambulatory clinics and hospital sitesin [place], [place], [place] and [place]. This disclosure is being madepursuant to the Care Everywhere program and may not contain all information available regarding this patient. Last updated 18.[facility] Mobile Allergies Active Allergy Reactions Criticality Noted Date Comments Acetaminophen-Codeine Rash Medium 12/16/2024 Hydrocodone-Acetaminophen Nausea and/or Vomiting 12/16/2024 Poareebu-Omdvxdcd-Aa Rash Medium 12/16/2024 Medications * Be aware that medications may not be up to date on this document. Alwaysverify current medications with the patient. amoxicillin (Amoxil) 500 MG capsule 4 Active doxazosin (Cardura) 8 MG tablet Take 1 (one) tablet by mouth once daily 5 Active fluticasone propionate (Flonase) 50 MCG/ACT nasal spray 2 (two) sprays 5 Active oxyCODONE, immediate release, (Roxicodone) 5 MG tablet Take 1 (one) tablet by mouth every 6 hours as needed 5 Active Multiple Vitamins-Sutter als (PreserVision AREDS 2) capsule Take 2 (two) capsules by mouth 2 times daily Active diclofenac sodium (Voltaren) 1 % gel Apply to affected area 4 times daily Active acetaminophen (Tylenol) 500 MG tablet Take 1 (one) tablet by mouth every 4 hours as needed for Fever or Pain Maximum allowable Acetaminophen amount = 4 Grams (4000 mg) / 24 hours. Active B Lyzlkfj-U-Udmh c Acid (vitamin B complex with C) Take by mouth once daily Active VITAMIN D-VITAMIN K PO Activ e carboxymethylc ellulose 1 % ophthalmic gel Activ e magnesium 30 MG tablet Take 1 (one) tablet by mouth once daily Active bisacodyl EC 5 MG tablet Take 1 (one) tablet by mouth once as needed for Constipation Active potassium chloride ER (Micro-K) 10 MEQ capsule Take 1 (one) capsule by mouth once daily 5 Active furosemide (Lasix) 20 MG tablet Take 1 (one) tablet by mouth every morning Active Active Problems Problem Noted Date Diagnosed Date Obesity, unspecified 01/26/2025 Pain in left knee 01/26/2025 Pain in unspecified foot 01/26/2025 Pain, unspecified 01/26/2025 Unilateral primary osteoarthritis, left knee 07/2024 Encounters Date Type Department Care Team Description 02/11/2025 Travel 02/08/2025 Orders Only [facility] - Orthopedic Surgery [address] [place] [id number] Shelby Arrieta PA-C Closed 3-part fracture of proximal humerus with routine healing, right 01/26/2025 Telephone [facility] - Orthopedic Surgery [address] [place] [id number] Shelby Arrieta PA-C Results (Bone Dexa and Referral ) 01/26/2025 Telephone [facility] - Orthopedic Surgery [address] [place] [id number] Shelby Arrieta PA-C Erroneous encounter-disregard 01/25/2025 Telephone [facility] - Orthopedic Surgery [address] [id number] Shelby Arrieta PA-C Results 01/18/2025 11:59 AM CDT - 01/18/2025 11:59 PM CDT Hospital Encounter [facility] - Outside Imaging Discharge Disposition: Home or Self Care 01/18/2025 11:59 AM CDT - 01/18/2025 11:59 PM CDT Hospital Encounter [facility] - Outside Imaging Discharge Disposition: Home or Self Care 01/18/2025 9:30 AM CDT Office Visit [facility] - Orthopedic Surgery [address] [place] [address] Shelby Arrieta PA-C Closed 3-part fracture of proximal humerus with routine healing, right (Primary Dx) 01/18/2025 9:15 AM CDT - 01/18/2025 11:58 AM CDT Hospital Encounter [facility] - Radiology [address] [id number] Shelby Arrieta PA-C Discharge Disposition: Home or Self Care 01/18/2025 Telephone [facility] Surgery [address] [place] [phone] Shelby Arrieta PA-C Order Information Change 01/18/2025 Telephone [facility] - Orthopedic Surgery [address] [place] [phone] Shelby Arrieta PA-C Imaging 01/18/2025 Orders Only [facility] - Orthopedic Surgery [address] [phone] Shelby Arrieta PA-C 01/18/2025 Travel 01/08/2025 Telephone [facility] - Orthopedics [address] [place] [address] Rosaura Rey, RN Order 01/08/2025 Orders Only [facility] - Orthopedic Surgery [address] [place] [phone] Shelby Arrieta PA-C Closed 3-part fracture of proximal humerus with routine healing, right 12/28/2024 11:10 AM CDT Office Visit [facility] - Orthopedic Surgery [address] [place] [address] Oliver Colby MD Closed 3-part fracture of proximal humerus with routine healing, right (Primary Dx); Age-related osteoporosis with current pathological fracture, initial encounter 12/28/2024 Travel 12/25/2024 Orders Only [facility] - Orthopedic Surgery [address] [place] [phone] Oliver Colby MD Pain of right humerus from Last 3 Months Social History Tobacco Use Types Packs/Day Years Used Date Smoking Tobacco: Never Smokeless Tobacco: Never Tobacco Cessation:Counseling Given: Not Answered Alcohol Use Standard Drinks/Week Comments Never 0 (1 standard drink = 0.6 oz pur e alcohol) PHQ-2 Answer Date Recorded Patient Health Questionnaire-2 Score 1 02/09/2025 Sex and Gender Information Value Date Recorded Sex Assigned at Not on file Legal Sex Male 11:52 AM CDT Gender Identity Not on file Sexual Orientation Not on file Last Filed Vital Signs Vital Sign Reading Time Taken Comments Blood Pressure - - Pulse - - Temperature - - Respiratory Rate - - Oxygen Saturation - - Inhaled Oxygen Concentration - - Weight 99.8 kg (220 lb) 01/18/2025 9:35 AM CDT Height 177.8 cm (5' 10) 01/18/2025 9:35 AM CDT Body Mass Index 31.57 01/18/2025 9:35 AM CDT Plan of Treatment Upcoming Encounters Date Type Department Care Team (Late st Contact Info) Description 02/15/2025 9:15 AM CDT Office Visit [facility] - Orthopedic Surgery [address], [facility] [address] [place] [address] Shelby Arrieta, PA-C [address] [place] [address] [address] [place] [address] 03/01/2025 9:50 AM CDT Office Visit [facility] - Orthopedic Surgery [address] [place] [id number] Ai Helms, BARTENDER MANAGER-WALLCOVERING TEXTURER [address] [place] [address] Health Maintenance Due Date Last Done Comments BONE DENSITY TESTING 1935 DTAP/TDAP/TD VACCINES (1 - Tdap) 1956 PNEUMOCOCCAL VACCINE 50+ (1 of 1 - PCV) 10/23/1987 ZOSTER VACCINE (1 of 2) 10/23/1987 Respiratory Syncytial Virus (RSV) Vaccine Pt: or over 60 yrs (1 - 1-dose 75+ series) 2012 COVID-19 VACCINE (1 - 2023-2 5 season) 2024 MEDICARE AWV CALENDAR YEAR 2024 INFLUENZA VACCINE (#1) 2025 DEPRESSION SCREENING Completed 12/28/2024 HEPATITIS B VACCINE Aged Out No longe r eligible based on patient's age to complete this topic HIB VACCINE Aged Out No longer eligi ble based on patient's age to complete this topic HPV VACCINE Aged Out No longer eligi ble based on patient's age to complete this topic MENINGOCOCCAL (Group B) VACC INE SHARED DECISION-MAKING Aged Out No longer eligibl e based on patient's age to complete this topic MENINGOCOCCAL GROUPS A/C/Y/W VACCINE Aged Out No longer eligible b ased on patient's age to complete this topic Procedures Procedure Name Priority Date/Time Associated Diagnosis Comments XR SHOULDER RIGHT 2VW OR MORE Routine 01/18/2025 9:24 AM CDT Closed 3-part fracture of proximal humerus with routine healing, right XR SHOULDER RIGHT OUTSIDE Routine 12/16/2024 12:02 PM CDT XR SHOULDER RIGHT OUTSIDE Routine 12/16/2024 12:02 PM CDT from Last 3 Months Results * XR Shoulder Right 2Vw or More (01/18/2025 9:24 AM CDT) Anatomical Region Laterality Modality Upper Extremity Computed Radiogr aphy 01/18/2025 11:4 8 AM CDT Narrative 01/18/2025 11:56 AM CDT PROCEDURE: XR SHOULDER RIGHT 2VW OR MORE DATE/TIME OF EXAM: 01/18/2025 9:24 AM INDICATION: S42.291D: Closed 3-part fracture of proximal humerus with routine healing, right. Additional History: COMPARISON: None. FINDINGS: Three views of the right shoulder show the right humeral neck fracture with medial displacement of at least 1.42 cm. Calcified callus has yet to occur. There are hazy opacities in both lung clark. Follow-up should be performed as needed. Edited by Cely Beck on 01/18/2025 11:49 AM > Interpreting Provider: Martir Starkey MD on 01/18/2025 11:56 AM Procedure Note Martir Starkey MD - 01/18/2025 PROCEDURE: XR SHOULDER RIGHT 2VW OR MORE DATE/TIME OF EXAM: 01/18/2025 9:24 AM INDICATION: S42.291D: Closed 3-part fracture of proximal humerus with routine healing, right. Additional History: COMPARISON: None. FINDINGS: Three views of the right shoulder show the right humeral neck fracturewith medial displacement of at least 1.42 cm. Calcified callus has yet tooccur. There are hazy opacities in both lung clark. Follow-up should beperformed as needed. Edited by Cely Beck on 01/18/2025 11:49 AM > Interpreting Provider: Martir Starkey MD on 01/18/2025 11:56 AM Shelby Arrieta PA-C DIAGNOSTIC IMAGING ORDERABLE S Final Result * XR Shoulder Right Outside (12/16/2024 12:02 PM CDT) Only the most recent of2 resultswithin the time period is included. Narrative [facility] - 01/18/2025 12:02 PM CDT This is a study from an outside facility that has been uploaded into PACS. us Provider [facility] Final Result [facility] from Last 3 Months Insurance [employer] MEDICARE ADV Care Teams Supervisor [employer] Relationship Specialty Start Date End Date Sagar Corley PCP - General 12/25/24
--- NOTE | 2025-02-11 14:01 | ECHO_ITS ---
Patient Info Name: Pablo Isaac Age: 89 years : 1935 Gender: Male Ht: 70 in Wt: 220 lbs BSA: 2.25 m2 HR: 83 bpm BP: 139 / 81 mmHg Technical Quality: Good Exam Date: 02/11/2025 2:09 PM Patient Status: O Admit Date: 02/11/2025 Exam Type: CA echo doppler color flow Complete two-dimensional, color flow and Doppler transthoracic echocardiogram is performed. Oil Drilling Engineer: Jocelyn Clark Attending Provider: Sagar Corley Summary 1. Complete two-dimensional, color flow and Doppler transthoracic echocardiogram is performed. 2. There is normal biventricular size and systolic function. 3. There is mild concentric left ventricular hypertrophy. 4. There is moderate aortic stenosis. Aortic valve leaflets are not well visualized. 5. There is mild aortic regurgitation. Left Ventricle The left ventricle is normal in size and systolic function. There is mild concentric left ventricular hypertrophy. The left ventricular ejection fraction is visually estimated to be 60-65%. Right Ventricle The right ventricle is normal in size and systolic function. Left Atria The left atrium is normal size. Right Atria The right atrium is normal size. Atrial Septum The atrial septum is grossly intact. Aortic Valve The aortic valve leaflets are not well visualized but echo Doppler gradients across the valve suggests moderate aortic stenosis. There is mild aortic regurgitation. Pulmonic Valve The pulmonic valve is not well visualized. Mitral Valve The mitral valve leaflets are sclerotic. There is no mitral stenosis. There is trace mitral regurgitation. Tricuspid Valve The tricuspid valve is normal. There is trace tricuspid regurgitation. Pericardium/Pleural Pericardium is normal in appearance with no evidence for significant pericardial effusion. Inferior Vena Cava Dilated inferior vena cava with >50% collapse upon inspiration consistent with elevated right atrial pressure, 8 mmHg. Aorta The aortic root at the level of the sinus of Valsalva measures 3.4 cm in diameter. Left Ventricular Outflow Tract Name Value Normal LVOT 2D LVOT Diameter 2.0 cm LVOT Doppler LVOT Peak Velocity 144 cm/s LVOT Peak Gradient 4 mmHg LVOT Mean Gradient 2 mmHg LVOT VTI 38 cm LVOT VTI/AV VTI Ratio 0.5 LVOT Stroke Volume 118 ml LVOT CO 8.9 l/min LVOT CI 4.0 l/min/m2 Pulmonic Valve Name Value Normal RVOT Doppler RVOT Peak Velocity 85 cm/s RVOT Peak Gradient 3 mmHg PV Doppler PV Peak Velocity 129 cm/s PV Peak Gradient 7 mmHg Mitral Valve Name Value Normal MV Diastolic Function MV E Peak Velocity 99 cm/s MV A Peak Velocity 126 cm/s MV E/A 0.8 MV Decel Time (PW) 270 ms MV Annular TDI MV E/e' (Septal) 19.3 MV E/e' (Lateral) 12.0 MV E/e' (Average) 15.6 Tricuspid Valve Name Value Normal TV Regurgitation Doppler TR Peak Velocity 309 cm/s TR Peak Gradient 38 mmHg Estimated PAP/RSVP RA Pressure 8 mmHg <=5 PA Systolic Pressure 46 mmHg <36 RV Systolic Pressure 46 mmHg <36 Aortic Valve Name Value Normal AV Doppler AV Peak Velocity 365 cm/s AV Peak Gradient 52 mmHg AV Mean Gradient 32 mmHg AV VTI 80 cm AV Area (Cont Eq VTI) 1.5 cm2 >=3.0 AV Area (Cont Eq Gabino) 1.2 cm2 AV DI (Gabino) 0.39 AV Regurgitation 2D LVOT Area 3.1 cm2 Ventricles Name Value Normal LV Dimensions 2D/MM IVS Diastolic Thickness (2D) 1.0 cm 0.6-1.0 LVID Diastole (2D) 5.7 cm 4.2-5.8 LVIW Diastolic Thickness (2D) 1.2 cm 0.6-1.0 LVID Systole (2D) 3.4 cm 2.5-4.0 LVOT Diameter 2.0 cm LV Mass (2D Cubed) 263.11 g 88.00-224.00 LV Mass Index (2D Cubed) 117 g/m2 49-115 Relative Wall Thickness (2D) 0.44 <=0.42 LV Fractional Shortening/Ejection Fraction 2D/MM LV Fractional Shortening (2D) 39 % 25-43 LV EF (2D Teichholz) 69 % LV Diastolic Volume (4C MOD) 114 ml LV EF (4C MOD) 63 % LV Diastolic Volume (2C MOD) 97 ml LV EF (2C MOD) 53 % LV Diastolic Volume (BP MOD) 110 ml 62-150 LV Diastolic Volume Index (BP MOD) 49 ml/m2 34-74 LV Systolic Volume (BP MOD) 45 ml 21-61 LV Systolic Volume Index (BP MOD) 20 ml/m2 11-31 LV EF (BP MOD) 59 % 52-72 LV Diastolic Length (4C) 8.4 cm LV Systolic Length (4C) 6.7 cm LV Stroke Volume (4C MOD) 72 ml Atria Name Value Normal LA Dimensions LA Volume (4C A-L) 61 ml LA Volume (BP A-L) 64 ml RA Dimensions RA Systolic Major [place] Length (4C) 6.1 cm 2.1-2.7 RA Area (4C) 17.5 cm2 <=18.0 Report Signatures
== END 2025-02-11 13:39 | disposition home or self-care (01) ==
PROVIDERS: PCP Student in an Organized Health Care Education/Training Program; Visit Provider Student in an Organized Health Care Education/Training Program
DX: R93.1 Abnormal findings on diagnostic imaging of heart and coronary circulation (principal); R06.00 Dyspnea, unspecified; M79.89 Other specified soft tissue disorders; R63.5 Abnormal weight gain; R01.1 Cardiac murmur, unspecified
CPT/HCPCS: 93306

== ENCOUNTER 2025-03-15 06:49 | Day surgery (SDC) | payer MEDICARE, SELFPAY ==
[2025-02-25 09:30] VITALS: BMI 31.6
--- NOTE | ~2025-03-15 | XR_ITS ---
EXAM: XR fluoroscopy no charge - 03/15/2025 8:05 CDT History: 89 years old Male with DIAG/PROG LEFT GENICULAR NERVE BLK,VASTUS INTERMEDIUS NER Fluoroscopy time: 61 seconds FINDINGS/ IMPRESSION: Multiple images of nerve blocks. Reviewed, dictated and finalized at location A.
--- OUTSIDE RECORDS SUMMARY | 2025-03-15 07:03 | XMS_ITS | Clinical Summary ---
Author Organization [facility] Address [address] [place] [address] Care Team Providers Care Regulatory Submissions Associate Name Role Phone JorySagar Primary Care Provider Unavailabl e Source Comments [facility],non-owned Affiliates and Associated Physician Practices is amultiple site organization consisting of ambulatory clinics and hospital sitesin [place], [place], [place] and [place]. This disclosure is being madepursuant to the Care Everywhere program and may not contain all information available regarding this patient. Last updated 18.[facility] Allergies Active Allergy Reactions Criticality Noted Date Comments Acetaminophen-Codeine Rash Medium 12/16/2024 Hydrocodone-Acetaminophen Nausea and/or Vomiting 12/16/2024 Yslhkxss-Csznwpjp-Gb Rash Medium 12/16/2024 Medications * Be aware that medications may not be up to date on this document. Alwaysverify current medications with the patient. amoxicillin (Amoxil) 500 MG capsule 03/05/20 24 Active doxazosin (Cardura) 8 MG tablet Take 1 (one) tablet by mouth once daily 11/26/19 25 Active fluticasone propionate (Flonase) 50 MCG/ACT nasal spray 2 (two) sprays 10/22/19 25 Active Multiple Vitamins-[place] als (PreserVision AREDS 2) capsule Take 2 (two) capsules by mouth 2 times daily Active diclofenac sodium (Voltaren) 1 % gel Apply to affected area 4 times daily Active acetaminophen (Tylenol) 500 MG tablet Take 1 (one) tablet by mouth every 4 hours as needed for Fever or Pain Maximum allowable Acetaminophen amount = 4 Grams (4000 mg) / 24 hours. Active B Zjvoufh-E-Kxsn c Acid (vitamin B complex with C) Take by mouth once daily Active VITAMIN D-VITAMIN K PO Activ e carboxymethylc ellulose 1 % ophthalmic gel Activ e magnesium 30 MG tablet Take 1 (one) tablet by mouth once daily Active bisacodyl EC 5 MG tablet Take 1 (one) tablet by mouth once as needed for Constipation Active oxyCODONE, immediate release, (Roxicodone) 5 MG tablet Take 1 (one) tablet by mouth every 6 hours as needed 12/17/19 25 025 Discontin ued(List Clean-Up) potassium chloride ER (Micro-K) 10 MEQ capsule Take 1 (one) capsule by mouth once daily 01/13/20 25 025 Discontin ued(List Clean-Up) furosemide (Lasix) 20 MG tablet Take 1 (one) tablet by mouth every morning 01/13/20 25 025 Discontin ued(List Clean-Up) Active Problems Problem Noted Date Diagnosed Date Obesity, unspecified 01/26/2025 Pain in left knee 01/26/2025 Pain in unspecified foot 01/26/2025 Pain, unspecified 01/26/2025 Unilateral primary osteoarthritis, left knee 07/2024 Encounters Date Type Department Care Team Description 03/04/2025 Results Follow-Up [facility] - Orthopedic Surgery [address] [place] [address] Ai Helms APRN-DENIS 03/01/2025 3:01 PM CDT - 03/01/2025 11:59 PM CDT Hospital Encounter [facility] - Outside Imaging Discharge Disposition: Home or Self Care 03/01/2025 9:50 AM CDT Office Visit [facility] - Orthopedic Surgery [address] [place] [address] Ai Helms, TWENTY ONE DEALER-INFANT TEACHER Age-related osteoporosis with current pathological fracture, initial encounter (Primary Dx); Closed 3-part fracture of proximal humerus with routine healing, right 03/01/2025 Travel 02/15/2025 9:15 AM CDT Office Visit [facility] - Orthopedic Surgery [address] [place] [phone] Shelby Arrieta PA-C Closed 3-part fracture of proximal humerus with routine healing, right (Primary Dx); Age-related osteoporosis with current pathological fracture with routine healing, subsequent encounter 02/15/2025 9:07 AM CDT - 02/15/2025 11:59 PM CDT Hospital Encounter [facility] - Radiology [address] [address] Shelby Arrieta PA-C Discharge Disposition: Home or Self Care 02/15/2025 Travel 02/11/2025 Travel 02/08/2025 Orders Only [facility] - Orthopedic Surgery [address], [address] [place] [phone] Shelby Arrieta PA-C Closed 3-part fracture of proximal humerus with routine healing, right 01/26/2025 Telephone [facility] - Orthopedic Surgery [address], [address] [place] [phone] Shelby Arrieta PA-C Results (Bone Dexa and Referral ) 01/26/2025 Telephone [facility] - Orthopedic Surgery [address], [address] [place] [address] Shelby Arrieta PA-C Erroneous encounter-disregard 01/25/2025 Telephone [facility] - Orthopedic Surgery [address], [address] [place] [phone] Shelby Arrieta PA-C Results 01/18/2025 11:59 AM CDT - 01/18/2025 11:59 PM CDT Hospital Encounter [facility] - Outside Imaging Discharge Disposition: Home or Self Care 01/18/2025 11:59 AM CDT - 01/18/2025 11:59 PM CDT Hospital Encounter [facility] - Outside Imaging Discharge Disposition: Home or Self Care 01/18/2025 9:30 AM CDT Office Visit [facility] - Orthopedic Surgery [address], [address] [place] [phone] Shelby Arrieta PA-C Closed 3-part fracture of proximal humerus with routine healing, right (Primary Dx) 01/18/2025 9:15 AM CDT - 01/18/2025 11:58 AM CDT Hospital Encounter [facility] - Radiology [address] [address] Shelby Arrieta PA-C Discharge Disposition: Home or Self Care 01/18/2025 Telephone [facility] - Orthopedic Surgery [address], [address] [place] [address] Shelby Arrieta PA-C Order Information Change 01/18/2025 Telephone [facility] - Orthopedic Surgery [address], [address] [place] [address] Shelby Arrieta PA-C Imaging 01/18/2025 Orders Only [facility] - Orthopedic Surgery [address], [address] [place] [address] Shelby Arrieta PA-C 01/18/2025 Travel 01/08/2025 Telephone [facility] - Orthopedics [address] [place] [address] Rosaura Rey RN Order 01/08/2025 Orders Only [facility] - Orthopedic Surgery [address], [address] [place] [address] Shelby Arrieta PA-C Closed 3-part fracture of proximal humerus with routine healing, right 12/28/2024 11:10 AM CDT Office Visit [facility] - Orthopedic Surgery [address], [address] [place] [address] Oliver Colby MD Closed 3-part fracture of proximal humerus with routine healing, right (Primary Dx); Age-related osteoporosis with current pathological fracture, initial encounter 12/28/2024 Travel 12/25/2024 Orders Only [facility] - Orthopedic Surgery [address] [place] [address] Oliver Colby MD Pain of right [...] - Inhaled Oxygen Concentration - - Weight 102.5 kg (225 lb 14.4 oz) 03/01/2025 9:49 AM CDT Height 177.8 cm (5' 10) 03/01/2025 9:49 AM CDT Body Mass Index 32.41 03/01/2025 9:49 AM CDT Plan of Treatment Upcoming Encounters Date Type Department Care Team (Late st Contact Info) Description 03/22/2025 9:30 AM CDT Office Visit [facility] - Orthopedic Surgery [address], [facility] [address] [place] [address] Shelby Arrieta PAAllyssaC [address] [place] [address] [address] [place] [phone] Health Maintenance Due Date Last Done Comments BONE DENSITY TESTING 1937 DTAP/TDAP/TD VACCINES (1 - Tdap) 1956 PNEUMOCOCCAL VACCINE 50+ (1 of 1 - PCV) 10/23/1987 ZOSTER VACCINE (1 of 2) 10/23/1987 Respiratory Syncytial Virus (RSV) Vaccine Pt: or over 60 yrs (1 - 1-dose 75+ series) 2012 COVID-19 VACCINE ( - 2023-2 5 season) 2024 MEDICARE AWV [...] Procedure Name Priority Date/Time Associated Diagnosis Comments PHOSPHORUS BLOOD Routine 03/03/2025 7:02 AM CDT Age-related osteoporosis with current pathological fracture, initial encounter Closed 3-part fracture of proximal humerus with routine healing, right MAGNESIUM BLOOD Routine 03/03/2025 7:02 AM CDT Age-related osteoporosis with current pathological fracture, initial encounter Closed 3-part fracture of proximal humerus with routine healing, right VITAMIN D 25-HYDROXY Routine 03/03/2025 7:02 AM CDT Age-related osteoporosis with current pathological fracture, initial encounter Closed 3-part fracture of proximal humerus with routine healing, right TSH Routine 03/03/2025 7:02 AM CDT Age-related osteoporosis with current pathological fracture, initial encounter Closed 3-part fracture of proximal humerus with routine healing, right PTH INTACT Routine 03/03/2025 7:02 AM CDT Age-related osteoporosis with current pathological fracture, initial encounter Closed 3-part fracture of proximal humerus with routine healing, right COMPREHENSIVE METABOLIC PANEL Routine 03/03/2025 7:02 AM CDT Age-related osteoporosis with current pathological fracture, initial encounter Closed 3-part fracture of proximal humerus with routine healing, right CBC W AUTO DIFFERENTIAL Routine 03/03/2025 7:02 AM CDT Age-related osteoporosis with current pathological fracture, initial encounter Closed 3-part fracture of proximal humerus with routine healing, right XR SHOULDER RIGHT 2VW OR MORE Routine 02/15/2025 9:13 AM CDT Closed 3-part fracture of proximal humerus with routine healing, right DEXA BONE DENSITY OUTSIDE Routine 01/20/2025 3:10 PM CDT IMAGING/RADIOLOGY/XRA Y RESULTS ORDER 01/20/2025 XR SHOULDER RIGHT 2VW OR MORE Routine 01/18/2025 9:24 AM CDT Closed 3-part fracture of proximal humerus with routine healing, right XR SHOULDER RIGHT OUTSIDE Routine 12/16/2024 12:02 PM CDT XR SHOULDER RIGHT OUTSIDE Routine 12/16/2024 12:02 PM CDT from Last 3 Months Results * PTH INTACT (03/03/2025 7:02 AM CDT) PTH Intact 50 16 - 77 pg/mL STEPHANIE Comment: Interpretive Guide Intact PTH Calcium ------- Normal Parathyroid Normal Normal Hypoparathyroidism Low or Low Normal Low Hyperparathyroidism Primary Normal or High High Secondary High Normal or Low Tertiary High High Non-Parathyroid Hypercalcemia Low or Low Normal High Test Performed at: [facility] [id number] [place] [phone] ANTONIETA SPICER MD Blood BLOOD SPECIMEN / Unknown 03/03/2025 7:02 AM CDT 03/03/2025 7:02 AM CDT us Ai Helms TWENTY ONE DEALER-INFANT TEACHER LAB - CHEMISTRY ORDERAB LES Final Result [facility] [address] [place] [address] * VITAMIN D 25-HYDROXY (03/03/2025 7:02 AM CDT) Pathologist [facility] Vitamin D, 25 Hydroxy 35 30 - 100 ng/mL STEPHANIE Comment: Vitamin D Status 25-OH Vitamin D: Deficiency: <20 ng/mL Insufficiency: 20 - 29 ng/mL Optimal: > or = 30 ng/mL For 25-OH Vitamin D testing on patients on D2-supplementation and patients for whom quantitation of D2 and D3 fractions is required, the QuestAssureD(TM) 25-OH VIT D, (D2,D3), LC/MS/MS is recommended: order code 54233 (patients >2yrs). See Note 1 Note 1 For additional information, please refer to http://education.[employer].Anywhere to Go/faq/OHM670 (This link is being provided for informational/ educational purposes only.) Test Performed at: [facility] [address] [place] [address] ANTONIETA SPICER MD Blood BLOOD SPECIMEN / Unknown 03/03/2025 7:02 AM CDT 03/03/2025 7:02 AM CDT us Ai Helms TWENTY ONE DEALER-INFANT TEACHER LAB - CHEMISTRY ORDERAB LES Final Result [facility] [address] [place] [address] * (ABNORMAL) CBC WITH DIFFERENTIAL (03/03/2025 7:02 AM CDT) White Blood Cell Count 6.3 3.8 - 10.8 Thousand/ uL [facility] RBC 4.41 4.20 - 5.80 Million/u L [facility] Hemoglobin 14.4 13.2 - 17.1 g/dL [facility] Hematocrit 44.9 38.5 - 50.0 % [facility] MCV 101.8(H) 80.0 - 100.0 fL [facility] MCH 32.7 27.0 - 33.0 pg [facility] MCHC 32.1 32.0 - 36.0 g/dL [facility] Comment: For adults, a slight decrease in the calculated MCHC value (in the range of 30 to 32 g/dL) is most likely not clinically significant; however, it should be interpreted with caution in correlation with other red cell parameters and the patient's clinical condition. RDW 11.9 11.0 - 15.0 % [facility] Platelet Count 156 140 - 400 Thousand/ uL [facility] MPV 10.7 7.5 - 12.5 fL [facility] Neutrophil Absolute 3711 1500 - 7800 cells/uL [facility] Lymphocytes Absolute 1638 850 - 3900 cells/uL [facility] Absolute Monocytes 643 200 - 950 cells/uL [facility] Eosinophils Absolute 239 15 - 500 cells/uL [facility] Basophils Absolute 69 0 - 200 cells/uL [facility] Granulocytes % 58.9 % [facility] Lymphocytes % 26.0 % [facility] Monocytes % 10.2 % [facility] Eosinophils % 3.8 % [facility] Basophils % 1.1 % [facility] Comment: Test Performed at: [facility] [address] [place] [address] ANTONIETA SPICER MD Blood BLOOD SPECIMEN / Unknown 03/03/2025 7:02 AM CDT 03/03/2025 7:02 AM CDT us Ai Helms TWENTY ONE DEALER-INFANT TEACHER LAB - HEMATOLOGY ORDERA BLES Final Result [facility] [address] [place] [address] * COMPREHENSIVE METABOLIC PANEL (03/03/2025 7:02 AM CDT) Glucose 90 65 - 99 mg/dL [facility] Comment: Fasting reference interval BUN 20 7 - 25 mg/dL [facility] Creatinine 0.79 0.70 - 1.22 mg/dL [facility] eGFR by Cystatin C 86 > OR = 60 mL/min/1. 73m2 [facility] BUN/Creatinine Ratio SEE NOTE: 6 - 22 (calc) [facility] Comment: Not Reported: BUN and Creatinine are within reference range. Sodium 141 135 - 146 mmol/L [facility] Potassium 4.2 3.5 - 5.3 mmol/L [facility] Chloride 105 98 - 110 mmol/L [facility] CO2 27 20 - 32 mmol/L [facility] Calcium 8.9 8.6 - 10.3 mg/dL [facility] Protein Total 6.3 6.1 - 8.1 g/dL [facility] Albumin 4.0 3.6 - 5.1 g/dL [facility] Globulin Total 2.3 1.9 - 3.7 g/dL (calc) [facility] Albumin/Globulin Ratio 1.7 1.0 - 2.5 (calc) [facility] Bilirubin Total 0.9 0.2 - 1.2 mg/dL [facility] Alkaline Phosphatase 82 35 - 144 U/L [facility] AST 14 10 - 35 U/L [facility] ALT 10 9 - 46 U/L [facility] Comment: Test Performed at: [facility] [address] [place] [address] ANTONIETA SPICER MD Blood BLOOD SPECIMEN / Unknown 03/03/2025 7:02 AM CDT 03/03/2025 7:02 AM CDT Ai Helms APRN-[facility] LAB - CHEMISTRY ORDERAB LES Final Result Performing Organization Address City/[facility]/ZIP Co de Phone Number [place] [phone] * PHOSPHORUS BLOOD (03/03/2025 7:02 AM CDT) Phosphorus 2.9 2.1 - 4.3 mg/dL [facility] Comment: Test Performed at: [facility] [place] [address] ANTONIETA SPICER MD Blood BLOOD SPECIMEN / Unknown 03/03/2025 7:02 AM CDT 03/03/2025 7:02 AM CDT Ai Helms APRN-[facility] LAB - CHEMISTRY ORDERAB LES Final Result Performing Organization Address [facility]/[place] [address] * MAGNESIUM BLOOD (03/03/2025 7:02 AM CDT) Pathologist [facility] Magnesium 2.1 1.5 - 2.5 mg/dL [facility] Comment: Test Performed at: [facility] [place] [address] ANTONIETA SPICER MD Blood BLOOD SPECIMEN / Unknown 03/03/2025 7:02 AM CDT 03/03/2025 7:02 AM CDT Ai Helms APRN-[facility] LAB - CHEMISTRY ORDERAB LES Final Result Performing Organization Address City/[facility]/[place] [address] * TSH (03/03/2025 7:02 AM CDT) TSH 0.54 0.40 - 4.50 mIU/L [facility] Comment: Test Performed at: [facility] [address] [place] [address] ANTONIETA SPICER MD Blood BLOOD SPECIMEN / Unknown 03/03/2025 7:02 AM CDT 03/03/2025 7:02 AM CDT us Ai Helms TWENTY ONE DEALER-INFANT TEACHER LAB - CHEMISTRY ORDERAB LES Final Result [facility] [address] [place] [address] * XR Shoulder Right 2Vw or More (02/15/2025 9:13 AM CDT) Only the most recent of2 resultswithin the time period is included. Anatomical Region Laterality Modality Upper Extremity Computed Radiogr aphy 02/16/2025 1:52 PM CDT Narrative 02/16/2025 2:42 PM CDT PROCEDURE: XR SHOULDER RIGHT 2VW OR MORE DATE/TIME OF EXAM: 02/15/2025 9:13 AM CLINICAL INFORMATION: None relevant/not provided if blank. Indication: S42.291D: Closed 3-part fracture of proximal humerus with routine healing, right Additional History: COMPARISON: 01/18/2025 FINDINGS: Three views of the right shoulder show a comminuted proximal humeral fracture with displacement unchanged in position and alignment. Continued follow-up recommended. Opacities are seen in the right lung. Edited by Yanci Stevenson on 02/16/2025 1:53 PM > Interpreting Provider: Martir Starkey MD on 02/16/2025 2:42 PM Procedure Note Martir Starkey MD - 02/16/2025 PROCEDURE: XR SHOULDER RIGHT 2VW OR MORE DATE/TIME OF EXAM: 02/15/2025 9:13 AM CLINICAL INFORMATION: None relevant/not provided if blank. Indication: S42.291D: Closed 3-part fracture of proximal humerus with routine healing, right Additional History: COMPARISON: 01/18/2025 FINDINGS: Three views of the right shoulder show a comminuted proximal humeral fracture with displacement unchanged in position and alignment.Continued follow-up recommended. Opacities are seen in the right lung. Edited by Yanci Stevenson on 02/16/2025 1:53 PM > Interpreting Provider: Martir Starkey MD on 02/16/2025 2:42 PM us Shelby Arrieta PA-C DIAGNOSTIC IMAGING ORDERABLE S Final Result * Dexa Bone Density Outside (01/20/2025 3:10 PM CDT) Narrative [facility] - 03/01/2025 3:10 PM CDT This is a study from an outside facility that has been uploaded into PACS. us Provider [facility] IM[facility]ING Final Result [facility] [address] [place] [address] * IMAGING/RADIOLOGY/XRAY RESULTS ORDER (01/20/2025) Anatomical Region Laterality Modality Other 01/20/2025 Narrative 01/20/2025 Ordered by an unspecified provider. us Scanned Document IMAGING Final Result * XR Shoulder Right Outside (12/16/2024 12:02 PM CDT) Only the most recent of2 resultswithin the time period is included. Narrative [facility] - 01/18/2025 12:02 PM CDT This is a study from an outside facility that has been uploaded into PACS. us Provider [facility] IMAGING Final Result [facility] from Last 3 Months Insurance [employer] MEDICARE ADV Care Teams Regulatory Submissions Associate Relationship Specialty Start Date End Date Sagar Corley PCP - General 12/25/24
--- OUTSIDE RECORDS SUMMARY | 2025-03-15 07:03 | XMS_ITS | Encounter Summary ---
Author Organization [facility] Address [address] [facility] [place] [address] Care Team Providers Care Tallow Refiner Name Role Phone Sagar Corley Primary Care Provider Corey e Encounter Details Date Type Department Care Team (Late Contact Info) Description 03/04/2025 Results Follow-Up [facility] - Orthopedic Surgery [address] [place] [address] Ai Helms, PLATFORM MAN-HAND WEAVER [address] [place] [phone] Social History Tobacco Use Types Packs/Day Years [...] Encounters Date Type Department Care Team (Late Contact Info) Description 03/22/2025 9:30 AM CDT [facility] [address], [address] [phone] Shelby Arrieta, PA-C [address] [place] [address] documented as of this encounter Visit Diagnoses Not on filedocumented in this encounter Care Teams Tallow Refiner Relationship Specialty Start Date End Date Sagar Corley PCP - General 12/25/24 documented as of this encounter
[2025-03-15 07:30] VITALS: BP 136/79; PULSE 70; RESP 16; TEMP 36.7; O2SAT 100
--- NOTE | 2025-03-15 07:53 | WPDHPUPDATE1 ---
History and Physical Update Update Date/Time: 03/15/25 07:53 History and Physical has been reviewed, including an updated exam of the patient. There are NO changes in the patient's condition. Risks, benefits, and alternatives have been discussed and questions answered. Patient agrees to proceed with procedure.
--- NOTE | 2025-03-15 07:54 | W.PM.PROC2 ---
Procedure Note - Detailed Date of Procedure 03/15/25 Pre-op Diagnosis Bilateral Knee Osteoarthritis, Arthralgia bilateral knee, chronc pain Post-op Diagnosis Same Procedure Performed Diagnostic Blockade of the LEFT Superior Medial, Inferior Medial and Superior Lateral Genicular Nerves, Vastus Intermedius nerve under Fluoroscopic Guidance (4 nerves blocked). Surgeon Stanford Low MD Anesthesia Local Description of Procedure INFORMED CONSENT: Risks, benefits and alternatives to the procedure were discussed in detail with the patient who expressed explicit understanding and consent to proceed. Patient was informed verbally and in written form regarding the risks associated with the procedure including the low risk of serious infection, bleeding/bruising, allergic reaction, nerve injury, paralysis, procedural site pain or discomfort, worsening pain and/or mobility, failure to treat and disfigurement. The patient expressed explicit understanding and consent to proceed. All materials required for the procedure were available prior to procedure start. Site and side was marked prior to procedure and confirmed in the presence of the patient. PROCEDURE IN DETAIL: The patient was brought to the procedural suite and placed in the supine position. Patient was made comfortable with use of pillows under the head/shoulder, knees and ankles. Skin overlying anterior, medial and lateral surface of the knee joint on the left side was prepared broadly with ChloraPrep applicator and draped in a sterile manner. Aseptic technique was used throughout. The intersection between the femoral shaft and the medial femoral condyle, lateral femoral condyle and between the medial tibial plateau and tibial shaft were visualized in the AP view, as well as the line bisecting the femur and perpendicular to the short axis of the joint space 6cm proximal to the superior border of the patella with the knee partially flexed at 120 degrees. Local anesthesia was established by infiltration with approximately 3 mL of 2% lidocaine via a 1-1/2 inch 27-gauge needle at the skin and soft tissues overlying each site. A 25-gauge 3.5 inch quincke spinal needle was advanced until the needle tip contacted periosteum at each location, and was then walked off medially to approximate the position of the Superior and Inferior Medial Genicular nerves or laterally to approximate the position of the Superior Lateral Genicular nerve, and just superficial to femoral periosteum 6cm proximal to the patella to block the Vastus intermedius nerve. Needle depth was verified in the lateral view revealing appropriate needle positioning at each location. 0.5ml of IsoVue 300M contrast medium was injected at each site confirming appropriate perineural spread of contrast without evidence of intravascular or intra-articular spread. After repeat negative aspiration, 0.5-1.0ml of 0.5% PF Bupivacaine was injected at each site to block the respective nerves. Needle was removed completely intact without difficulty. Images were saved and documented in the patient chart. Patient's skin was cleansed and sterile bandage applied. The patient tolerated the procedure well. The patient was transported to the recovery area in stable condition where they were observed for an appropriate amount of time prior to discharge, without evidence of complication. Patient was instructed on the appropriate completion of a pain diary over the next 12-24 hours. The patient was instructed to avoid excessive activity for the next 48 hours, including climbing and frequent use of stairs. Showers only for 48 hours. They were instructed not to drive or operate heavy machinery for 24 hours. They are to monitor for severe headaches, fevers, chills, night sweats, erythema/swelling at the site or any other signs of infection, bleeding/bruising, bowel or bladder changes as well as new pain, weakness or numbness in the upper or lower extremity. Should they notice these changes, they are instructed to call our office immediately or report directly to the nearest Emergency Department if no answer or if after posted office hours. CONTRAST WASTED: 13 mL IsoVue 300M. Complications No immediate complications Condition Stable Disposition Same day [facility] Billing Surgery - Charge Forward: Surgery Billing
[2025-03-15 08:10] VITALS: BP 135/71; PULSE 80; RESP 18; O2SAT 96
[2025-03-15] MEDS: LIDOCAINE 1% PF INJ 5 ML VIAL INFILTRATE (08:13)
[2025-03-15] MEDS: BUPivacaine HCL 0.5% 10 ML AMP INFILTRATE (08:14)
[2025-03-15 08:17] VITALS: BP 150/72; PULSE 81; RESP 13; O2SAT 96
[2025-03-15 08:30] VITALS: BP 136/71; PULSE 77; RESP 16; O2SAT 100
== END 2025-03-15 08:36 | disposition home or self-care (01) ==
PROVIDERS: PCP Student in an Organized Health Care Education/Training Program; Visit Provider Anesthesiology Pain Medicine
PROC: (CPT 64454; principal; 2025-03-15 07:50)
DX: M17.0 Bilateral primary osteoarthritis of knee (principal); M25.562 Pain in left knee; M25.561 Pain in right knee; G89.29 Other chronic pain
CPT/HCPCS: 64454; 99199

== ENCOUNTER 2025-04-06 12:53 | Day surgery (SDC) | payer MEDICARE, SELFPAY ==
[2025-04-01 10:54] VITALS: BMI 35.6
--- NOTE | ~2025-04-06 | XR_ITS ---
EXAMINATION: XR fluoroscopy no charge DATE: 04/06/2025 14:49 INDICATION: Left knee genicular nerve block TECHNIQUE: 8 fluoroscopic images of the left knee were obtained during procedure performed by Dr. Low. Radiologist was not present for the imaging or procedure. The amount of fluoroscopy time used during this procedure was 1.0 minutes. Total radiation dose was 3.0 mGy. COMPARISON: None. FINDINGS: Images demonstrate a small spinal needles contrast position with distal tips and minimal amount of injected contrast along the anterior, medial and lateral metaphyseal regions of the distal femur and on the medial metaphyseal region of the proximal tibia. There is severe joint space narrowing and prominent marginal osteophytes at the patellofemoral compartment. IMPRESSION: 1. Fluoroscopy was utilized during pain management procedure the left knee. See procedure note for further detail. Reviewed, dictated and finalized at location A.
--- NOTE | 2025-04-06 12:13 | WPDHPUPDATE1 ---
History and Physical Update Update Date/Time: 04/06/25 12:13 History and Physical has been reviewed, including an updated exam of the patient. There are NO changes in the patient's condition. Risks, benefits, and alternatives have been discussed and questions answered. Patient agrees to proceed with procedure.
--- NOTE | 2025-04-06 12:14 | P.OP_ITS ---
Procedure Note - Detailed Date of Procedure 04/06/25 Pre-op Diagnosis Primary Osteoarthritis Bilateral Knee Post-op Diagnosis Same Procedure Performed Diagnostic Blockade of the left Superior Medial, Inferior Medial and Superior Lateral Genicular Nerves, Vastus Intermedius nerve under Fluoroscopic Guidance (4 nerves blocked). Surgeon Stanford Low MD Anesthesia Local Description of Procedure INFORMED CONSENT: Risks, benefits and alternatives to the procedure were discussed in detail with the patient who expressed explicit understanding and consent to proceed. Patient was informed verbally and in written form regarding the risks associated with the procedure including the low risk of serious infection, bleeding/bruising, allergic reaction, nerve injury, paralysis, procedural site pain or discomfort, worsening pain and/or mobility, failure to treat and disfigurement. The patient expressed explicit understanding and consent to proceed. All materials required for the procedure were available prior to procedure start. Site and side was marked prior to procedure and confirmed in the presence of the patient. PROCEDURE IN DETAIL: The patient was brought to the procedural suite and placed in the supine position. Patient was made comfortable with use of pillows under the head/shoulder, knees and ankles. Skin overlying anterior, medial and lateral surface of the knee joint on the left side was prepared broadly with ChloraPrep applicator and draped in a sterile manner. Aseptic technique was used throughout. The intersection between the femoral shaft and the medial femoral condyle, lateral femoral condyle and between the medial tibial plateau and tibial shaft were visualized in the AP view, as well as the line bisecting the femur and perpendicular to the short axis of the joint space 6cm proximal to the superior border of the patella with the knee partially flexed at 120 degrees. Local anesthesia was established by infiltration with approximately 3 mL of 2% lidocaine via a 1-1/2 inch 27-gauge needle at the skin and soft tissues overlying each site. A 25-gauge 3.5 inch quincke spinal needle was advanced until the needle tip contacted periosteum at each location, and was then walked off medially to approximate the position of the Superior and Inferior Medial Genicular nerves or laterally to approximate the position of the Superior Lateral Genicular nerve, and just superficial to femoral periosteum 6cm proximal to the patella to block the Vastus intermedius nerve. Needle depth was verified in the lateral view revealing appropriate needle positioning at each location. 0.5ml of IsoVue 300M contrast medium was injected at each site confirming appropriate perineural spread of contrast without evidence of intravascular or intra-articular spread. After repeat negative aspiration, 0.5-1.0ml of 2.0% PF lidocaine was injected at each site to block the respective nerves. Needle was removed completely intact without difficulty. Images were saved and documented in the patient chart. Patient's skin was cleansed and sterile bandage applied. The patient tolerated the procedure well. The patient was transported to the recovery area in stable condition where they were observed for an appropriate amount of time prior to discharge, without evid ence of complication. Patient was instructed on the appropriate completion of a pain diary over the next 12-24 hours. The patient was instructed to avoid excessive activity for the next 48 hours, including climbing and frequent use of stairs. Showers only for 48 hours. They were instructed not to drive or operate heavy machinery for 24 hours. They are to monitor for severe headaches, fevers, chills, night sweats, erythema/swelling at the site or any other signs of infection, bleeding/bruising, bowel or bladder changes as well as new pain, weakness or numbness in the upper or lower extremity. Should they notice these changes, they are instructed to call our office immediately or report directly to the nearest Emergency Department if no answer or if after posted office hours. CONTRAST WASTED: 13 mL IsoVue 300M. Complications No immediate complications Condition Stable Disposition Same day [facility] Billing Surgery - Charge Forward: Surgery Billing
[2025-04-06 13:17] VITALS: BP 148/75; PULSE 81; RESP 18; TEMP 37.4; O2SAT 98
--- OUTSIDE RECORDS SUMMARY | 2025-04-06 14:13 | XMS_ITS | Clinical Summary ---
Author Organization [facility] Address [address] [place] [address] Care Team Providers Care Sane Rn Name Role Phone JorySagar Primary Care Provider Unavailabl e Source Comments [facility],non-owned Affiliates and Associated Physician Practices is amultiple site organization consisting of ambulatory clinics and hospital sitesin [place], [place], [place] and [place]. This disclosure is being madepursuant to the Care Everywhere program and may not contain all information available regarding this patient. Last updated 18.[facility] Allergies Active Allergy Reactions Criticality Noted Date Comments Acetaminophen-Codeine Rash Medium 12/16/2024 Aminoglycosides Swelling Low 03/15/2025 Atropine Itching 03/15/2025 Hydrocodone-Acetaminophen Nausea and/or Vomiting 12/16/2024 Putfdwvh-Obybwuyy-Ry Rash Medium 12/16/2024 Medications * Be aware that medications may not be up to date on this document. Alwaysverify current medications with the patient. amoxicillin (Amoxil) 500 MG capsule 4 Active doxazosin (Cardura) 8 MG tablet Take 1 (one) tablet by mouth once daily 5 Active fluticasone propionate (Flonase) 50 MCG/ACT nasal spray 2 (two) sprays 5 Active Multiple Vitamins-Water/Wastewater Engineer als (PreserVision AREDS 2) capsule Take 2 (two) capsules by mouth 2 times daily Active diclofenac sodium (Voltaren) 1 % gel Apply to affected area 4 times daily Active acetaminophen (Tylenol) 500 MG tablet Take 1 (one) tablet by mouth every 4 hours as needed for Fever or Pain Maximum allowable Acetaminophen amount = 4 Grams (4000 mg) / 24 hours. Active B Hkwidtw-G-Rmji c Acid (vitamin B complex with C) Take by mouth once daily Active VITAMIN D-VITAMIN K PO Activ e carboxymethylc ellulose 1 % ophthalmic gel Activ e magnesium 30 MG tablet Take 1 (one) tablet by mouth once daily Active bisacodyl EC 5 MG tablet Take 1 (one) tablet by mouth once as needed for Constipation Active calcium carbonate (Tums) 500 MG chew tablet Take 1 (one) tablet by mouth daily with food (chew and swallow) Active Cholecalcifero l (Vitamin D) 50 MCG (1999 UT) capsule Take 1 (one) capsule by mouth once daily Active Active Problems Problem Noted Date Diagnosed Date Obesity, unspecified 01/26/2025 Pain in left knee 01/26/2025 Pain in unspecified foot 01/26/2025 Pain, unspecified 01/26/2025 Unilateral primary osteoarthritis, left knee 07/2024 Encounters Date Type Department Care Team Description 03/22/2025 9:30 AM CDT Office Visit [facility] - Orthopedic Surgery [address] [place] [phone] Shelby Arrieta PA-C Closed 3-part fracture of proximal humerus with routine healing, right (Primary Dx); Age-related osteoporosis with current pathological fracture with routine healing, subsequent encounter 03/22/2025 9:22 AM CDT - 03/22/2025 10:10 AM CDT Hospital Encounter [facility] - Radiology [address] [phone] Shelby Arrieta PA-C Discharge Disposition: Home or Self Care 03/22/2025 Travel 03/19/2025 Orders Only [facility] - Orthopedic Surgery [address] [phone] Shelby Arrieta PA-C Closed 3-part fracture of proximal humerus with routine healing, right 03/04/2025 Results Follow-Up [facility] - Orthopedic Surgery [address] [place] [address] Ai Helms, PLATING AND POINT ASSEMBLY SUPERVISOR-MULTICUT LINE OPERATOR 03/01/2025 3:01 PM CDT - 03/01/2025 11:59 PM CDT Hospital Encounter [facility] - Outside Imaging Discharge Disposition: Home or Self Care 03/01/2025 9:50 AM CDT [facility] [address] [place] [address] Ai Helms, PLATING AND POINT ASSEMBLY SUPERVISOR-DENIS Age-related osteoporosis with current pathological fracture, initial encounter (Primary Dx); Closed 3-part fracture of proximal humerus with routine healing, right 03/01/2025 Travel 02/15/2025 9:15 AM CDT Office Visit [facility] - Orthopedic Surgery [address], [address] [phone] Shelby Arrieta PA-C Closed 3-part fracture of proximal humerus with routine healing, right (Primary Dx); Age-related osteoporosis with current pathological fracture with routine healing, subsequent encounter 02/15/2025 9:07 AM CDT - 02/15/2025 11:59 PM CDT Hospital Encounter [facility] - Radiology [address] [address] Shelby Arrieta PA-C Discharge Disposition: Home or Self Care 02/15/2025 Travel 02/11/2025 Travel 02/08/2025 Orders Only [facility] - Orthopedic Surgery [address], [address] [phone] Shelby Arrieta PA-C Closed 3-part fracture of proximal humerus with routine healing, right 01/26/2025 Telephone [facility] - Orthopedic Surgery [address], [address] [phone] Shelby Arrieta PA-C Results (Bone Dexa and Referral ) 01/26/2025 Telephone [facility] - Orthopedic Surgery [address], [address] [phone] Shelby Arrieta PA-C Erroneous encounter-disregard 01/25/2025 Telephone [facility] [address], [address] [phone] Shelby Arrieta PA-C Results 01/18/2025 11:59 AM CDT - 01/18/2025 11:59 PM CDT Hospital Encounter [facility] - Outside Imaging Discharge Disposition: Home or Self Care 01/18/2025 11:59 AM CDT - 01/18/2025 11:59 PM CDT Hospital Encounter [facility] - Outside Imaging Discharge Disposition: Home or Self Care 01/18/2025 9:30 AM CDT Office Visit [facility] - Orthopedic Surgery [address], [address] [phone] Shelby Arrieta PA-C Closed 3-part fracture of proximal humerus with routine healing, right (Primary Dx) 01/18/2025 9:15 AM CDT - 01/18/2025 11:58 AM CDT Hospital Encounter [facility] - Radiology [address] [address] Shelby Arrieta PA-C Discharge Disposition: Home or Self Care 01/18/2025 Telephone [facility] - Orthopedic Surgery [address], [address] [phone] Shelby Arrieta PA-C Order Information Change 01/18/2025 Telephone [facility] - Orthopedic Surgery [address], [address] [phone] Shelby Arrieta PA-C Imaging 01/18/2025 Orders Only [facility] - Orthopedic Surgery [address], [address] [phone] Shelby Arrieta PA-C 01/18/2025 Travel 01/08/2025 Telephone [facility] - Orthopedics [address] [place] [phone] Rosaura Rey, SARI Order 01/08/2025 Orders Only [facility] - Orthopedic Surgery [address], [address] [phone] Shelby Arrieta PA-C Closed 3-part fracture of proximal humerus with routine healing, right from Last 3 Months Social History Tobacco Use Types Packs/Day Years Used Date Smoking Tobacco: Never Smokeless Tobacco: Never Tobacco Cessation:Counseling Given: Not Answered Alcohol Use Standard Drinks/Week Comments Never 0 (1 standard drink = 0.6 oz pur e alcohol) PHQ-2 Answer Date Recorded Patient Health Questionnaire-2 Score 0 03/22/2025 Sex and Gender Information Value Date Recorded Sex Assigned at Not on file Legal Sex Male 11:52 AM CDT Gender Identity Not on file Sexual Orientation Not on file Last Filed Vital Signs Vital Sign Reading Time Taken Comments Blood Pressure - - Pulse - - Temperature - - Respiratory Rate - - Oxygen Saturation - - Inhaled Oxygen Concentration - - Weight 102.1 kg (225 lb) 03/22/2025 9:26 AM CDT Height 177.8 cm (5' 10) 03/22/2025 9:26 AM CDT Body Mass Index 32.28 03/22/2025 9:26 AM CDT Plan of Treatment Upcoming Encounters Date Type Department Care Team (Late st Contact Info) Description 06/07/2025 9:30 AM INTENSIVE CARE ANAESTHETIST Office Visit [facility] - Orthopedic Surgery [address], [address] [place] [address] Shelby Arrieta PA-C [address] [place] [address] Health Maintenance Due Date Last Done Comments BONE DENSITY TESTING 1935 DTAP/TDAP/TD VACCINES (1 - Tdap) 1956 PNEUMOCOCCAL VACCINE 50+ (1 of 1 - PCV) 10/23/1987 ZOSTER VACCINE (1 of 2) 10/23/1987 Respiratory Syncytial Virus (RSV) Vaccine Pt: or over 60 yrs (1 - 1-dose 75+ series) 2012 MEDICARE AWV CALENDAR YEAR 2024 COVID-19 VACCINE (4 - season) 2025 06/14/2021, 10/04/2020, 09/01/2020 INFLUENZA VACCINE (#1) 2025 3, 05/07/2022, 04/18/2021, Additional history exists DEPRESSION SCREENING Completed 12/28/2024 HEPATITIS B VACCINE Aged Out No longe r eligible based on patient's age to complete this topic HIB VACCINE Aged Out No longer eligi ble based on patient's age to complete this topic HPV VACCINE Aged Out No longer eligi ble based on patient's age to complete this topic MENINGOCOCCAL (Group B) VACCINE SHARED DECISION-MAKING Aged Out No longer eligible based on patient's age to complete this topic MENINGOCOCCAL GROUPS A/C/Y/W VACCINE Aged Out No longer eligible based on patient's age to complete this topic Procedures Procedure Name Priority Date/Time Associated Diagnosis Comments XR HUMERUS RIGHT 2VW OR MORE Routine 03/22/2025 9:27 AM CDT Closed 3-part fracture of proximal humerus with routine healing, right PHOSPHORUS BLOOD Routine 03/03/2025 7:02 AM CDT [...] of proximal humerus with routine healing, right from Last 3 Months Results * XR Humerus Right 2Vw or More (03/22/2025 9:27 AM CDT) Anatomical Region Laterality Modality Upper Extremity Computed Radiogr aphy 03/22/2025 5:47 PM CDT Narrative 03/22/2025 5:47 PM CDT PROCEDURE: XR HUMERUS RIGHT 2VW OR MORE DATE/TIME OF EXAM: 03/22/2025 9:27 AM CLINICAL INFORMATION: None relevant/not provided if blank. Indication: S42.291D: Closed 3-part fracture of proximal humerus with routine healing, right Additional History: COMPARISON: 02/15/2025 FINDINGS/IMPRESSION: Healing comminuted proximal humerus fracture in unchanged alignment. No new fractures. Scattered opacities in the right lung are partially evaluated. > Interpreting Provider: Pro Rich DO on 03/22/2025 5:47 PM Procedure Note Pro Rich DO - 03/22/2025 PROCEDURE: XR HUMERUS RIGHT 2VW OR MORE DATE/TIME OF EXAM: 03/22/2025 9:27 AM CLINICAL INFORMATION: None relevant/not provided if blank. Indication: S42.291D: Closed 3-part fracture of proximal humerus with routine healing, right Additional History: COMPARISON: 02/15/2025 FINDINGS/IMPRESSION: Healing comminuted proximal humerus fracture in unchanged alignment. Nonew fractures. Scattered opacities in the right lung are partiallyevaluated. > Interpreting Provider: Pro Rich DO on 03/22/2025 5:47 PM Shelby Arrieta PA-C DIAGNOSTIC IMAGING ORDERABLE S Final Result * PTH INTACT (03/03/2025 7:02 AM CDT) PTH Intact 50 16 - 77 pg/mL [facility] Comment: Interpretive Guide Intact PTH Calcium ------- Normal Parathyroid Normal Normal Hypoparathyroidism Low or Low Normal Low Hyperparathyroidism Primary Normal or High High Secondary High Normal or Low Tertiary High High Non-Parathyroid Hypercalcemia Low or Low Normal High Test Performed at: [facility] [address] [place] [address] ANTONIETA SPICER MD Blood BLOOD SPECIMEN / Unknown 03/03/2025 7:02 AM CDT 03/03/2025 7:02 AM CDT Ai Helms PLATING AND POINT ASSEMBLY SUPERVISOR-MULTICUT LINE OPERATOR LAB - CHEMISTRY ORDERAB LES Final Result [facility] [address] [place] [address] * VITAMIN D 25-HYDROXY (03/03/2025 7:02 AM CDT) Pathologist [facility] Vitamin D, 25 Hydroxy 35 30 - 100 ng/mL [facility] Comment: Vitamin D Status 25-OH Vitamin D: Deficiency: <20 ng/mL Insufficiency: 20 - 29 ng/mL Optimal: > or = 30 ng/mL For 25-OH Vitamin D testing on patients on D2-supplementation and patients for whom quantitation of D2 and D3 fractions is required, the QuestAssureD(TM) 25-OH VIT D, (D2,D3), LC/MS/MS is recommended: order code 99743 (patients >2yrs). See Note 1 Note 1 For additional information, please refer to http://education.[employer]/faq/SJD226 (This link is being provided for informational/ educational purposes only.) Test Performed at: [facility] [address] ANTONIETA SPICER MD Blood BLOOD SPECIMEN / Unknown 03/03/2025 7:02 AM CDT 03/03/2025 7:02 AM CDT us Ai Helms PLATING AND POINT ASSEMBLY SUPERVISOR-MULTICUT LINE OPERATOR LAB - CHEMISTRY ORDERAB LES Final Result [facility] [address] [place] [address] * (ABNORMAL) CBC WITH DIFFERENTIAL (03/03/2025 7:02 [...] 1.1 % [facility] Comment: Test Performed at: [facility] [address] ANTONIETA SPICER MD Blood BLOOD SPECIMEN / Unknown 03/03/2025 7:02 AM CDT 03/03/2025 7:02 AM CDT us Ai Helms PLATING AND POINT ASSEMBLY SUPERVISOR-MULTICUT LINE OPERATOR LAB - HEMATOLOGY ORDERA BLES Final Result Performing Organization Address [facility] Co de Phone Number [facility] [address] [place] [address] * COMPREHENSIVE METABOLIC PANEL (03/03/2025 7:02 AM CDT) Pathologist [facility] Glucose 90 65 - 99 mg/dL [facility] Comment: Fasting reference interval BUN 20 7 - 25 mg/dL [facility] Creatinine 0.79 0.70 - 1.22 mg/dL [facility] eGFR by Cystatin C 86 > OR = 60 mL/min/1. 73m2 [facility] BUN/Creatinine Ratio SEE NOTE: 6 - (calc) [facility] Comment: Not Reported: BUN and [...] 46 U/L [facility] Comment: Test Performed at: [facility] [id number] [place] [address] ANTONIETA SPICER MD Blood BLOOD SPECIMEN / Unknown 03/03/2025 7:02 AM CDT 03/03/2025 7:02 AM CDT Ai Helms PLATING AND POINT ASSEMBLY SUPERVISOR-MULTICUT LINE OPERATOR LAB - CHEMISTRY ORDERAB LES Final Result Performing Organization Address City/[facility]/[place] [address] * PHOSPHORUS BLOOD (03/03/2025 7:02 AM CDT) Phosphorus 2.9 2.1 - 4.3 mg/dL [facility] Comment: Test Performed at: [facility] [address] [place] [address] ANTONIETA SPICER MD Blood BLOOD SPECIMEN / Unknown 03/03/2025 7:02 AM CDT 03/03/2025 7:02 AM CDT Ai Helms APRN-MULTICUT LINE OPERATOR LAB - CHEMISTRY ORDERAB LES Final Result Performing Organization Address [facility] [place] [address] * MAGNESIUM BLOOD (03/03/2025 7:02 AM CDT) Pathologist [facility] Magnesium 2.1 1.5 - 2.5 mg/dL [facility] Comment: Test Performed at: [facility] [address] [employer] [place] [address] ANTONIETA SPICER MD Blood BLOOD SPECIMEN / Unknown 03/03/2025 7:02 AM CDT 03/03/2025 7:02 AM CDT us Ai Helms APRN-MULTICUT LINE OPERATOR LAB - CHEMISTRY ORDERAB LES Final Result Performing Organization Address [facility] [place] [address] * TSH (03/03/2025 7:02 AM CDT) TSH 0.54 0.40 - 4.50 mIU/L [facility] Comment: Test Performed at: [facility] [place] [address] ANTONIETA SPICER MD Blood BLOOD SPECIMEN / Unknown 03/03/2025 7:02 AM CDT 03/03/2025 7:02 AM CDT us Ai Helms PLATING AND POINT ASSEMBLY SUPERVISOR-MULTICUT LINE OPERATOR LAB - CHEMISTRY ORDERAB LES Final Result [facility] [address] [place] [address] * XR Shoulder Right 2Vw or More (02/15/2025 9:13 AM CDT) Only the most recent of2 resultswithin the time period is included. Anatomical Region Laterality Modality Upper Extremity Computed Radiogr aphy 02/16/2025 1:5 2 PM CDT Narrative 02/16/2025 2:42 PM CDT [...] Martir Starkey MD on 02/16/2025 2:42 PM Shelby Arrieta PASanti DIAGNOSTIC IMAGING ORDERABLE S Final Result * Dexa Bone Density Outside (01/20/2025 3:10 PM CDT) Narrative [facility] - 03/01/2025 3:10 PM CDT This is a study from an outside facility that has been uploaded into PACS. us Provider [facility] IMAGING Final Result [facility] [address] [place] [address] * IMAGING/RADIOLOGY/XRAY RESULTS ORDER (01/20/2025) Anatomical Region Laterality Modality Other 01/20/2025 Narrative 01/20/2025 Ordered by an unspecified provider. us Scanned Document IMAGING Final Result from Last 3 Months Insurance [employer] MEDICARE ADV Care Teams Sane Rn Relationship Specialty Start Date End Date Sagar Corley PCP - General 12/25/24
--- OUTSIDE RECORDS SUMMARY | 2025-04-06 14:13 | XMS_ITS | Continuity of Care Document ---
Author Organization [facility] Address [address] [address] Insurance Providers Payer Plan Claims Address Claims Phone Policy Number Group Number Relation Employer Guarantor Name Guarantor Guarantor Address Guarantor Phone [employer] [facility] [id number] Self Pablo Isaac [address] [place] [address] [id number] Coven try [facility] [id number] Self Pablo Isaac [address] [place] [address] [id number] [employer] MEDIC ARE ADV [address], [place] [address] tel:[phone] [place] [phone] Self Pablo Isaac [address] [place] [address] [id number] Problems Condition ICD9 code ICD10 code SNOMED [...]
--- OUTSIDE RECORDS SUMMARY | 2025-04-06 14:13 | XMS_ITS | Encounter Summary ---
Author Organization [facility] Address [address] [place] [address] Care Team Providers Care Logistics Research Engineer Name Role Phone Sagar Corley Primary Care Provider Corey e Encounter Details Date Type Department Care Team (Late Contact Info) Description 03/04/2025 Results Follow-Up [facility] - Orthopedic Surgery [address] [place] [address] Ai Helms, BOTANY TECHNICIAN-FOOD SERVICE COUNTER CLERK [address] [place] [address] Social History Tobacco Use Types Packs/Day [...] Department Care Team (Late Contact Info) Description 06/07/2025 9:30 AM COAL HAULER Office Visit [facility] - Orthopedic Surgery [address], [address] [phone] Shelby Arrieta, PAAllyssaC [address] [place] [address] documented as of this encounter Visit Diagnoses Not on filedocumented in this encounter Care Teams Logistics Research Engineer Relationship Specialty Start Date End Date Sagar Corley PCP - General 12/25/24 documented as of this encounter
[2025-04-06 14:32] VITALS: BP 144/69; PULSE 77; RESP 17; O2SAT 98
[2025-04-06] MEDS: LIDOCAINE 1% PF INJ 5 ML VIAL INFILTRATE (14:34)
[2025-04-06 14:36] VITALS: BP 140/73; PULSE 77; RESP 14; O2SAT 97
[2025-04-06] MEDS: LIDOCAINE 2% PF LOCAL INJ 5 ML VIAL INFILTRATE (14:36)
[2025-04-06 14:39] VITALS: BP 137/74; PULSE 71; RESP 12; O2SAT 97
[2025-04-06 14:44] VITALS: BP 152/73; PULSE 78; RESP 14; O2SAT 100
== END 2025-04-06 15:06 | disposition home or self-care (01) ==
PROVIDERS: PCP Student in an Organized Health Care Education/Training Program; Visit Provider Anesthesiology Pain Medicine
PROC: (CPT 64454; principal; 2025-04-06 14:00)
DX: M17.12 Unilateral primary osteoarthritis, left knee (principal); M25.562 Pain in left knee
CPT/HCPCS: 64454; 99199